=== PATIENT | male | born 1935 | race Caucasian/White ===

== ENCOUNTER 2016-09-24 23:37 | Emergency (ER) | payer BC, OTHER ==
[~2016-09-24] VITALS: Ht 177.8 cm; Wt 100.0 kg
[~2016-09-24 23:37] MED LIST: ALBU0.08 INH; ALBU1AER9 INH; ATV/1 PO; DIGO0.2518 PO; FURO-85 PO; INSDGI SC; NVLGI/PEN SC; SIMV20TA2 PO; WARF5TAB7 PO
[2016-09-24 23:41] VITALS: TEMP 36.5; Ht 177.8 cm; Wt 100.0 kg
--- NOTE | 2016-09-25 00:07 | EMERGENCY ROOM VISIT NOTE ---
History Report prepared by Tracy: Cony Stewart Under the Supervision of: Dr. Ligia Rivers D.O. First contact with patient: 23:47 Chief Complaint: FALL Stated Complaint: FELL AND HAS NECK PAIN History of Present Illness The patient is a 81 year old male who presents to the Emergency Room with complaints of severe and worsening neck and bilateral shoulder pain starting about 17 hours ago. The patient fell off of the edge of the bed as he was getting up this morning. He fell face-forward on the carpeted floor. He hit his head on the floor. The patient notes an abrasion on his forehead and a mild headache. He also complains of neck and bilateral shoulder pain. He reports worsening pain with movement and palpation. He denies abdominal pain, back pain , urinary symptoms, diarrhea, constipation, weakness, or any other complaints. The patient is on Jantoven. Source of History: patient Onset: about 17 hours ago Position: neck, shoulder (bilateral) Symptom Intensity: severe Timing: worsening Modifying Factors (Worsening): movement, other (palpation) Associated Symptoms: + headache, No abdominal pain, No back pain, No diarrhea, No urinary symptoms, No weakness Review of Systems See HPI for pertinent positives & negatives. A total of 10 systems reviewed and were otherwise negative. Past Medical & Surgical Medical Problems: (1) Anticoagulant long-term use (2) Atrial fibrillation (3) Cellulitis (4) COPD (chronic obstructive pulmonary disease) (5) Diabetes (6) Dyslipidemia (7) Hypertension Surgical Problems: (1) History of total right hip arthroplasty (2) Status post right knee replacement Social History Problems: (1) Dislocated hip (2) Hip dislocation, right Family History Diabetes mellitus Heart disease Hypertension Social History Smoking Status: Former Smoker Alcohol Use: none Drug Use: none Marital Status: Housing Status: lives alone Occupation Status: retired Current/Historical Medications Scheduled Digoxin (Lanoxin), 0.25 MG PO HS Furosemide (Lasix), 40 MG PO QAM Insulin Aspart (Novolog Flexpen), 10 UNITS SC TIDM Insulin Glargine (Lantus), 46 UNITS SC QPM Lorazepam (Ativan), 1 MG PO HS Simvastatin (Zocor), 20 MG PO HS Warfarin Sod (Jantoven), 5 MG PO 6XWK Warfarin Sod (Jantoven), 7.5 MG PO WK Scheduled PRN Albuterol (Proair Hfa), 2 PUFFS INH QID PRN for Shortness of Breath Albuterol Soln (Proventil 0.083% 2.5MG/3ML), 2.5 MG INH QID PRN for Cough/ Shortness Of Breath Allergies Coded Allergies: No Known Allergies (Unverified , 09/25/16) Physical Exam Vital Signs Date Time Temp Pulse Resp B/P Pulse Ox O2 Delivery O2 Flow Rate FiO2 09/25/16 02:01 162/91 09/25/16 01:45 79 18 193/74 96 Nasal Cannula 5.0 09/25/16 00:56 83 18 183/90 97 Nasal Cannula 5.0 09/25/16 00:36 71 09/24/16 23:41 36.5 66 22 170/75 94 Room Air Physical Exam HEENT: Head - normocephalic. Abrasion and contusion to the right forehead. Pupils are equal, round, and reactive to light. Extraocular eye muscles are intact and sclera are anicteric. Nose - moist nasal mucosa without evidence of trauma or discharge. Mouth - moist buccal mucosa with no trauma to the teeth or signs of malocclusion. Neck: The neck is supple. Reproducible discomfort with palpation over the mid to upper cervical spine. There is no JVD or tracheal deviation. Chest: There are no signs of deformities, contusions or abrasions to the chest wall. There is no obvious crepitus or paradoxical chest rise. Heart: Regular, rate, and rhythm. There is a normal S1 and S2 with no murmurs, clicks, or gallops appreciated. Lungs: Clear to auscultation bilaterally with no wheezes, rales, or rhonchi. Abdomen: Soft, completely nontender, nondistended, with good bowel sounds. There is no sign of trauma such as contusions, abrasions or penetrations. There are no palpable pulsatile masses or hepatosplenomegaly. There is no guarding, rigidity, or rebound noted. Pelvis: Stable to rock and compression. Extremities: No obvious trauma, deformities, contusions, or edema. There are easily palpable peripheral pulses. Neuro: The patient is awake and alert and easily able to follow commands. Muscle strength is 5 out of 5 in all 4 extremities. Otherwise, neuro exam is unremarkable. Back: The entire thoracic, lumbar, and sacral spine were palpated. There are no obvious step-offs or deformities noted. There are no obvious signs of trauma such as contusions abrasions penetrations noted to the back. Medical Decision & Procedures ER Provider Diagnostic Interpretation: CT results as stated below per my review and radiologist interpretation: CT HEAD No calvarial or brain injury. Involutional and chronic microvascular ischemic changes. CT C SPINE Type II odontoid fracture. Adjacent calcification could reflect early healing of subacute injury. Acute fracture with unrelated chronically calcified pannus is also possible. Regardless, this is unstable and neurosurgical consultation should be considered. Radiologist: All Waters MD Laboratory Results 09/25/16 00:06 09/25/16 00:06 Test 09/25/16 00:06 Red Blood Count 5.39 M/uL (4.7-6.1) Mean Corpuscular Volume 83.3 fL (80-100) Mean Corpuscular Hemoglobin 28.4 pg (25-34) Mean Corpuscular Hemoglobin Concent 34.1 g/dl (32-36) RDW Standard Deviation 43.8 fL (36.4-46.3) RDW Coefficient of Variation 14.4 % (11.5-14.5) Mean Platelet Volume 10.6 fL (7.4-10.4) Anion Gap 9.0 mmol/L (3-11) Est Creatinine Clear Calc Drug Dose 47.4 ml/min Estimated GFR () 53.5 Estimated GFR (Non- 46.1 BUN/Creatinine Ratio 21.4 (10-20) Calcium Level 9.5 mg/dl (8.5-10.1) Laboratory results per my review. Medications Administered Medications (Trade) Dose Ordered Sig/Claribel Route Start Time Stop Time Status Last Admin Dose Admin Hydromorphone HCl 2 mg 2 mg NOW STAT IV 09/25/16 00:09 09/25/16 00:10 DC 09/25/16 00:13 2 MG Sodium Chloride (Nss 1000ml) 1,000 ml @ 200 mls/hr Q5H STAT IV 09/25/16 01:22 09/25/16 02:40 DC 09/25/16 01:22 200 MLS/HR Procedure Dilaudid Inj 2 mg IV ED Course 2347: Past medical records reviewed. The patient was evaluated in room A10. A complete history and physical exam was performed. An IV lock was initiated and labs are drones above. 0009: Dilaudid Inj 2 mg IV. The patient went for CT scan of the brain and cervical spine as described above. 0121: Upon reevaluation, I discussed findings and results with the patient and his family. They verbalized agreement of the treatment plan. The patient is more comfortable at this time. I discussed the patient's case with Dr. Akhtar, emergency department physician with [facility]. The patient will be transferred to [facility] via [facility] for further management and care. I kept the patient's family abreast of situation during the transfer. Medical Decision This is a 81 year old male who presents with neck and bilateral shoulder pain. Differential diagnosis includes but is not limited to forehead contusion, skull fracture, intracranial hemorrhage, C-spine fracture, cervical strain. His labs showed normal white count, stable H&H, BUN 30, creatinine 124, glucose 148. This is an 81-year-old male patient who slipped off of his bed striking his forehead on the floor and suffering a hyperextension injury. On CT scan, the patient has evidence of an odontoid fracture with some surrounding calcifications. In light of this acute injury with a hyperextension mechanism, I am concerned about an acute fracture. The patient is neurologically intact. Consults Time Called: 114 Consulting Physician: Dr. Akhtar, emergency department physician with [facility] Returned Call: 0121 I discussed the patient's case with Dr. Akhtar, emergency department physician with [facility]. Impression Primary Impression: Odontoid fracture Additional Impression: Fall Scribe Attestation The scribe's documentation has been prepared under my direction and personally reviewed by me in its entirety. I confirm that the note above accurately reflects all work, treatment, procedures, and medical decision making performed by me. Departure Information Dispostion Transfer Acute Care Facility Referrals Nolan Jesus D.O. (PCP) Patient Instructions A Signature Page, My [facility]
[2016-09-25] MEDS ORDERED: HYDROmorphone INJ 2 MG/ML SYR/VIAL IV STA (00:09)
[2016-09-25 00:17] LABS: HEMATOCRIT 44.9 % (42-52); MEAN CELL VOLUME 83.3 fL (80-100); MEAN CORPUSCULAR HEMOGLOBIN 28.4 pg (25-34); MEAN CORPUSCULAR HGB CONC 34.1 g/dl (32-36); MEAN PLATELET VOLUME 10.6 fL (7.4-10.4); PLATELET COUNT 166 K/uL (130-400); RED BLOOD COUNT 5.39 M/uL (4.7-6.1); WHITE BLOOD COUNT 9.38 K/uL (4.8-10.8)
[2016-09-25] MEDS ORDERED: FRS/40 PO (00:34)
[2016-09-25] MEDS ORDERED: INSDGI SC (00:36)
[2016-09-25 00:39] LABS: BUN/CREATININE RATIO 21.4 (10-20); CALCIUM 9.5 mg/dl (8.5-10.1); CREATININE 1.4 mg/dl (0.60-1.40); POTASSIUM 3.8 mmol/L (3.5-5.1)
[2016-09-25] MEDS ORDERED: SODIUM CHLORIDE 0.9% 1000ML 1,000 ML IV STA (01:22)
[2016-09-25 01:45] VITALS: PULSE 79; O2SAT 96
[2016-09-25 02:01] VITALS: BP 162/91
--- NOTE | 2016-09-25 07:10 | DIAGNOSTIC IMAGING REPORT ---
HEAD CT NONCONTRAST CT DOSE: 1071.63 mGy.cm HISTORY: Head injury. eval for trauma TECHNIQUE: Multiaxial CT images of the head were performed without the use of intravenous contrast. Automated exposure control was utilized for this study. Comparison: None. Findings: The paranasal sinuses and mastoid air cells are clear. The calvarium and skull base are intact. There is no mass, hematoma, midline shift, acute infarct. White matter hypodensity is nonspecific but suggestive of microvascular ischemic change. The ventricles and sulci demonstrate mild age-related involutional changes. Impression: No acute intracranial abnormality. Atrophy and microvascular ischemic changes. Electronically signed by: Cam Sánchez M.D. 09/25/2016 7:08 AM Dictated Date/Time: 09/25/2016 7:06 AM
--- NOTE | 2016-09-25 07:31 | DIAGNOSTIC IMAGING REPORT ---
CT SCAN OF THE CERVICAL SPINE CLINICAL HISTORY: Fall. COMPARISON STUDY: No priors. TECHNIQUE: CT scan of the cervical spine is performed from the skull base to the upper thoracic spine. Images are reviewed in the axial, sagittal, and coronal planes. IV contrast was not administered for this examination. FINDINGS: Skeletal structures: The skeletal structures are osteopenic. There is an age indeterminant type II odontoid fracture. Periosteal reaction suggested to subacute/healing. Vertebral body height and alignment are maintained. The odontoid process and lateral masses are intact. The atlantoaxial articulation is preserved noting advanced productive degenerative change with bony overgrowth and narrowing of the interval. The spinous processes appear intact. There is advanced multilevel cervical spondylosis. Uncovertebral and facet arthropathy contributing to neural foraminal stenosis at most levels. Anterior osteophytes are seen from C3 through C7. Intervertebral discs: There is moderate to advanced degenerative disc space narrowing seen from C4 to C5 through C6-C7. Moderate narrowing is seen at C3-C4. Central canal: Posterior disc osteophyte complexes at C4-C5, C5-C6, and C6-C7 likely contribute to acquired compromise of the central canal. Soft tissues: The prevertebral and paraspinous soft tissues are within normal limits. There is atherosclerotic calcification of the carotid bulbs. Calvarium: The visualized calvarium at the skull base appears intact. Brain parenchyma: Partially visualized brain parenchyma the skull base is within normal limits noting age-related involutional change. Sinuses and mastoids: The visualized paranasal sinuses are clear. The mastoid air cells are well pneumatized. Lung apices: Emphysematous changes noted. There is biapical scarring. IMPRESSION: 1. There is age indeterminant but suspected acute to subacute type II fracture through the base of the odontoid process. This fracture may be unstable and neurosurgical assessment is recommended. 2. No additional fracture is identified involving the cervical spine. No subluxation is seen. 3. Osteopenia and multilevel cervical spondylosis as above. Electronically signed by: Sterling Balderas M.D. 09/25/2016 7:29 AM Dictated Date/Time: 09/25/2016 7:23 AM
[2016-12-23] MEDS ORDERED: LCTX PO (15:02)
[2016-12-23] MEDS ORDERED: CLIN300C2 PO (15:02)
[2016-12-23] MEDS ORDERED: PRD20 PO (15:02)
[2017-01-12] MEDS ORDERED: DMD20 PO (14:22)
[2017-01-12] MEDS ORDERED: PRED10TA PO (14:22)
[2017-01-12] MEDS ORDERED: GUAI1TAB68 PO (14:35)
[2017-02-19] MEDS ORDERED: SODI1ENE PR (13:39)
[2017-02-19] MEDS ORDERED: FINA5TAB PO (13:39)
[2017-02-19] MEDS ORDERED: ADVIN50/60 INH (13:39)
[2017-02-19] MEDS ORDERED: NVLG SC ×2 (13:39)
[2017-02-19] MEDS ORDERED: LORA-741 PO (13:39)
[2017-02-19] MEDS ORDERED: AMOX500T PO (13:39)
[2017-02-19] MEDS ORDERED: TORS10TA14 PO ×2 (13:39)
[2017-02-19] MEDS ORDERED: IPRASOL4 INH (13:39)
== END 2016-09-25 02:14 | disposition short-term general hospital (02) ==
LOC: C.EDB 23:38 → C.EDA 09-25 02:14
DX: S12.112A Nondisplaced Type II dens fracture, initial encounter for closed fracture (principal); M54.2 Cervicalgia; M25.511 Pain in right shoulder; M25.512 Pain in left shoulder; R51 Headache; S00.83XA Contusion of other part of head, initial encounter; S00.81XA Abrasion of other part of head, initial encounter; I48.91 Unspecified atrial fibrillation; E11.9 Type 2 diabetes mellitus without complications; E78.5 Hyperlipidemia, unspecified; I10 Essential (primary) hypertension; J44.9 Chronic obstructive pulmonary disease, unspecified; Z79.01 Long term (current) use of anticoagulants; Z79.4 Long term (current) use of insulin; Z79.899 Other long term (current) drug therapy; Z87.891 Personal history of nicotine dependence; W06.XXXA Fall from bed, initial encounter

== ENCOUNTER 2016-12-18 17:33 | Inpatient (IN) | payer BC, OTHER ==
[~2016-12-18] VITALS: Ht 177.8 cm; Wt 104.6 kg
[~2016-12-18 17:33] MED LIST changes: +FRS/40 PO; -FURO-85 PO
[2016-12-18] MEDS ORDERED: SODIUM CHLORIDE 0.9% 500ML 500 ML IV STA (17:49)
--- NOTE | 2016-12-18 17:54 | EMERGENCY ROOM VISIT NOTE ---
History Report prepared by Tracy: Joelle Malcolm Under the Supervision of: Dr. Allan Ryan M.D. First contact with patient: 17:42 Chief Complaint: SHORTNESS OF BREATH Stated Complaint: SOB Nursing Triage Summary: [facility]. pt has bilat lower ext edema x1 month has been on lasix not helping. pt was given 1 duoneb prehospital pt arrived with o2 sat at 82% ra using o2 at nursing facility at [facility] . daughter reports pt has periods of demnetia/confusion at nursing facility. pt is alert and oriented now. History of Present Illness The patient is a 81 year old male who presents to the Emergency Room with complaints of constant shortness of breath beginning this afternoon. Per the nursing staff the patient has been in a nursing facility for the past 2 weeks after breaking his neck and having surgery. The patient complains of bilateral leg swelling beginning 1 month ago with no relief after starting Lasix, non- productive cough, and left shoulder pain. Per nursing staff the patient wears 2L of oxygen at the facility he is at. Source of History: patient, nursing staff Onset: this afternoon Position: other (global) Quality: other (SOB) Timing: constant Associated Symptoms: + cough Note: Pt has leg swelling and shoulder pain. Review of Systems See HPI for pertinent positives & negatives. A total of 10 systems reviewed and were otherwise negative. Past Medical & Surgical Medical Problems: (1) Anticoagulant long-term use (2) Atrial fibrillation (3) Cellulitis (4) COPD (chronic obstructive pulmonary disease) (5) Diabetes (6) Dyslipidemia (7) Hypertension (8) Respiratory failure, acute Surgical Problems: (1) History of total right hip arthroplasty (2) Status post right knee replacement Social History Problems: (1) Dislocated hip (2) Hip dislocation, right Family History Diabetes mellitus Heart disease Hypertension Social History Smoking Status: Former Smoker Alcohol Use: none Drug Use: none Marital Status: Housing Status: lives alone Occupation Status: retired Current/Historical Medications Scheduled Aspirin (Aspir-81), 1 TAB PO DAILY Furosemide (Lasix), 1 TAB PO DAILY Insulin Aspart (Novolog Flexpen), 10 UNITS SC TIDM Insulin Glargine (Lantus), 46 UNITS SC QPM Lorazepam (Ativan), 1 MG PO HS Melatonin (Kp Melatonin), 1 TAB PO HS Oseltamivir (Tamiflu), 75 MG PO BID Oxygen (Oxygen), 1 LITER NA PRN Polyethylene Glycol 3350 (Bulk (Polyethylene Glycol 3350), 17 GM PO DAILY Ranitidine (Zantac), 1 TAB PO BID Simvastatin (Zocor), 20 MG PO HS Warfarin Sod (Jantoven), 5 MG PO 6XWK Warfarin Sod (Jantoven), 7.5 MG PO WK Scheduled PRN Ondansetron Hcl (Zofran), 4 MG PO for Nausea Miscellaneous Medications Albuterol Sulfate (Proventil Hfa) Docusate Sodium (Dok) Ipratropium Britt (Nasal) (Ipratropium Britt) Magnesium Hydroxide (Milk Of Magnesia), 30 ML PO Trazodone Hcl (Trazodone), 50 MG PO Allergies Coded Allergies: No Known Allergies (Unverified , 09/25/16) Physical Exam Vital Signs Date Time Temp Pulse Resp B/P Pulse Ox O2 Delivery O2 Flow Rate FiO2 12/18/16 19:50 36.3 108 16 94/59 93 Nasal Cannula 4.0 12/18/16 19:41 107 20 101/54 97 Nasal Cannula 4.0 12/18/16 19:05 102 20 106/66 100 Nebulizer 12/18/16 18:10 91 22 98 Nasal Cannula 5.0 12/18/16 17:48 95 Nasal Cannula 5.0 12/18/16 17:47 95 Nasal Cannula 5.0 12/18/16 17:42 93 12/18/16 17:38 36.6 96 28 103/60 80 Room Air Physical Exam GENERAL: Patient is a healthy-appearing well-nourished HEAD: Normocephalic atraumatic EYES: Ocular movements intact pupils equal and react to light OROPHARYNX mucous membranes are moist no exudates present no erythema or edema present NECK: Supple no nuchal rigidity CHEST: Good equal expansion LUNGS: Clear and equal to auscultation CARDIAC: Normal S1 and S2 ABDOMEN: Soft nontender no guarding BACK: No CVA tenderness EXTREMITIES: No pain upon palpation normal muscle strength in all groups no clubbing cyanosis or edema NEURO: Patient is following commands is answering questions appropriately. Alert and oriented x3 Cranial Nerves 2-12 grossly intact Medical Decision & Procedures Laboratory Results 12/18/16 17:45 Red Blood Count 3.89, Mean Corpuscular Volume 82.3, Mean Corpuscular Hemoglobin 27.0, Mean Corpuscular Hemoglobin Concent 32.8, Mean Platelet Volume 9.4, Neutrophils (%) (Auto) 70.0, Lymphocytes (%) (Auto) 13.3, Monocytes (%) (Auto) 12.6, Eosinophils (%) (Auto) 3.0, Basophils (%) (Auto) 0.9, Neutrophils # (Auto ) 3.72, Lymphocytes # (Auto) 0.71, Monocytes # (Auto) 0.67, Eosinophils # (Auto ) 0.16, Basophils # (Auto) 0.05 12/18/16 17:45 Test 12/18/16 17:45 12/18/16 17:50 12/18/16 17:52 12/18/16 17:55 White Blood Count 5.32 K/uL (4.8-10.8) Red Blood Count 3.89 M/uL (4.7-6.1) Hemoglobin 10.5 g/dL (14.0-18.0) Hematocrit 32.0 % (42-52) Mean Corpuscular Volume 82.3 fL (80-100) Mean Corpuscular Hemoglobin 27.0 pg (25-34) Mean Corpuscular Hemoglobin Concent 32.8 g/dl (32-36) Platelet Count 199 K/uL (130-400) Mean Platelet Volume 9.4 fL (7.4-10.4) Neutrophils (%) (Auto) 70.0 % Lymphocytes (%) (Auto) 13.3 % Monocytes (%) (Auto) 12.6 % Eosinophils (%) (Auto) 3.0 % Basophils (%) (Auto) 0.9 % Neutrophils # (Auto) 3.72 K/uL (1.4-6.5) Lymphocytes # (Auto) 0.71 K/uL (1.2-3.4) Monocytes # (Auto) 0.67 K/uL (0.11-0.59) Eosinophils # (Auto) 0.16 K/uL (0-0.5) Basophils # (Auto) 0.05 K/uL (0-0.2) RDW Standard Deviation 51.0 fL (36.4-46.3) RDW Coefficient of Variation 16.7 % (11.5-14.5) Immature Granulocyte % (Auto) 0.2 % Immature Granulocyte # (Auto) 0.01 K/uL (0.00-0.02) Prothrombin Time 12.8 SECONDS (9.0-12.0) Prothromb Time International Ratio 1.2 (0.9-1.1) Activated Partial Thromboplast Time 35.7 SECONDS (21.0-31.0) Partial Thromboplastin Ratio 1.4 Est Creatinine Clear Calc Drug Dose 30.4 ml/min Estimated GFR () 29.3 Estimated GFR (Non- 25.3 BUN/Creatinine Ratio 18.1 (10-20) Calcium Level 9.2 mg/dl (8.5-10.1) Magnesium Level 2.2 mg/dl (1.8-2.4) Total Bilirubin 0.7 mg/dl (0.2-1) Aspartate Amino Transf (AST/SGOT) 21 U/L (15-37) Alanine Aminotransferase (ALT/SGPT) 11 U/L (12-78) Alkaline Phosphatase 268 U/L (45-117) Total Creatine Kinase 76 U/L (39-308) Creatine Kinase MB 1.5 ng/ml (0.5-3.6) Creatine Kinase MB Ratio 2.0 (0-3.0) Troponin I 0.017 ng/ml (0-0.045) Pro-B-Type Natriuretic Peptide 5308 pg/ml (0-1800) Total Protein 8.4 gm/dl (6.4-8.2) Albumin 2.6 gm/dl (3.4-5.0) Globulin 5.8 gm/dl (2.5-4.0) Albumin/Globulin Ratio 0.4 (0.9-2) Thyroid Stimulating Hormone (TSH) 2.860 uIu/ml (0.300-4.500) Influenza Type A (RT-PCR) Neg for Influ A (NEG) Influenza Type A Antigen Neg for Influ A (NEG) Influenza Type B Antigen Neg for Influ B (NEG) Influenza Type B (RT-PCR) Neg for Influ B (NEG) Bedside Lactic Acid Venous 1.46 mmol/L (0.90-1.70) Bedside Hemoglobin 11.6 g/dl (14.0-18.0) Bedside Hematocrit 34 % (42-52) Bedside Sodium 138 mEq/L (135-144) Bedside Potassium 4.3 mEq/L (3.3-5.0) Bedside Chloride 94 mEq/L (101-112) Bedside Total CO2 31 mEq/l (24-31) Anion Gap 19.0 mmol/L (16-25) Bedside Blood Urea Nitrogen 37 mg/dl (7-18) Bedside Creatinine 2.0 mg/dl (0.6-1.3) Bedside Glucose (other) 144 mg/dl (70-99) Bedside Ionized Calcium (Alex) 1.12 mmol/l (1.12-1.32) Labs reviewed by ED physician. Medications Administered Medications (Trade) Dose Ordered Sig/Claribel Route Start Time Stop Time Status Last Admin Dose Admin Sodium Chloride (Nss 500ml) 500 ml @ 999 mls/hr Q31M STAT IV 12/18/16 17:49 12/18/16 18:19 DC 12/18/16 19:04 999 MLS/HR Albuterol/ Ipratropium (Duoneb) 12 ml ONE ONCE INH 12/18/16 18:00 12/18/16 18:01 DC 12/18/16 18:10 12 ML Piperacillin Sod/ Tazobactam Sod (Zosyn Iv) 4.5 gm NOW STAT IV 12/18/16 18:33 12/18/16 18:35 DC 12/18/16 19:41 4.5 GM Levofloxacin 500 mg 500 mg NOW STAT IV 12/18/16 18:33 12/18/16 18:35 DC 12/18/16 19:05 500 MG Vancomycin HCl 1000 mg/Sodium Chloride 270 ml @ 125 mls/hr NOW STAT IV 12/18/16 18:33 12/18/16 20:42 DC 12/18/16 19:03 125 MLS/HR Methylprednisolone Sodium Succinate/ Syringe (Solu-Medrol IV/ Syringe) 0.32 ml @ 1.5 mls/min 1945 IV 12/18/16 19:45 12/18/16 20:00 DC 12/18/16 20:15 1.5 MLS/MIN ECG Indication: SOB/dyspnea Rate (beats per minute): 96 Rhythm: atrial fibrillation Findings: PVC, RBBB (incomplete), no acute ischemic change, other (old inferior infarct) ED Course 174: Past medical records reviewed. The patient was evaluated in room A3. A complete history and physical examination was performed. 1749: Sodium Chloride 500 ml @ 999 mls/hr IV. 1800: Duoneb 12ml INH. 1833: Vancomycin HCl 1000mg/Sodium Chloride 270ml @ 125mls/hr IV, Levofloxacin 500mg IV, Zosyn IV 4.5gm IV. 1906: I discussed the patient's case with Dr. Hickey, he has agreed to evaluate the patient for further management and care. 1917: Upon reexamination the patient is hemodynamically stable. I discussed results and treatment plan with the patient. He verbalizes agreement and understanding. I spoke with Dr. Hickey from the [facility] Hospitalist Service. The patient will be evaluated for further management. Medical Decision Differential diagnosis: Etiologies such as infections, reactive airway disease, pneumonia, pneumothorax , COPD, CHF, cardiac ischemia, pulmonary embolism, musculoskeletal, gastrointestinal, as well as others were entertained. This is an 81-year-old male who presents emergency department complaining of shortness of breath. The patient has normal chest x-ray therefore he was started on IV antibiotics and pancultured up. He was given an hour-long breathing treatment. I did discuss the case with the hospitalist service who agreed to admit the patient. Patient family were in agreement with the treatment plan. Consults Time Called: 1849 Consulting Physician: Dr. Hickey - [facility] Returned Call: 1906 I discussed the patient's case with Dr. Hickey, he has agreed to evaluate the patient for further management and care. Impression Primary Impression: Pneumonia Scribe Attestation The scribe's documentation has been prepared under my direction and personally reviewed by me in its entirety. I confirm that the note above accurately reflects all work, treatment, procedures, and medical decision making performed by me. Departure Information Dispostion Being Evaluated By Hospitalist Referrals Nolan Jesus D.O. (PCP) Patient Instructions My [facility] Problem Qualifiers Primary Impression: Pneumonia Pneumonia type: due to unspecified organism Laterality: unspecified laterality Lung location: unspecified part of lung Qualified Codes: J18.9 - Pneumonia, unspecified organism
[2016-12-18 18:00] LABS: BASO % 0.9 %; BASO ABS # 0.05 K/uL (0-0.2); COMPLETE YES; IG% 0.2 %; LYMPH % 13.3 %; LYMPH ABS # 0.71 K/uL (1.2-3.4); MEAN CELL VOLUME 82.3 fL (80-100); MEAN CORPUSCULAR HGB CONC 32.8 g/dl (32-36); MEAN PLATELET VOLUME 9.4 fL (7.4-10.4); MONO % 12.6 %; PLATELET COUNT 199 K/uL (130-400); RED BLOOD COUNT 3.89 M/uL (4.7-6.1); WHITE BLOOD COUNT 5.32 K/uL (4.8-10.8)
[2016-12-18] MEDS ORDERED: ALBUT/IPRATROP 3MG/0.5MG NEB 3 ML VIAL INH ONE (18:00)
[2016-12-18 18:08] LABS: ISTAT HEMOGLOBIN 11.6 g/dl (14.0-18.0); ISTAT IONIZED CALCIUM 1.12 mmol/l (1.12-1.32)
--- NOTE | 2016-12-18 18:08 | DIAGNOSTIC IMAGING REPORT ---
CHEST ONE VIEW PORTABLE CLINICAL HISTORY: Cough, hypoxia. COMPARISON STUDY: 12/04/2015 FINDINGS: The heart is enlarged. There is radiographic evidence of congestive failure. Underlying interstitial lung disease cannot be excluded. There are more focal airspace opacities within the base the right upper lobe, and left lung base. A coexistent pneumonia cannot be excluded. Clinical and radiographic follow-up is recommended.[ IMPRESSION: 1. Cardiomegaly and radiographic evidence of congestive failure 2. Focal airspace opacities within the lung bases and base the right upper lobe. These could represent either pneumonia or focal edema. Clinical and radiographic follow-up is recommended Electronically signed by: Kevin Dean M.D. 12/18/2016 6:06 PM Dictated Date/Time: 12/18/2016 6:05 PM
[2016-12-18 18:10] VITALS: PULSE 91; O2SAT 98
[2016-12-18] MEDS ORDERED: IPRA0.03 INH (18:14)
[2016-12-18] MEDS ORDERED: ASPI-232 PO (18:14)
[2016-12-18] MEDS ORDERED: FURO-85 PO (18:14)
[2016-12-18] MEDS ORDERED: DOCU100T PO (18:14)
[2016-12-18] MEDS ORDERED: ALBUAER INH (18:14)
[2016-12-18] MEDS ORDERED: TRAZ50TA35 PO (18:14)
[2016-12-18] MEDS ORDERED: ZNTT/150 PO (18:14)
[2016-12-18] MEDS ORDERED: OXGN (18:14)
[2016-12-18] MEDS ORDERED: MELA1TAB5 PO (18:14)
[2016-12-18] MEDS ORDERED: POLY1POW2 PO (18:14)
[2016-12-18] MEDS ORDERED: MOML PO (18:14)
[2016-12-18] MEDS ORDERED: OSEL75CA12 PO (18:14)
[2016-12-18] MEDS ORDERED: ONDA4TAB46 PO (18:14)
[2016-12-18 18:23] LABS: BUN/CREATININE RATIO 18.1 (10-20); CALCIUM 9.2 mg/dl (8.5-10.1); CREATININE 2.3 mg/dl (0.60-1.40); POTASSIUM 4.2 mmol/L (3.5-5.1)
[2016-12-18 18:28] LABS: ALB/GLOB RATIO 0.4 (0.9-2)
[2016-12-18] MEDS ORDERED: VANCOMYCIN INJ 1,000 MG in SODIUM CHLORIDE 0.9% 250ML 250 ML IV STA (18:33)
[2016-12-18] MEDS ORDERED: LEVAQUIN 500MG / 100ML D5W IV STA (18:33)
[2016-12-18] MEDS ORDERED: PIPERACILLIN/TAZOBACTAM 4.5 GM/100ML D5W IV STA (18:33)
[2016-12-18] MEDS ORDERED: METHYLPREDNISOLONE IV 20 MG in SYRINGE 0 ML IV SCH (19:45)
[2016-12-18 19:50] VITALS: BP 94/59; PULSE 108; TEMP 36.3; O2SAT 93; Ht 177.8 cm; Wt 104.6 kg
[2016-12-18 19:52] LABS: INR 1.2 (0.9-1.1); PARTIAL THROMBOPLASTIN RATIO 1.4; PROTHROMBIN TIME (PATIENT) 12.8 SECONDS (9.0-12.0)
[2016-12-18 19:56] LABS: INFLUENZA A PCR Neg for Influ A (NEG); INFLUENZA B PCR Neg for Influ B (NEG)
[2016-12-18 20:01] LABS: MAGNESIUM 2.2 mg/dl (1.8-2.4); THYROID STIMULATING HORMONE 2.86 uIu/ml (0.300-4.500)
[2016-12-18 20:12] LABS: ALLEN TEST POS (POS); ARTERIAL BLD GAS O2 SATURATION 93.3 % (90-95); ARTERIAL BLOOD GAS BASE EXCESS 7.5 mEq/L (-9-1.8); ARTERIAL BLOOD GAS HCO3 33 mmol/L (19-24); ARTERIAL BLOOD GAS PO2 76 mm/Hg (80-95); ARTERIAL BLOOD GAS pH 7.44 (7.35-7.45); O2 ADMINISTRATION 4 LITERS O2
[2016-12-18] MEDS ORDERED: GUAIFENESIN 600 MG TABCR PO ONE (21:13)
[2016-12-18] MEDS ORDERED: DEXTROSE 50% 50 ML SYR IV PRN (21:15)
[2016-12-18] MEDS ORDERED: TRAMADOL HCL 50 MG TAB PO PRN (21:15)
[2016-12-18] MEDS ORDERED: NITROGLYCERIN 0.4 MG SL PER TAB CHARGE SL PRN (21:15)
[2016-12-18] MEDS ORDERED: INSULIN GLARGINE SOLOSTAR 100 UNITS/ML 3 ML PEN SC ONE (21:15)
[2016-12-18] MEDS ORDERED: GLUCAGON FOR INJ 1 MG VIAL SQ PRN (21:15)
[2016-12-18] MEDS ORDERED: HYDROmorphone INJ 0.5 MG/0.5 ML SYR IV PRN (21:15)
[2016-12-18] MEDS ORDERED: LEVALBUTEROL/IPRATROPIUM NEB INH PRN (21:15)
[2016-12-18] MEDS ORDERED: ACETAMINOPHEN 325 MG TAB PO PRN (21:15)
[2016-12-18] MEDS ORDERED: ONDANSETRON INJ 2 MG/ML 2 ML VIAL IV PRN (21:15)
[2016-12-18] MEDS ORDERED: GLUCOSE 10 TABS/TUBE PO PRN (21:15)
[2016-12-18] MEDS ORDERED: GLUCOSE 40% GEL 15 GM TUBE PO PRN (21:15)
[2016-12-18] MEDS ORDERED: IPRATROPIUM BROMIDE NEB SOLN 0.02% 2.5 ML VIAL INH PRN (21:45)
[2016-12-18] MEDS ORDERED: LEVALBUTEROL 1.25MG/0.5ML NEB INH PRN (21:45)
--- NOTE | 2016-12-18 22:31 | DIAGNOSTIC IMAGING REPORT ---
CT SCAN OF THE ABDOMEN AND PELVIS WITHOUT CONTRAST CLINICAL HISTORY: Generalized abdominal pain COMPARISON STUDY: No previous studies for comparison. TECHNIQUE: CT scan of the abdomen and pelvis was performed from the lung bases to the proximal femurs. Images are reviewed in the axial, sagittal, and coronal planes. IV contrast was not administered for this examination. CT DOSE: 1174.90 mGycm FINDINGS: Lower chest: The heart is enlarged. There are bilateral pleural effusions. There is bibasal atelectasis. There is bilateral subpleural interstitial thickening/edema. The findings are suggestive of congestive failure with interstitial edema. Liver: The unenhanced liver is normal in size, contour, and attenuation. There is no intrahepatic biliary ductal dilatation. Gallbladder: Unremarkable. Spleen: Normal in size and attenuation. Pancreas: Unremarkable. Adrenal glands: Unremarkable. Kidneys: There are bilateral hypodense renal lesions most consistent with cysts. The lesion on the right measures 39 mm. The lesion on the left measures 26 mm. Bowel: There are no transition zones indicate bowel obstruction. Evaluation is limited due to respiratory motion artifact, and the lack of intravenous and oral contrast. Peritoneum: There is no intraperitoneal free air or abdominal ascites. There is a small left inguinal hernia containing fat and fluid Vasculature: There are atheromatous changes present within the aorta. There is no aneurysmal dilatation. Adenopathy: None. Pelvic viscera: There is mild bladder distention. Skeletal structures: There are postsurgical changes of a total right hip arthroplasty IMPRESSION: 1. Evidence of congestive failure with cardiomegaly, bilateral pleural effusions, and bilateral subpleural interstitial thickening/edema 2. No evidence of bowel obstruction. No evidence of free air 3. Bilateral renal cysts. No renal, ureteral, or bladder calculi identified 4. Mildly distended bladder 5. Small left inguinal hernia Electronically signed by: Kevin Dean M.D. 12/18/2016 10:30 PM Dictated Date/Time: 12/18/2016 10:25 PM
[2016-12-18] MEDS: DOXYCYCLINE HYCLATE 100 MG in DEXTROSE 5% 100ML IV SCH (22:33)
[2016-12-18 23:41] VITALS: BP 103/68; PULSE 92; TEMP 36.3; O2SAT 92
[2016-12-19] VITALS (10 sets, daily range): BP systolic 109–124; BP diastolic 71–87; PULSE 84–95; TEMP 36.2–36.7; O2SAT 91–96
[2016-12-19 00:35] LABS: URINE APPEARANCE CLEAR (CLEAR); URINE BILIRUBIN NEG (NEG); URINE COLOR DK YELLOW; URINE NITRITE NEG (NEG); URINE SPECIFIC GRAVITY 1.015 (1.000-1.030); UROBILINOGEN NEG (NEG)
[2016-12-19 00:37] LABS: MANUAL MICROSCOPIC REQUIRED? NO; REVIEW REQ? NO
[2016-12-19] MEDS: PIPERACILL/TAZOBAC IV 3.375 GM in DEXTROSE 5% 100ML IV SCH ×4 (01:06→23:58)
[2016-12-19] MEDS: IPRATROPIUM BROMIDE NEB SOLN 0.02% 2.5 ML VIAL INH SCH ×4 (02:12→19:25)
[2016-12-19] MEDS: LEVALBUTEROL 1.25MG/0.5ML NEB INH SCH ×4 (02:12→19:25)
[2016-12-19] MEDS ORDERED: LEVALBUTEROL/IPRATROPIUM NEB INH SCH (03:00)
[2016-12-19] MEDS: INSULIN ASPART 100 UNITS/ML 3 ML PEN SC SCH ×5 (06:33→21:38)
[2016-12-19 06:49] LABS: HEMATOCRIT 30.5 % (42-52); MEAN CORPUSCULAR HEMOGLOBIN 26.6 pg (25-34); MEAN CORPUSCULAR HGB CONC 32.5 g/dl (32-36); MEAN PLATELET VOLUME 9.5 fL (7.4-10.4); PLATELET COUNT 162 K/uL (130-400); RED BLOOD COUNT 3.72 M/uL (4.7-6.1); WHITE BLOOD COUNT 3.99 K/uL (4.8-10.8)
[2016-12-19 07:16] LABS: COMPLETE YES; IG% 0.3 %; LARGE PLATELETS 1+; LYMPH ABS # 0.16 K/uL (1.2-3.4); MONO % 3.8 %; NEUT % 91.9 %
[2016-12-19 07:41] LABS: BLOOD UREA NITROGEN 42 mg/dl (7-18); BUN/CREATININE RATIO 16.8 (10-20); CALCIUM 8.6 mg/dl (8.5-10.1); CARBON DIOXIDE 29 mmol/L (21-32); CHLORIDE 97 mmol/L (98-107); FERRITIN 103.8 ng/ml (8.0-388.0); GLUCOSE 164 mg/dl (70-99); POTASSIUM 4.9 mmol/L (3.5-5.1); SODIUM 136 mmol/L (136-145); TOTAL IRON BINDING CAPACITY 220 mcg/dl (250-450)
--- NOTE | 2016-12-19 08:05 | DIAGNOSTIC IMAGING REPORT ---
ABDOMINAL ULTRASOUND, RIGHT UPPER QUADRANT HISTORY: Abdominal discomfort. COMPARISON: CT of the abdomen and pelvis December 18, 2016. FINDINGS: Incidental note is made of a small right pleural effusion. This exam is mildly compromised by suboptimal penetration. No hepatic lesions are identified. No gallstones are identified. There is a small amount of sludge within the gallbladder. Gallbladder wall thickness is at the upper limits of normal. The pancreas is unremarkable by sonography. There is no right hydronephrosis. There is a 3.2 cm cyst within the upper pole of the right kidney. There is no biliary ductal dilatation. IMPRESSION: 1. No gallstones or biliary ductal dilatation. 2. Small amount of sludge within the gallbladder. 3. Small right pleural effusion. Electronically signed by: Cuco Simmons M.D. 12/19/2016 8:04 AM Dictated Date/Time: 12/19/2016 8:02 AM
[2016-12-19] MEDS: GUAIFENESIN 600 MG TABCR PO SCH ×2 (08:32→21:33)
[2016-12-19] MEDS: RANITIDINE HCL 150 MG TAB PO SCH ×2 (08:33→21:33)
[2016-12-19] MEDS: INSULIN GLARGINE SOLOSTAR 100 UNITS/ML 3 ML PEN SC SCH ×2 (08:44→21:39)
[2016-12-19] MEDS ORDERED: INSULIN GLARGINE SOLOSTAR 100 UNITS/ML 3 ML PEN SC SCH (09:00)
[2016-12-19] MEDS ORDERED: INSULIN GLARGINE PER UNIT 5 UNITS in SYRINGE 0 ML SC SCH (09:00)
[2016-12-19] MEDS ORDERED: PIPERACILL/TAZOBAC CONSULT ACTIVE PRN (09:00)
--- NOTE | 2016-12-19 10:16 | HISTORY & PHYSICAL EXAMINATION ---
DATE OF ADMISSION: 12/18/2016 History obtained from patient records, patient's daughter, and family. The patient is a [facility] resident. CHIEF COMPLAINT: Shortness of breath. HISTORY OF PRESENT ILLNESS: Medical history significant for chronic respiratory failure secondary to COPD on home O2, JOHN as per records, chronic diastolic heart failure (EF of 54% from October 2016), moderate aortic stenosis as per records, hypertension per records, Afib on anticoagulation, past tobacco abuse, chronic anemia (baseline hemoglobin 11-12), history of colonic polyposis, diverticulosis as per records, dementia as per records, DM2 insulin requiring, chronic renal insufficiency ( baseline creatinine 2), odontoid fracture status post surgery (10/2016). Patient admitted at [facility] 11/06/2016 for neck surgery for odontoid fracture secondary to fall, occasional wound drainage. As per records, the last 2 week patient noted to have gary leg swelling. Patient being given diuretics at [place]. Outpatient [facility] Cardiology consultation contemplated. Px noted have sticky dry cough sx, unable to expectorate in the last week. No witnessed aspiration. Worsening bilateral lower extremity edema noted. Px noted to have dyspnea, wheezing and fatigue as per records. At the Emergency Room, the patient given vancomycin, Levaquin, Zosyn and albuterol for pneumonia. MEDICAL HISTORY: As above. Px has seen Dr. Brannon in the past for heart issues as per daughter. As per daughter, nonspecific epigastric discomfort, nausea, emesis symptoms. Outpatient CT abdomen and pelvis contemplated. Decreasing hemoglobin noted the last few months as per daughter from baseline of 12s. August 2009 colonoscopy showed polyps and diverticulosis. SURGERIES: He has had neck surgery, knee surgery, hip replacement, neck surgery. HOME MEDICATIONS: Include aspirin, Proventil, Lasix, ipratropium, Lantus, Ativan, milk of mag, Zofran, oxygen, Tamiflu, Zantac, Zocor, trazadone, Coumadin. ALLERGIES: No known drug allergies. FAMILY HISTORY: Family history of dementia. PERSONAL AND SOCIAL HISTORY: Past tobacco abuse. No chronic intake of alcoholic beverages. 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 REVIEW OF SYSTEMS: As per HPI, all other ROS negative. PHYSICAL EXAMINATION: VITAL SIGNS: Blood pressure 103/60, pulse rate 105, RR 28, temperature 36.6, sats 80s on room air, later 95 on 5 liters. GENERAL: Noted to be obese, minimal respiratory distress, somewhat laconic, oriented though and coherent. SKIN: Pallor. HEAD, EYES, EARS, NOSE, AND THROAT: Pale palpebral conjunctivae. Dry mucosa. nasal cannula in place NECK: Short neck. LUNGS: Decreased breath sounds. HEART: Irregular. ABDOMEN: some distension, no exquisite tenderness EXT : min LE edema, no tenderness NE : no gross focality LABORATORY DATA: Hemoglobin was noted to be 10.5, white cell count 10, platelets 199. INR was 1.2. Sodium 140, potassium 3.5, BUN 40, creatinine 2.3, glucose 140. alkaline phosphatase 268, lipase was 60. troponin normal. ABG pH 7.44, pCO2 49, pO2 76, 92 on 4 liters. Hemoglobin A1c was 7.7 from November 2016 Chest x-ray showed CHF, focal opacities right upper lobe. EKG Afib. Gallbladder ultrasound showed sludge. CT abdomen and pelvis showed distended bladder. Hemoccult positive yellow stool noted at the ER ASSESSMENT: 1. Acute on chronic hypoxemic respiratory failure multifactorial : decompensated heart failure/ history mod as per records COPD exacerbation 2 to HCAP rule out aspiration. no sepsis, past tobacco abuse. 2. Hypertension, blood pressure on the lower side. 3. Chronic renal insufficiency. Creatinine at baseline. 4. AF, rate controlled INR subtx 5. DM2, insulin requiring suboptimal control as of recent HgA1c. 6. Biliary colic symptoms. 7. Occult GI bleed. Hemoglobin drop over the last few months Hx diverticulosis, colonic polyps as per records. 8. dementia as per records PLAN: PCU supplemental O2 Cultures. Doxycycline and Zosyn for now. nebs RTC, p.r.n. Prednisone course for poss COPD exacerbation. swallow eval Pulmonary consult RE COPD exacerbation. Cardio consult, decompensated heart failure. Hold off on diuretics for now given borderline blood pressure and kidney function. strict IOs, daily weights, CHF education ff HH, transfuse prbc if Hg less than 7 and/or symptomatic anemia anemia yeh hold ASA, coumadin for now given anemia progression and occult GI bleed GI consult RE occult GI bleed, progression of anemia Daughter agreeable to endoscopy for father if warranted to ascertain source of occult GI bleed. Basal insulin adjusted for clear liquid diet, ISS BG goal 140-180. DVT prophylaxis. SCDs while Coumadin on hold. FULL CODE PER DAUGHTER, Ms. Savanah Quiroz. MTDD
[2016-12-19] MEDS: DOXYCYCLINE HYCLATE 100 MG in DEXTROSE 5% 100ML IV SCH (10:47)
--- NOTE | 2016-12-19 12:41 | PULMONARY CONSULTATION ---
DATE OF CONSULTATION: 12/19/2016 DATE OF CONSULTATION: 12/19/2016. TIME: 8:10 a.m. REPORT OF CONSULTATION: The patient was seen in room 233. He is a pleasant 81-year-old male who has a chief complaint of shortness of breath. He was brought to the Emergency Room yesterday from [facility]. He has had increasing shortness of breath he says for about a month but obviously more severe in the last couple of days. He was found to have an oxygen saturation of 80% on room air. He has noticed increased swelling. Recently Unna boot type devices were applied to his legs because of the swelling. He has been given Lasix without a lot of benefit apparently. He has a dry cough. He states the cough has not changed and has been there for 18 years. He has noticed definitely more shortness of breath however. He feels the shortness of breath was increased when he was lying back as compared with sitting up. He denies having any chest pains, chills, fevers or sweats. He has never coughed up blood. The patient is not the best historian. He has had at least 1 other hospitalization for shortness of breath and perhaps 2. He describes 1 episode about 10 years ago when he was unclear [facility] and he mentioned that a year ago he was in [facility] and was hospitalized. I could not verify with certainty that that was all accurate. The patient fairly recently had a fall resulting in a neck fracture. He apparently was at [facility] and underwent surgery. Following surgery, he has been at [facility]. The patient could not tell me any definite dates of these episodes. In addition to the breathing problems, he states he has had some abdominal pain yesterday which has now resolved. He states 2 days ago he had 2 episodes of vomiting. The abdominal pain was in the middle of the abdomen. He has some degree of chronic constipation. He states he typically only has a bowel movement about every 2 days. He did undergo a CT of the abdomen since admission. Other complaints include his left shoulder pain, which he states occurred at the time of his fall a few months ago when he fractured his neck. Apparently at that time he had fallen or slid off of his bed. The patient previously had been living alone apparently. PAST PULMONARY HISTORY: The patient is reported to have COPD. He states that he gets nebulizer treatments at [facility], although I only saw a metered dose inhaler on his list of medicines. He is an ex-smoker but he quit about 40 years ago. He estimates that he smoked approximately 1 pack per day for up to 25 years. The patient relates that he stopped drinking about 30 years ago. PAST SURGICAL HISTORY: 1. Right total hip replacement. 2. Right total knee replacement. 3. Recent neck surgery. PAST MEDICAL HISTORY: 1. Atrial fibrillation. 2. Cellulitis. 3. Hypertension. 4. Hyperlipidemia. 5. Diabetes type 2. 6. Questionable history of reflux based upon his medications. 7. Questionable recent flu as the patient is noted to be on Tamiflu. ALLERGIES: No known allergies. FAMILY HISTORY: Reportedly positive for diabetes, heart disease, and hypertension. 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 REVIEW OF SYSTEMS: This is somewhat limited as the patient is not the best historian. He denies having any loss of consciousness or headaches. He denies visual complaints. He has had cataract surgeries in the past. He has nasal congestion when he wears his oxygen, but he states when he does not wear oxygen his nasal passages are pretty clear. He denies difficulty swallowing. He denies any palpitations. He has been short of breath even at rest in the last day or two. Usually it is only with exertion. The remainder of the review of systems is negative except as noted above. Ten systems were reviewed. PHYSICAL EXAMINATION: GENERAL: Mr. Jeronimo is a pleasant 81-year-old male who was cooperative, alert and oriented. He appeared in no distress. His BMI is elevated modestly to 32.3. VITAL SIGNS: Temperature is 36.7. I did not find any documented fever since admission. HEAD, EYES, EARS, NOSE, AND THROAT: Eye examination showed pupils were reactive. Implants were noted bilaterally. Nasal cannula was in place. Nasal passages were congested mildly. Mouth exam showed teeth to be in suboptimal repair. There was no erythema or exudate. NECK: Palpation of the neck reveals no lymph nodes. SKIN EXAMINATION: Shows areas of decreased skin color consistent with areas of vitiligo. CHEST: Showed mild dorsal kyphosis. He does have in the posterior neck area recent scar. CARDIAC: Cardiac rate is currently 89 per minute. The rhythm is irregularly irregular and compatible with atrial fibrillation. His blood pressure this morning is 109/71. Respiratory rate is 20 breaths per minute. He does cough when I asked him to take deep breaths. He is congested bilaterally with predominantly rhonchi heard both anteriorly and posteriorly. The oxygen saturation is 92% on 5 liters. ABDOMEN: Soft. Bowel sounds were normal. There was no focal tenderness to palpation. No definite mass was palpable. EXTREMITIES: Revealed that he has a boot type of wrappings on both lower extremities. Thus, it was difficult to evaluate the lower extremity edema. He did not appear to have any cyanosis or clubbing. A chest x-ray showed cardiomegaly with a suggestion of vascular prominence which would be compatible with congestive heart failure. There was an area of increased peripheral opacity somewhat vaguely in the right upper lung field. Review of prior x-ray done 12/04/2015 suggests lung markings in that area may have been slightly more prominent than normal but not as pronounced as the current. One could not well define the left lower lobe. He did undergo abdomen and pelvis CAT scan last evening. Bilateral pleural effusions were seen, slightly greater on the left than on the right. There again was a suggestion of vascular prominence which would be compatible with CHF with an inability to exclude underlying interstitial lung disease. Ultrasound of the abdomen showed no gallstones or biliary duct dilation. There was a small amount of sludge within the gallbladder. Small right effusion was noted. LABORATORY DATA: CBC this morning shows a white count of 3.99. Hemoglobin is 9.9. Platelets are 162,000. Yesterday afternoon the white count was 5.32 and hemoglobin was 10.5 and thus these have declined slightly. It is notable that yesterday the neutrophil percent was 70 and today it is 91.9, thus he is extensively developing a left shift. The INR is 1.2 and a PTT was 35.7. Urinalysis was not significantly abnormal. Arterial blood gas last evening done on 4 liter nasal cannula shows a pH of 7.44 with a pCO2 of 49 and a pO2 of 76. Electrolytes show sodium of 136, potassium 4.9, chloride 97, bicarbonate 29. The BUN is 42 with a creatinine of 2.5. Yesterday's creatinine was 2.3. Blood sugar this morning was 164. The serum iron was low at 34 and the iron binding capacity was low at 220. Ferritin level was acceptable at 103.8. Troponin was negative. The BNP was severely elevated at 5,308. AST was 21 and ALT was 11 and total bilirubin was 0.7. Total protein was slightly elevated at 8.4 with albumin of 2.6 and globulin of 5.8. TSH level was 2.86. The patient's EKG showed atrial fibrillation with a incomplete right bundle branch block and possible right ventricular hypertrophy. IMPRESSIONS: 1. Acute congestive heart failure. 2. Chronic obstructive pulmonary disease with exacerbation. 3. Rule out developing pneumonia. 4. Bilateral pleural effusions. 5. Atrial fibrillation. 6. Renal insufficiency. 7. Anemia. COMMENTS AND RECOMMENDATIONS: The patient has a very high BNP. His chest x-ray is suggestive for CHF. On examination, his lungs sound more like COPD than CHF, but I suspect there is a combination of both problems. He has not had a dramatic diuresis, although he does state that he feels better. The renal insufficiency may make it difficult to diurese him. The pleural effusions would be compatible with CHF. I cannot exclude a developing pneumonia based upon the x-ray findings but thus far he has not had any fevers and white counts were normal. He is, however, developing a left shift based upon today's CBC. From a pulmonary perspective the patient is on guaifenesin 600 mg q. 12 hours. He is on prednisone 40 mg daily. I suspect there is a tendency towards conservativism because of his diabetes. He is on levalbuterol and ipratropium every 6 hours. He is on Zosyn and doxycycline. I agree with all of the above. One might wonder if the patient could have underlying sleep apnea. This might be suggested with his history of atrial fibrillation. I did not discuss his sleep situation in depth with him at this time. Thank you very much for asking me to assist in his care.
--- NOTE | 2016-12-19 13:35 | CARDIOLOGY CONSULTATION ---
DATE OF CONSULTATION: 12/19/2016 DATE OF CONSULTATION: 12/19/2016. REFERRING PHYSICIAN: Dr. Gonzalez Bains. REASON FOR CONSULTATION: Congestive heart failure, valvular heart disease. CHIEF COMPLAINT ON ADMISSION: Shortness of breath. HISTORY OF PRESENT ILLNESS: Mr. Jeronimo is a complex 81-year-old resident of [facility] who presents with progressive shortness of breath and edema. The patient is a poor historian. Most history is gleaned from the medical record. The patient carries a history of oxygen dependent COPD, chronic diastolic heart failure with preserved LV systolic function, moderate aortic stenosis, hypertension, chronic atrial fibrillation with former tobacco abuse. Per review of records, it appears his Coumadin was placed on hold due to occult GI blood loss. The patient denies any shortness of breath currently. States he is feeling better since admission. He has been treated with antibiotics and intravenous steroids. Diuretics were not given due to borderline low blood pressure and renal dysfunction. He denies chest pain or palpitations. Notes a dry cough and intermittent wheezing. No witnessed aspiration. Offers no other complaints at this time. REVIEW OF SYSTEMS: The pertinent positive noted above, a comprehensive 10-system review is otherwise unremarkable, however, the patient is a poor historian. PAST MEDICAL HISTORY: 1. Chronic atrial fibrillation. 2. Oxygen dependent COPD. 3. Moderate aortic stenosis. 4. Diastolic heart failure. 5. Tobacco abuse. 6. Anemia. 7. Occult GI blood loss. 8. Colonic polyposis. 9. Diverticulosis. 10. TIA. 11. Dementia. 12. Diabetes type 2. 13. CKD with a baseline creatinine of 2.2. 14. Recent odontoid fracture. PAST SURGICAL HISTORY: 1. Recent neck surgery [facility]. 2. Hip replacement. 3. Knee surgery. OUTPATIENT MEDICATIONS: 1. Aspirin 81 mg daily. 2. Lasix 40 mg daily. 3. Insulin 10 units subQ 3 times daily. 4. Lantus 46 units at bedtime. 5. Ativan 1 mg at bedtime. 6. Melatonin 1 tablet at bedtime. 7. Tamiflu twice daily. 8. Oxygen 1 liter as needed. 9. Zantac 1 tab twice daily. 10. Simvastatin 20 mg daily. 11. Warfarin 5 mg 6 times per week, 7.5 mg once weekly. 12. Albuterol. 13. Colace. 14. Milk of Magnesia as needed. 15. Trazodone as needed. ALLERGIES: No known drug allergies. FAMILY HISTORY: Negative for premature CAD or sudden cardiac , however noncontributory given patient's advanced age. SOCIAL HISTORY: Former heavy tobacco use. He is , lives at [facility] post-orthopedic neck surgery. ECG ON ADMISSION: Atrial fibrillation, right bundle branch block, age indeterminate inferior infarct. Telemetry demonstrates rate controlled atrial fibrillation. LABORATORY DATA: Troponins are negative x2 sets. Sodium is 136, potassium is 4.9, chloride is 97, CO2 is 29, BUN is 42, creatinine is 2.50. Iron is low at 34. Ferritin is 103.8. White blood cell count 3.99, hemoglobin is 9.9, platelet count is 162. INR is 1.2. Influenza screen is negative. PHYSICAL EXAMINATION: VITAL SIGNS: Temperature is 36.5 degrees centigrade, pulse 91 beats per minute and irregular, respiratory rate is 20 breaths per minute, blood pressure 110/72, SAO2 is 95% on 5 liters nasal cannula. GENERAL: NAD, poor historian, awake, alert and oriented to person and place. HEAD, EYES, EARS, NOSE, AND THROAT: His mucous membranes are dry. No scleral icterus. NECK: Supple without JVD or HJR. No carotid bruit. HEART: Heart sounds are distant, with a normal S1 and S2. There is a 2/6 systolic ejection murmur heard best at the cardiac base. LUNGS: Demonstrate scattered rhonchi with expiratory wheezing. ABDOMEN: Soft, nontender. There is no rebound or guarding, normal bowel sounds. EXTREMITIES: Warm and dry. There is +1 to 2 bilateral pedal and pretibial edema. NEUROLOGIC EXAMINATION: Demonstrates no focal motor deficit. FINAL IMPRESSION: 1. Complex 81-year-old male admitted with multifactorial respiratory insufficiency with severe underlying COPD and oxygen dependence, suspect primarily COPD exacerbation. The patient examines to be intravascularly dry with borderline low systolic blood pressure, elevated creatinine, dry mucous membranes. 2. Chronic rate control atrial fibrillation -- anticoagulation currently on hold due to anemia and presumed GI blood loss as per review of records. 3. Chronic kidney disease stage III with elevated creatinine today. Likely related to diuretic therapy as an outpatient. 4. Peripheral edema related to hypoalbuminemia, chronic right sided heart failure, and venous insufficiency. 5. Moderate aortic stenosis. PLAN AND RECOMMENDATIONS: Repeat resting 2D transthoracic echo will be performed to assess severity of aortic stenosis, pulmonary arterial pressures, and LV systolic function. Agree with withholding diuretic therapy today with repeat basic metabolic panel in the a.m. He will continue current antibiotics, steroids, nebulizer treatments as per internal medicine. Anticoagulation is currently on hold due to iron deficiency anemia and presumed occult GI blood loss. Heart rate controlled on telemetry without need for addition of beta-janel therapy at this time. Further recommendations pending review of resting 2D transthoracic echo. MTDD
--- NOTE | 2016-12-19 13:39 | GASTROINTESTINAL CONSULTATION ---
DATE OF CONSULTATION: 12/19/2016 REQUESTING PHYSICIAN: Dr. Bains. CHIEF COMPLAINT: Shortness of breath. HISTORY OF PRESENT ILLNESS: The patient is an 81-year-old male with a past medical history significant for COPD on home O2 who presented to the Emergency Room with worsening shortness of breath. Gastroenterology is consulted for evaluation of a mild stable anemia. The patient is a very poor historian as a result of underlying dementia. Most of the history is obtained from the patient's medical record. He has a history of aortic stenosis, hypertension, atrial fibrillation with anticoagulation, colonic polyps and a prior TIAs. There has been no mention with regard to melena, hematochezia or cold positive stools. PAST MEDICAL HISTORY: 1. COPD on home O2. 2. Congestive heart failure. 3. Moderate aortic stenosis. 4. Hypertension. 5. Atrial fibrillation. 6. Chronic anemia. 7. History of colonic polyps. 8. TIA. 9. Dementia. 10. Diabetes mellitus 2. 11. Chronic renal insufficiency. 12. Odontoid fracture status post surgical revision. PAST SURGICAL HISTORY: 1. Neck surgery as noted by internal medicine. 2. Knee surgery and hip replacement. OUTPATIENT MEDICATIONS: 1. Aspirin. 1. Proventil. 2. Lasix. 3. Ipratropium. 4. Lantus insulin. 5. Ativan. 6. Milk of magnesia. 7. Zofran. 8. Oxygen. 9. Zantac. 10. Zocor. 11. Trazodone. 12. Coumadin. ALLERGIES: No drug allergies. FAMILY HISTORY: No history of colon cancer or stomach cancer. SOCIAL HISTORY: The patient is a prior tobacco user but is not smoking presently. No alcohol intake as he resides in a [facility]. REVIEW OF SYSTEMS: CARDIAC: The patient denies chest pain. PULMONARY: The patient with shortness of breath and cough. ENT: No difficulty swallowing. PSYCHIATRIC: History of dementia. DERMATOLOGY: No rashes. No itching. GASTROINTESTINAL: No difficulty swallowing. No pain with swallowing. MUSCULOSKELETAL: No joint pains or muscle pains. NEUROLOGIC: No headache today. ENDOCRINE: No polyuria. The patient does have a history of diabetes. PHYSICAL EXAMINATION: VITAL SIGNS: Temperature 36.5, respiratory rate is 20, pulse 91, blood pressure is 110/72, oxygen saturation is 95%. HEENT: No scleral icterus noted. NECK: JVD not noted. EXTREMITIES: No edema noted. CARDIAC: Irregular rate and rhythm with a systolic murmur. LUNGS: Diffuse crackles throughout all lung giron. ABDOMEN: Soft, nontender. No hepatosplenomegaly appreciated. LABORATORY DATA: White blood cell count 3.99, hemoglobin is 9.9, hematocrit is 30.5, platelet count is 162. PT is 12.8, INR 1.2. Chemistry - sodium 136, potassium is 4.9, BUN 42, creatinine 2.5. Calcium 8.6, iron saturation 14%, ferritin 103. IMPRESSION: An 81-year-old male with numerous medical problems, referred to GI for evaluation of mild anemia. Given his dementia, I would recommend that the patient, family and internal medicine provider discussed desire to undergo endoscopic evaluation. Given the patient's findings, I wonder if he more likely has anemia of chronic disease as opposed to gastrointestinal blood losses. I would suggest that the internal medicine obtain a stool Hemoccult to see if they are positive. This would most likely be related to his use of aspirin in addition to Coumadin. RECOMMENDATIONS: 1. No plan for endoscopy at this time given the patient's pulmonary issues. 2. Internal medicine should discuss with the family about the desire for them to undergo more aggressive interventions. 3. Consider stool Hemoccults. Please call with any questions or concerns, please call with any questions during the patient's hospital admission as we will not follow this patient day to day.
[2016-12-19] MEDS ORDERED: NURSING VERBAL MED ORDER ONE (16:00)
--- NOTE | 2016-12-19 17:51 | ECHOCARDIOGRAM REPORT ---
*NOTICE TO RECEIVING REPUBLICAN AGENCY This information is strictly Confidential and protected under [place] law. [place] law prohibits you from making any further disclosure of this information unless further disclosure is expressly permitted by the written consent of the person to whom it pertains or is authorized by law. A general authorization for the release of medical or other information is not sufficient for this purpose. Hospital accepts no responsibility if the information is made available to any other person, INCLUDING THE PATIENT. Interpretation Summary * Name: CRISTINA QUIROZ Study Date: 12/19/2016 03:57 PM BP: 114/73 mmHg * Patient Location: C.2T\S\S233\S\1 HR: 90 * : 1935 (M/d/yyyy) Gender: Male Height: 70 in * Age: 81 yrs Ethnicity: [place] Weight: 225 lb * Ordering Physician: Josiah Fuentes * Referring Physician: Mimi Juarez * Performed By: Nimco Biggs RDCS * * Reason For Study: Atrial fibrillation * BSA: 2.2 m2 * The study was technically limited. * There is no comparison study available. * -- Conclusions -- * Left ventricular systolic function is mildly reduced. * Ejection Fraction = 40-45%. * The right ventricle is moderately dilated. * The right ventricular systolic function is moderately reduced. * Flattened septum is consistent with RV pressure/volume overload. * Dilated inferior vena cava with reduced collapsability with sniff indicates an elevated right atrial pressure of 15 mmHg * 2D echo imaging and doppler interrogation of the aortic valve are discordant. Moderate aortic valve stenosis is suspected. * There is mild to moderate mitral regurgitation. * There is mild tricuspid regurgitation. Procedure Details * A complete two-dimensional transthoracic echocardiogram was performed (2D, M-mode, Doppler and color flow Doppler). Left Ventricle * The left ventricle is not well visualized. * The left ventricular apex is not well visualized. * There is normal left ventricular wall thickness. * Left ventricular systolic function is mildly reduced. * Ejection Fraction = 40-45%. * Flattened septum is consistent with RV pressure/volume overload. Right Ventricle * The right ventricle is moderately dilated. * The right ventricular systolic function is moderately reduced. Atria * The left atrium is moderately dilated. * The right atrium is moderately dilated. Mitral Valve * The mitral valve leaflets appear thickened, but open well. * There is no mitral valve stenosis. * There is mild to moderate mitral regurgitation. Tricuspid Valve * The tricuspid valve is not well visualized. * There is no tricuspid stenosis. * There is mild tricuspid regurgitation. Aortic Valve * The aortic valve is moderately calcified. * 2D echo imaging and doppler interrogation of the aortic valve are discordant. Moderate aortic valve stenosis is suspected. * There is no significant aortic regurgitation. Pulmonic Valve * The pulmonary valve is not well seen, but the Doppler examination is normal without significant regurgitation or stenosis. Great Vessels * The aortic root is normal size. Pericardium/Pleural * There is no pericardial effusion. Great Vessels * Dilated inferior vena cava with reduced collapsability with sniff indicates an elevated right atrial pressure of 15 mmHg MMode 2D Measurements and Calculations IVSd 1.1 cm LVIDd 4.8 cm LVIDs 3.8 cm LVPWd 1.1 cm IVS/LVPW 1.0 FS 21.4 % EDV(Teich) 108.3 ml ESV(Teich) 61.3 ml EF(Teich) 43.4 % EDV(cubed) 111.6 ml ESV(cubed) 54.1 ml EF(cubed) 51.5 % LV mass(C)d 197.1 grams LV mass(C)dI 89.8 grams/m\S\2 SV(Teich) 47.0 ml SI(Teich) 21.4 ml/m\S\2 SV(cubed) 57.5 ml SI(cubed) 26.2 ml/m\S\2 Ao root diam 4.0 cm Ao root area 12.9 cm\S\2 ACS 0.69 cm LA dimension 4.8 cm asc Aorta Diam 3.7 cm LA/Ao 1.2 LVAd ap4 21.4 cm\S\2 LVLd ap4 6.4 cm EDV(MOD-sp4) 60.7 ml EDV(sp4-el) 60.4 ml LVAs ap4 15.7 cm\S\2 LVLs ap4 5.9 cm ESV(MOD-sp4) 36.2 ml ESV(sp4-el) 35.6 ml EF(MOD-sp4) 40.3 % EF(sp4-el) 41.1 % LVAd ap2 23.2 cm\S\2 LVLd ap2 7.5 cm EDV(MOD-sp2) 60.6 ml EDV(sp2-el) 61.1 ml LVAs ap2 16.3 cm\S\2 LVLs ap2 6.6 cm ESV(MOD-sp2) 33.1 ml ESV(sp2-el) 34.2 ml EF(MOD-sp2) 45.5 % EF(sp2-el) 44.0 % LVLd %diff 14.1 % EDV(MOD-bp) 64.9 ml LVLs %diff 10.6 % ESV(MOD-bp) 36.5 ml EF(MOD-bp) 43.8 % SV(MOD-sp4) 24.5 ml SI(MOD-sp4) 11.1 ml/m\S\2 SV(MOD-sp2) 27.6 ml SI(MOD-sp2) 12.6 ml/m\S\2 SV(MOD-bp) 28.4 ml SI(MOD-bp) 13.0 ml/m\S\2 SV(sp4-el) 24.8 ml SI(sp4-el) 11.3 ml/m\S\2 SV(sp2-el) 26.9 ml SI(sp2-el) 12.3 ml/m\S\2 Doppler Measurements and Calculations MV E max richard 104.3 cm/sec MV dec time 0.15 sec Ao V2 max 195.5 cm/sec Ao max PG 15.3 mmHg Ao max PG (full) 13.6 mmHg LV V1 max PG 1.6 mmHg LV V1 max 64.0 cm/sec MR max richard 377.6 cm/sec MR max PG 57.0 mmHg MR mean richard 304.9 cm/sec MR mean PG 41.1 mmHg MR VTI 111.7 cm PA V2 max 60.1 cm/sec PA max PG 1.4 mmHg PA acc slope 872.5 cm/sec\S\2 PA acc time 0.05 sec TR max richard 241.3 cm/sec PA pr(Accel) 55.2 mmHg
--- NOTE | 2016-12-19 18:27 | Progress Note ---
Internal Med Progress Note Date of Service: Dec 19, 2016. Provider Documentation: SUBJECTIVE: says feeling better family in room and thinks patient is doing better denies sob has some cough afebrile denies any chest pain OBJECTIVE: Vital Signs-as noted below Exam: General-alert and awake. Not in distress ENT-normal hearing Neck-no neck masses Lungs-cta b/l b/l rhonchi Heart-s1 and s2 heard regular rate and rhythm no murmurs' Abdomen-soft bowel sounds present non tender no distension Extremities-no edema no erythema Neuro-alert and awake moves extremities Lab data as noted below. ASSESSMENT & PLAN: 1. Acute on chronic hypoxemic respiratory failure multifactorial : mostly from Healthcare pneumonia and copd exacerbation sputum growing stap mrsa swan positive iv abx Zosyn, vanco and po azithromycin f/u x on po steroids and nebs appreciate pulmonary inputs close monitor Chronic diastolic chf moderate holding diuretics secondary to above and ARF will monitor for volume overload. ARF from above not getting fluids secondary to question of chf close monitor of labs AF, rate controlled not on anticoagulation secondary to question of occult GI bleed and anemia workup. 5. DM2, insulin requiring on Lantus and iss will monitor whole on steroids. 6. Biliary colic symptoms asymptomatic now. . 7. Occult GI bleed. Hemoglobin drop over the last few months Hx diverticulosis, colonic polyps as per records. GI plans to workup if family willing once respiratory issues resolves. 8. dementia as per records DISPOSITION monitor in tele pt/ot when stable social service for d/c planning Vital Signs: Date Time Temp Pulse Resp B/P Pulse Ox O2 Delivery O2 Flow Rate FiO2 12/19/16 17:24 36.5 91 20 124/87 94 Nasal Cannula 4.0 12/19/16 16:00 Room Air 4.0 12/19/16 14:04 90 18 91 Nasal Cannula 4.0 12/19/16 12:55 36.3 87 20 114/73 95 Nasal Cannula 4.0 12/19/16 12:00 Room Air 4.0 12/19/16 08:44 36.5 91 20 110/72 95 Room Air 12/19/16 07:30 Nasal Cannula 4.0 12/19/16 07:21 87 18 92 Nasal Cannula 5.0 12/19/16 04:00 Nasal Cannula 4.0 12/19/16 03:07 36.7 84 20 109/71 96 Nasal Cannula 4.0 12/19/16 02:12 95 18 95 Nasal Cannula 5.0 12/19/16 00:00 Nasal Cannula 4.0 12/18/16 23:41 36.3 92 18 103/68 92 Nasal Cannula 5.0 12/18/16 20:30 36.6 105 20 112/63 96 12/18/16 20:15 105 20 112/63 96 Nasal Cannula 4.0 12/18/16 19:50 36.3 108 16 94/59 93 Nasal Cannula 4.0 12/18/16 19:41 107 20 101/54 97 Nasal Cannula 4.0 12/18/16 19:05 102 20 106/66 100 Nebulizer Lab Results: Results Past 24 Hours Test 12/18/16 20:04 12/19/16 00:00 12/19/16 00:01 12/19/16 06:32 Range/Units Arterial Blood pH 7.44 7.35-7.45 Arterial Blood Partial Pressure CO2 49 35-46 mmHg Arterial Blood Partial Pressure O2 76 80-95 mm/Hg Arterial Blood HCO3 33 19-24 mmol/L Arterial Blood Oxygen Saturation 93.3 90-95 % Arterial Blood Base Excess 7.5 -9-1.8 mEq/L Arterial Blood Gas Delivery 4 LITERS O2 Slava Test POS POS Urine Color DK YELLOW Urine Appearance CLEAR CLEAR Urine pH 6.0 4.5-7.5 Urine Specific [place] 1.015 1.000-1.030 Urine Protein TRACE NEG Urine Glucose (UA) NEG NEG Urine Ketones NEG NEG Urine Occult Blood NEG NEG Urine Nitrite NEG NEG Urine Bilirubin NEG NEG Urine Urobilinogen NEG NEG Urine Leukocyte Esterase NEG NEG Urine WBC (Auto) 1-5 0-5 /hpf Urine RBC (Auto) 0-4 0-4 /hpf Urine Hyaline Casts (Auto) 1-5 0-5 /lpf Urine Epithelial Cells (Auto) 10-20 0-5 /lpf Urine Bacteria (Auto) NEG NEG Bedside Glucose 162 170 70-99 mg/dl Test 12/19/16 06:33 12/19/16 11:53 12/19/16 16:49 Range/Units White Blood Count 3.99 4.8-10.8 K/uL Red Blood Count 3.72 4.7-6.1 M/uL Hemoglobin 9.9 14.0-18.0 g/dL Hematocrit 30.5 42-52 % Mean Corpuscular Volume 82.0 80-100 fL Mean Corpuscular Hemoglobin 26.6 25-34 pg Mean Corpuscular Hemoglobin Concent 32.5 32-36 g/dl Platelet Count 162 130-400 K/uL Mean Platelet Volume 9.5 7.4-10.4 fL Neutrophils (%) (Auto) 91.9 % Lymphocytes (%) (Auto) 4.0 % Monocytes (%) (Auto) 3.8 % Eosinophils (%) (Auto) 0.0 % Basophils (%) (Auto) 0.0 % Neutrophils # (Auto) 3.67 1.4-6.5 K/uL Lymphocytes # (Auto) 0.16 1.2-3.4 K/uL Monocytes # (Auto) 0.15 0.11-0.59 K/uL Eosinophils # (Auto) 0.00 0-0.5 K/uL Basophils # (Auto) 0.00 0-0.2 K/uL RDW Standard Deviation 50.9 36.4-46.3 fL RDW Coefficient of Variation 16.8 11.5-14.5 % Immature Granulocyte % (Auto) 0.3 % Immature Granulocyte # (Auto) 0.01 0.00-0.02 K/uL Large Platelets 1+ Absolute Reticulocyte Count 0.04 0.02-0.10 10^6/uL Percent Reticulocyte Count 1.0 0.5-2.0 % Sodium Level 136 136-145 mmol/L Potassium Level 4.9 3.5-5.1 mmol/L Chloride Level 97 98-107 mmol/L Carbon Dioxide Level 29 21-32 mmol/L Anion Gap 10.0 3-11 mmol/L Blood Urea Nitrogen 42 7-18 mg/dl Creatinine 2.50 0.60-1.40 mg/dl Est Creatinine Clear Calc Drug Dose 26.8 ml/min Estimated GFR () 26.5 Estimated GFR (Non- 22.9 BUN/Creatinine Ratio 16.8 10-20 Random Glucose 164 70-99 mg/dl Calcium Level 8.6 8.5-10.1 mg/dl Iron Level 34 35-175 mcg/dl Total Iron Binding Capacity 220 250-450 mcg/dl Transferrin 174 200-360 mg/dl Transferrin % Saturation 14 20-50 % Ferritin 103.8 8.0-388.0 ng/ml Troponin I < 0.015 0-0.045 ng/ml Vitamin B12 Level 1048 211-911 pg/mL Folate 7.23 >5.38 ng/mL Bedside Glucose 198 212 70-99 mg/dl Microbiology Results 12/18/16 Blood Culture, Received Pending 12/18/16 Blood Culture, Received Pending 12/19/16 MRSA DNA Surveillance Screen - Final, Complete Specimen Positive for MRSA by DNA Probe 12/18/16 MRSA DNA Surveillance Screen - Final, Complete Specimen Positive for MRSA by DNA Probe 12/18/16 Gram Stain - Final, Resulted 12/18/16 Wound Culture - Preliminary, Resulted Staphylococcus Aureus
[2016-12-19] MEDS ORDERED: VANCOMYCIN INJ 2,000 MG in SODIUM CHLORIDE 0.9% 500ML 500 ML IV ONE ×2 (19:30→21:00)
[2016-12-19] MEDS: AZITHROMYCIN 250 MG TAB PO SCH (19:33)
[2016-12-19] MEDS ORDERED: VANCOMYCIN CONSULT ACTIVE PRN (20:15)
[2016-12-19] MEDS ORDERED: [UNRECOGNIZED DRUG - REMARK] ONE (20:45)
[2016-12-19] MEDS: TRAZODONE HCL 50 MG TAB PO SCH (21:34)
[2016-12-19] MEDS: SIMVASTATIN 20 MG TAB PO SCH (21:34)
[2016-12-19] MEDS: DOCUSATE SODIUM/SENNA 50/8.6MG TAB PO SCH (21:34)
--- NOTE | 2016-12-19 21:51 | Pharmacy Progress Note ---
Pharmacy Antibiotic Consult Date of Service: Dec 19, 2016. Pharmacy Dosing Scope Pharmacy is consulted to initiate Vancomycin IV dosing therapy, order appropriate labs and adjust drug dose/frequency. Subjective The patient is a 81 year old male admitted on Dec 18, 2016 at 20:02 now with positive cultures for Staph aureus. Objective Height (Feet): 5 Height (Inches): 10.00 Weight (Kilograms): 102.200 Lab Results (24hrs): Laboratory Tests Test 12/19/16 06:33 BUN/Creatinine Ratio 16.8 Blood Urea Nitrogen 42 mg/dl Creatinine 2.50 mg/dl White Blood Count 3.99 K/uL Red Blood Count 3.72 M/uL Hemoglobin 9.9 g/dL Hematocrit 30.5 % Mean Corpuscular Volume 82.0 fL Mean Corpuscular Hemoglobin 26.6 pg Mean Corpuscular Hemoglobin Concent 32.5 g/dl Platelet Count 162 K/uL Mean Platelet Volume 9.5 fL Neutrophils (%) (Auto) 91.9 % Lymphocytes (%) (Auto) 4.0 % Monocytes (%) (Auto) 3.8 % Eosinophils (%) (Auto) 0.0 % Basophils (%) (Auto) 0.0 % Neutrophils # (Auto) 3.67 K/uL Lymphocytes # (Auto) 0.16 K/uL Monocytes # (Auto) 0.15 K/uL Eosinophils # (Auto) 0.00 K/uL Basophils # (Auto) 0.00 K/uL Micro Results: Item Value Date Time Gram Stain - Final Resulted 12/18/16 2100 Drainage - Surface Neck MRSA DNA Surveillance Screen - Final Complete 12/19/16 1428 Nasal Specimen Positive for MRSA by DNA Probe MRSA DNA Surveillance Screen - Final Complete 12/18/16 2100 Nasal Specimen Positive for MRSA by DNA Probe Blood Culture Received 12/18/16 1842 Blood Pending Blood Culture Received 12/18/16 1837 Blood Pending RUN DATE: 12/19/16 [facility] LAB PAGE 1 RUN TIME: 1504 Specimen Inquiry PATIENT: CRISTINA QUIROZ LOC: Ingrid U # : [id number] AGE/SX: 81/M ROOM: [facility] REG : 12/18/[address]: Julian Peralta MD : 1935 BED: 1 DIS : STATUS: ADM IN TLOC: SPEC #: [id number] DRE: 12/18/16 STATUS: RES REQ #: [id number] RECD: 12/18/[address]: Gonzalez Bains M.D. SOURCE: DRAIN-SURF ENTR: 12/18/16 [facility] DR: Elmer Wei, DO [facility] NECK Julian Peralta MD Panlilio, Robin A. , Mimi Dupree,P.AHebert ORDERED: WING WND CU/MONISHA COMMENTS: Has Specimen Been Obtained/Collected? Y Procedure Result Verified Site GRAM STAIN Final 12/19/16-0804 RESULT FEW EPITHELIAL CELLS FEW WBCs SEEN MANY GRAM POSITIVE COCCI SURFACE WOUND CULTURE Preliminary 12/19/16-1504 Organism 1 STAPHYLOCOCCUS AUREUS QUANITY MODERATE SENS SENSITIVITY TO FOLLOW Recent Pertinent Medications Item Value Date Time Vancomycin HCl 1 ea 12/19/162014 (Consult) UD PRN/N/A Azithromycin 500 mg 12/19/161999 (Zithromax Tab) HS/PO 12/19/16 1933 Piperacillin Sod/ 1 ea 12/19/16 0900 Tazobactam Sod UD PRN/N/A (Consult) Piperacillin Sod/ 115 ml @ 28.75 mls/hr 12/19/16 0000 Tazobactam Sod Q8H/IV 12/19/16 1536 3.375 gm/Dextrose Doxycycline 110 ml @ 55 mls/hr 12/18/16 2200 Hyclate 100 mg/ Q12H/IV 12/19/16 1047 Dextrose Assessment & Plan [age] yo male now with positive MRSA nasal swab and positive culture for Staph aureus from neck drainage. Patient diminshed renal function thus will dose cautiously. Loading dose: Vancomycin 2000 mg (~20 mg/kg) IV X 1 dose then: Vancomycin 1400 mg IV every 30 hours. Goal peak level estimate: between 30 - 40 mcg/mL. Goal trough level estimate: between 15 - 20 mcg/mL. Vancomycin trough level has been ordered for: December 21 prior to the 2200 hours dose to verify renal clearance ([id number]) Pharmacy will continue to follow and will adjust dose/frequency as necessary. Thank you
[2016-12-20] VITALS (9 sets, daily range): BP systolic 110–119; BP diastolic 65–79; PULSE 77–91; TEMP 36.3–36.6; O2SAT 90–98
[2016-12-20] MEDS: LEVALBUTEROL 1.25MG/0.5ML NEB INH SCH ×4 (02:42→19:36)
[2016-12-20] MEDS: IPRATROPIUM BROMIDE NEB SOLN 0.02% 2.5 ML VIAL INH SCH ×4 (02:42→19:36)
[2016-12-20 06:20] LABS: BASO % 0.1 %; BASO ABS # 0.01 K/uL (0-0.2); COMPLETE YES; HEMATOCRIT 32.5 % (42-52); IG% 0.3 %; LYMPH % 3.9 %; LYMPH ABS # 0.29 K/uL (1.2-3.4); MEAN CELL VOLUME 83.1 fL (80-100); MEAN CORPUSCULAR HEMOGLOBIN 27.6 pg (25-34); MEAN CORPUSCULAR HGB CONC 33.2 g/dl (32-36); MONO % 10.6 %; NEUT % 85.1 %; PLATELET COUNT 175 K/uL (130-400); RED BLOOD COUNT 3.91 M/uL (4.7-6.1); WHITE BLOOD COUNT 7.53 K/uL (4.8-10.8)
[2016-12-20 06:51] LABS: BUN/CREATININE RATIO 18.7 (10-20); CALCIUM 8.7 mg/dl (8.5-10.1); CREATININE 2.6 mg/dl (0.60-1.40); POTASSIUM 4.3 mmol/L (3.5-5.1)
[2016-12-20] MEDS ORDERED: SODIUM CHLORIDE 0.9% 1000ML 1,000 ML IV SCH (07:30)
[2016-12-20] MEDS: PIPERACILL/TAZOBAC IV 3.375 GM in DEXTROSE 5% 100ML IV SCH ×2 (08:41→15:49)
[2016-12-20] MEDS: RANITIDINE HCL 150 MG TAB PO SCH ×2 (08:43→20:11)
[2016-12-20] MEDS: GUAIFENESIN 600 MG TABCR PO SCH ×2 (08:43→20:10)
[2016-12-20] MEDS: INSULIN ASPART 100 UNITS/ML 3 ML PEN SC SCH ×4 (08:52→21:00)
[2016-12-20] MEDS: INSULIN GLARGINE SOLOSTAR 100 UNITS/ML 3 ML PEN SC SCH ×2 (08:53→20:15)
--- NOTE | 2016-12-20 08:59 | PULMONARY PROGRESS NOTE ---
DATE: 12/20/2016 TIME: 8:12 a.m. SUBJECTIVE: The patient is a poor historian. He said he is still somewhat short of breath. He states he still has a dry cough which he has had for a long time. He is not complaining of any chest pains. He has had difficulty urinating. Apparently, he has had to be straight catheterized several times. OBJECTIVE: The patient did not appear in any distress. He was cooperative and oriented. According to the nursing staff, he has had periods of confusion. Temperature is 36.3. He has not had any significant fevers. The heart rate is 81 per minute. The rhythm is atrial fibrillation. Blood pressure is 119/79. Respiratory rate is 20 breaths per minute. Diffuse wheeze and rhonchi are heard bilaterally posteriorly. The patient sat up for me to auscultate his lungs and his posterior neck appears to be somewhat erythematous and has some partially open areas from his surgery. Oxygen saturation today is 97% on 2 liters. The abdomen is soft. Bowel sounds are active. There was no tenderness to palpation. Extremities are difficult to evaluate because the patient has the Unna boots on each leg. White count is 7.53. Hemoglobin is 10.8. Platelets are 175,000. Electrolytes show sodium 134, potassium 4.3, chloride 95, bicarbonate 28. The BUN is 49 with a creatinine of 2.6. Previously, the BUN was 42 with a creatinine of 2.5. IMPRESSION: 1. Chronic obstructive pulmonary disease with exacerbation -- rule out pneumonia. 2. Questionable congestive heart failure. 3. Bilateral pleural effusions. 4. Atrial fibrillation. 5. Renal insufficiency. 6. Anemia. COMMENTS: The patient seems about the same as yesterday. He still has wheezes heard on exam. The x-ray findings would make one suspect CHF including the pleural effusions; however, cardiology department does not think he has significant CHF at present. Perhaps his valvular heart disease and renal insufficiency also contributing to his respiratory issues. The patient is now on vancomycin. He does have a culture of his neck wound showing MRSA. We will repeat a chest x-ray tomorrow to further evaluate for possible pneumonic infiltrate.
--- NOTE | 2016-12-20 10:48 | Cardiology Follow-Up ---
Subjective General Date of Service: Dec 20, 2016. Pt evaluation today including: conversation w/ patient, conversation w/ family , physical exam, chart review, lab review, review of studies, review of inpatient medication list History of Present Illness The patient is a 81 year old male seen in follow up. Edema improved. Urinary retention noted and mackenzie placed. Rate controlled atrial fibrillation on monitor. Denies CP or SOB at rest. +MRSA from healing cervical spine surgical site. Patient is poor historian. Allergies Coded Allergies: No Known Allergies (Unverified , 09/25/16) Social History Smoking Status: Former Smoker Hx Tobacco Use In Past Year?: No Hx Alcohol Use - Type And Amou: No Hx Substance Use - Type And Am: No Problem List Medical Problems: (1) Cellulitis of right leg Status: Acute (2) Fall Status: Acute (3) Odontoid fracture Status: Acute (4) Pneumonia Status: Acute Review of Systems Respiratory: No cough, No dyspnea at rest, No dyspnea on exertion, No hemoptysis, No shortness of breath, No sputum, No wheezing Cardiac: + edema, No PND, No chest pain, No claudication, No orthopnea, No palpitations Physical Exam Vital Signs Last Vital Signs Documentation Date Time Temp Pulse Resp B/P Pulse Ox O2 Delivery O2 Flow Rate FiO2 12/20/16 07:30 Nasal Cannula 2.0 12/20/16 07:15 81 18 97 12/20/16 02:56 36.3 119/79 Physical Exam Constitutional: Level of Distress: chronically ill ENMT: pertinent finding (posterior cervical erythema) Lungs: Auscultation: expiratory wheezing, rhonchi Cardiovascular: Heart Auscultation: I/ KELSEY, irregular rate rhythm Abdomen: Inspection & Palpation: soft, non-distended, no tenderness, guarding & rebound Extremities: no cyanosis, no ulcers, edema (1+ B/L pedal edema) Neurologic: Gait & Station: pertinent finding Cranial Nerves: grossly intact Assessment and Plan Assessment and Plan FINAL IMPRESSION: 1. Complex 81-year-old male admitted with multifactorial respiratory insufficiency with severe underlying COPD, oxygen dependence, acute COPD exacerbation, and possible HCAP. 2D echocardiogram demonstrate RV dysfunction and evidence of pulmonary HTN. LE edema improving with bedrest and placement of mackenzie catheter. The patient examines to be intravascularly dry with borderline low systolic blood pressure, elevated creatinine, dry mucous membranes. 2. Chronic rate control atrial fibrillation - anticoagulation currently on hold due to anemia and presumed GI blood loss as per review of records. 3. Acute renal insufficiency on chronic kidney disease stage III. - creatinine trending upward - appreciate nephrology input 4. Peripheral edema related to hypoalbuminemia, chronic right sided heart failure in setting of acute renal insufficiency and urinary retention. 5. Moderate aortic stenosis. 6. +MRSA from posterior cervical surgical incision. PLAN AND RECOMMENDATIONS: Recommend maintain relatively even I/o's at this time. Follow urine output, renal function, and respiratory status. Consider orthopedic opinion regarding c-spine surgical site. Add aspirin 81mg daily. Heme test stool as recommended by gastroenterology. Laboratory Results Last 24 Hours Test 12/19/16 11:53 12/19/16 16:49 12/19/16 21:26 12/20/16 06:10 Bedside Glucose 198 mg/dl 212 mg/dl 200 mg/dl White Blood Count 7.53 K/uL Red Blood Count 3.91 M/uL Hemoglobin 10.8 g/dL Hematocrit 32.5 % Mean Corpuscular Volume 83.1 fL Mean Corpuscular Hemoglobin 27.6 pg Mean Corpuscular Hemoglobin Concent 33.2 g/dl Platelet Count 175 K/uL Mean Platelet Volume 10.0 fL Neutrophils (%) (Auto) 85.1 % Lymphocytes (%) (Auto) 3.9 % Monocytes (%) (Auto) 10.6 % Eosinophils (%) (Auto) 0.0 % Basophils (%) (Auto) 0.1 % Neutrophils # (Auto) 6.41 K/uL Lymphocytes # (Auto) 0.29 K/uL Monocytes # (Auto) 0.80 K/uL Eosinophils # (Auto) 0.00 K/uL Basophils # (Auto) 0.01 K/uL RDW Standard Deviation 50.5 fL RDW Coefficient of Variation 16.6 % Immature Granulocyte % (Auto) 0.3 % Immature Granulocyte # (Auto) 0.02 K/uL Sodium Level 134 mmol/L Potassium Level 4.3 mmol/L Chloride Level 95 mmol/L Carbon Dioxide Level 28 mmol/L Anion Gap 11.0 mmol/L Blood Urea Nitrogen 49 mg/dl Creatinine 2.60 mg/dl Est Creatinine Clear Calc Drug Dose 25.8 ml/min Estimated GFR () 25.3 Estimated GFR (Non- 21.8 BUN/Creatinine Ratio 18.7 Random Glucose 132 mg/dl Calcium Level 8.7 mg/dl Test 12/20/16 06:39 Bedside Glucose 130 mg/dl
[2016-12-20] MEDS ORDERED: ASPIRIN 81 MG CHEW PO ONE (11:00)
[2016-12-20] MEDS: ALBUMIN HUMAN 25% 12.5 GM/50 ML VIAL IV SCH ×2 (11:50→20:29)
[2016-12-20] MEDS ORDERED: VANCOMYCIN INJ 1,400 MG in SODIUM CHLORIDE 0.9% 500ML 500 ML IV SCH (16:00)
--- NOTE | 2016-12-20 17:02 | NEPHROLOGY CONSULTATION ---
DATE OF CONSULTATION: 12/20/2016 ATTENDING OF RECORD: Dr. Peralta. REASON FOR CONSULTATION: Elevated creatinine. HISTORY OF PRESENT ILLNESS: This is an 81-year-old male who lives at [facility], who has underlying dementia and presents with worsening shortness of breath and lower extremity swelling. The patient does have underlying COPD requiring chronic oxygen, chronic diastolic heart failure with moderate aortic stenosis, chronic AFib as well as hypertension who had a significant odontoid fracture and currently is scratching the back of his neck where the previous surgery was and has some drainage coming from the back of his neck with some redness. No documented fevers while in house. Creatinine was 2.3, next morning 2.5 and today up to 2.6. The patient was not given any diuretics while here in the hospital, currently on vancomycin as well as normal saline at 50 mL an hour. The patient's albumin levels are low at 2.6. The patient though appears comfortable without any significant complaints. Did have urinary retention and a Broussard catheter has been placed, urinating well about close to 3 liters out yesterday. Echocardiogram was done which showed right-sided heart failure with a right ventricle moderately dilated, RV systolic function moderately reduced, flattened septum consistent with RV pressure volume overload with an EF of 40%-45%, and moderate aortic stenosis. Blood cultures are negative to date. Wound culture from the next growing Staph aureus. Abdominal pelvis CT was done without contrast, and kidneys showed bilateral hypodense renal lesions most consistent with evidence of congestive heart failure with cardiomegaly, bilateral pleural effusions as well as bilateral subpleural interstitial thickening and edema. REVIEW OF SYSTEMS: The patient is a poor historian with underlying dementia, but is without any significant complaints. Denies any fevers or chills. States he is not hungry. Denies any nausea or vomiting. No chest pain and states that he is not short of breath, although this is unreliable at this time. all other review of systems otherwise negative. PAST MEDICAL HISTORY: Chronic AFib, COPD requiring oxygen, moderate aortic stenosis, underlying dementia, type 2 diabetes, CKD stage IV with baseline creatinine in the low 2's, history of odontoid fracture. PAST SURGICAL HISTORY: Odontoid fracture repair in [place], hip replacement. FAMILY HISTORY: Negative for renal disease. SOCIAL HISTORY: Former heavy tobacco use. No alcohol, no drugs, resident of [facility]. CURRENT MEDICATIONS: Sliding-scale insulin, Xopenex inhalers, Zosyn 3.375 IV q. 8, prednisone 40 mg a day, Zocor 20 mg at night, normal saline at 50 mL an hour, vancomycin 1400 mg every 30 hours. PHYSICAL EXAMINATION: VITAL SIGNS: Temperature 36.6, pulse 81, respiratory rate 18, blood pressure 119/79, satting 97% on 2 liters. GENERAL: Awake, alert, oriented x2 with underlying dementia. HEENT: Mucous membranes are dry. NECK: With open wound from previous surgery with drainage. LUNGS: Positive wheezing. CARDIAC: Mild systolic murmur, irregular. ABDOMEN: Bowel sounds positive, soft, nontender. EXTREMITIES: Mild edema appears to be improved compared to admission. NEUROLOGIC: Has underlying dementia. DERMATOLOGIC: Open wound on the back of his neck appears to be chronically scratching at it. LABORATORIES: White count 7, H\T\H 10 and 32, platelet count is 175. Blood gas from the showed pH 7.44, pCO2 of 49, pO2 of 76, and bicarbonate 33. INR is 1.2. ua negative. UA is bland with specific gravity 1.015, pH of 6, negative blood, trace protein. Sodium was 134, potassium 4.3, chloride is 95, bicarbonate is 28, BUN is 49, creatinine is 2.6, glucose 132, calcium 8.7, albumin is 2.6 from the . Wound culture positive for Staph aureus. Blood cultures are negative. Chest x-ray on admission showed cardiomegaly with radiographic evidence of congestive heart failure, focal airspace opacities within the lungs, right upper lobe represent either pneumonia or focal edema. ASSESSMENT AND PLAN: 1. Chronic kidney disease with creatinine trending up from 2.3 up to 2.6, nonoliguric and appears to have acute tubular necrosis on chronic kidney disease stage 4 with stable electrolytes. Volume status difficult to assess. Does have underlying chronic obstructive pulmonary disease requiring oxygen at baseline as well as signs of right-sided heart failure and moderate aortic stenosis with edema in the lower extremities, which appears to be improving through leg elevation alone. Would stop the normal saline at this time given the significant wheezing on the lungs, although, patient appears comfortable and in no apparent distress, oxygenating well on current nasal cannula. Would rather treat with albumin infusions 12.5 grams IV b.i.d. and hold the normal saline. Okay with the creatinine trending up to optimize lungs and edema. Patient does have urinary retention and agree with the Broussard catheter, may benefit from a routine urological consultation. 2. ID-wound culture positive, Currently undergoing treatment with vancomycin and Zosyn and has significant drainage coming from his neck and the patient continues to scratch at it. No fevers, and no elevated white count which is good and current blood cultures are negative, but concerned with positive wound cultures that this may worsen with the patient continuing to irritate the wound, difficult since patient has underlying dementia. I agree with the Broussard, current antibiotics, treating the underlying wound; however, concerned of fluid overload given the significant wheezing, would stop the IV fluids and continue albumin infusion alone. Greatly appreciate Dr. Fuentes as well as Dr. Daily of both cardiology and pulmonary in their help of this complicated unfortunate patient with multiple comorbidities and underlying dementia. Appreciate consultation. RAYMOND
--- NOTE | 2016-12-20 17:09 | Progress Note ---
Internal Med Progress Note Date of Service: Dec 20, 2016. Provider Documentation: SUBJECTIVE: says he is doing fine knows he is in [facility], knows this is December denies sob no chest pain no complaints OBJECTIVE: Vital Signs-as noted below Exam: General-alert and awake. Not in distress ENT-normal hearing Neck-no neck masses Lungs-cta b/l mild b/l rhonchi Heart-s1 and s2 heard regular rate and rhythm no murmurs' Abdomen-soft bowel sounds present non tender no distension Extremities-pedal edema present no erythema Neuro-alert and awake moves extremities Lab data as noted below. ASSESSMENT & PLAN: 1. Acute on chronic hypoxemic respiratory failure multifactorial : mostly from [facility] pneumonia and copd exacerbation sputum growing stap mrsa swabpositive iv abx Zosyn, vanco and po azithromycin f/u final cx on po steroids and nebs appreciate pulmonary inputs improving close monitor Chronic diastolic chf moderate holding diuretics secondary to above and ARF will monitor for volume overload. ARF from above not getting fluids secondary to question of chf cr 2.6 today nephrology started on albumin close monitor of labs AF, rate controlled not on anticoagulation secondary to question of occult GI bleed and anemia workup. DM2, insulin requiring on Lantus and iss will monitor whole on steroids. Neck cellulitis? recent cervical surgery on iv abx will monitor Biliary colic symptoms asymptomatic now. . Occult GI bleed. Hemoglobin drop over the last few months Hx diverticulosis, colonic polyps as per records. GI plans to workup if family willing once respiratory issues resolves. hb ~10 dementia as per records DISPOSITION monitor in tele pt/ot when stable social service for d/c planning Vital Signs: Date Time Temp Pulse Resp B/P Pulse Ox O2 Delivery O2 Flow Rate FiO2 12/20/16 15:48 36.5 89 18 114/65 90 Nasal Cannula 12/20/16 15:30 Nasal Cannula 2.0 12/20/16 14:23 81 18 98 Nasal Cannula 2.0 12/20/16 12:36 36.4 81 18 117/73 96 Nasal Cannula 2.0 12/20/16 11:30 Nasal Cannula 2.0 12/20/16 07:30 Nasal Cannula 2.0 12/20/16 07:15 81 18 97 Nasal Cannula 2.0 12/20/16 04:00 Nasal Cannula 4.0 12/20/16 02:56 36.3 91 22 119/79 91 Nasal Cannula 3.0 12/20/16 02:42 83 18 98 Nasal Cannula 4.0 12/20/16 00:00 Nasal Cannula 4.0 12/19/16 23:32 36.6 92 22 120/82 91 Nasal Cannula 4.0 12/19/16 20:23 36.2 95 20 119/73 94 Nasal Cannula 4.0 12/19/16 20:00 Nasal Cannula 4.0 12/19/16 19:25 90 18 96 Nasal Cannula 4.0 12/19/16 17:24 36.5 91 20 124/87 94 Nasal Cannula 4.0 Lab Results: Results Past 24 Hours Test 12/19/16 21:26 12/20/16 06:10 12/20/16 06:39 12/20/16 11:13 Range/Units Bedside Glucose 200 130 139 70-99 mg/dl White Blood Count 7.53 4.8-10.8 K/uL Red Blood Count 3.91 4.7-6.1 M/uL Hemoglobin 10.8 14.0-18.0 g/dL Hematocrit 32.5 42-52 % Mean Corpuscular Volume 83.1 80-100 fL Mean Corpuscular Hemoglobin 27.6 25-34 pg Mean Corpuscular Hemoglobin Concent 33.2 32-36 g/dl Platelet Count 175 130-400 K/uL Mean Platelet Volume 10.0 7.4-10.4 fL Neutrophils (%) (Auto) 85.1 % Lymphocytes (%) (Auto) 3.9 % Monocytes (%) (Auto) 10.6 % Eosinophils (%) (Auto) 0.0 % Basophils (%) (Auto) 0.1 % Neutrophils # (Auto) 6.41 1.4-6.5 K/uL Lymphocytes # (Auto) 0.29 1.2-3.4 K/uL Monocytes # (Auto) 0.80 0.11-0.59 K/uL Eosinophils # (Auto) 0.00 0-0.5 K/uL Basophils # (Auto) 0.01 0-0.2 K/uL RDW Standard Deviation 50.5 36.4-46.3 fL RDW Coefficient of Variation 16.6 11.5-14.5 % Immature Granulocyte % (Auto) 0.3 % Immature Granulocyte # (Auto) 0.02 0.00-0.02 K/uL Sodium Level 134 136-145 mmol/L Potassium Level 4.3 3.5-5.1 mmol/L Chloride Level 95 98-107 mmol/L Carbon Dioxide Level 28 21-32 mmol/L Anion Gap 11.0 3-11 mmol/L Blood Urea Nitrogen 49 7-18 mg/dl Creatinine 2.60 0.60-1.40 mg/dl Est Creatinine Clear Calc Drug Dose 25.8 ml/min Estimated GFR () 25.3 Estimated GFR (Non- 21.8 BUN/Creatinine Ratio 18.7 10-20 Random Glucose 132 70-99 mg/dl Calcium Level 8.7 8.5-10.1 mg/dl Test 12/20/16 13:40 12/20/16 16:23 Range/Units Random Vancomycin Level 16.4 mcg/ml Bedside Glucose 185 70-99 mg/dl
[2016-12-20] MEDS: TRAZODONE HCL 50 MG TAB PO SCH (20:10)
[2016-12-20] MEDS: DOCUSATE SODIUM/SENNA 50/8.6MG TAB PO SCH (20:11)
[2016-12-20] MEDS: AZITHROMYCIN 250 MG TAB PO SCH (20:12)
[2016-12-20] MEDS: SIMVASTATIN 20 MG TAB PO SCH (20:12)
[2016-12-21] VITALS (10 sets, daily range): BP systolic 105–108; BP diastolic 61–73; PULSE 78–89; TEMP 36.3–36.7; O2SAT 92–98
[2016-12-21] MEDS: PIPERACILL/TAZOBAC IV 3.375 GM in DEXTROSE 5% 100ML IV SCH ×4 (00:12→23:14)
[2016-12-21] MEDS: LEVALBUTEROL 1.25MG/0.5ML NEB INH SCH ×4 (02:00→18:56)
[2016-12-21] MEDS: IPRATROPIUM BROMIDE NEB SOLN 0.02% 2.5 ML VIAL INH SCH ×4 (02:00→18:56)
[2016-12-21 06:40] LABS: COMPLETE YES; HEMATOCRIT 32.3 % (42-52); IG% 0.3 %; LYMPH % 7.9 %; LYMPH ABS # 0.57 K/uL (1.2-3.4); MEAN CELL VOLUME 81.6 fL (80-100); MEAN CORPUSCULAR HEMOGLOBIN 26.5 pg (25-34); MEAN CORPUSCULAR HGB CONC 32.5 g/dl (32-36); MEAN PLATELET VOLUME 9.8 fL (7.4-10.4); MONO % 8.6 %; NEUT % 83.2 %; PLATELET COUNT 178 K/uL (130-400); RED BLOOD COUNT 3.96 M/uL (4.7-6.1); WHITE BLOOD COUNT 7.25 K/uL (4.8-10.8)
[2016-12-21 07:12] LABS: CALCIUM 8.7 mg/dl (8.5-10.1); CREATININE 2.5 mg/dl (0.60-1.40); POTASSIUM 4.3 mmol/L (3.5-5.1)
[2016-12-21] MEDS ORDERED: ASPIRIN 81 MG CHEW PO SCH (09:00)
[2016-12-21] MEDS: RANITIDINE HCL 150 MG TAB PO SCH ×2 (09:11→19:59)
[2016-12-21] MEDS: GUAIFENESIN 600 MG TABCR PO SCH ×2 (09:11→19:59)
[2016-12-21] MEDS: INSULIN ASPART 100 UNITS/ML 3 ML PEN SC SCH ×4 (09:15→20:42)
[2016-12-21] MEDS: INSULIN GLARGINE SOLOSTAR 100 UNITS/ML 3 ML PEN SC SCH ×2 (09:15→20:43)
--- NOTE | 2016-12-21 09:28 | Progress Note ---
Progress Note Date of Service Dec 21, 2016. (Kathleen Salguero ., TOÑA) Progress Note Pt seen and examined. Only concern today is shoulder discomfort. No GI concerns. H&H stable and trending up. GI to sign off. No GI contraindication to discharge. (Kathleen Salguero ., TOÑA) i would suggest a family discussion about a desire for endoscopic procedures ( will defer this to the hospitalist service). Please call with any questions (Kia Narvaez, DO)
--- NOTE | 2016-12-21 09:40 | Nephrology Progress Note ---
Nephrology Progress Note Date of Service: Dec 21, 2016. Subjective 81 yo male with right sided heart failure, anemia of chronic disease, wound infection on back of neck, end stage copd and johanne on ckd and urinary retention now with a mackenzie. pt with underlying dementia. pleasantly confused. Objective Date Time Temp Pulse Resp B/P Pulse Ox O2 Delivery O2 Flow Rate FiO2 12/21/16 08:02 36.6 89 20 107/72 92 Nasal Cannula 2.0 12/21/16 07:58 82 18 98 Nasal Cannula 2.0 12/21/16 04:25 Nasal Cannula 2.0 12/21/16 04:03 36.3 86 19 105/61 92 Nasal Cannula 3.0 12/21/16 02:00 87 18 98 Nasal Cannula 2.0 12/21/16 00:04 Nasal Cannula 2.0 12/20/16 23:39 36.3 82 20 111/70 92 Nasal Cannula 2.0 Humidified Oxygen 12/20/16 20:00 Nasal Cannula 2.0 12/20/16 19:37 88 12 98 Nasal Cannula 2.0 12/20/16 18:10 36.6 77 19 110/72 97 Nasal Cannula 2.0 12/20/16 15:48 36.5 89 18 114/65 90 Nasal Cannula 12/20/16 15:30 Nasal Cannula 2.0 12/20/16 14:23 81 18 98 Nasal Cannula 2.0 12/20/16 12:36 36.4 81 18 117/73 96 Nasal Cannula 2.0 12/20/16 11:30 Nasal Cannula 2.0 Physical Exam: General-aaox2, dementia Eyes-no scleral icterus ENT-mmm Neck-supple Lungs-+diffuse wheezing Heart-rrr Abdomen-bs+ s/nt/nd Extremities-mild edema Neuro-nonfocal Current Inpatient Medications Medications (Trade) Dose Ordered Sig/Claribel Route Start Time Stop Time Status Last Admin Dose Admin Acetaminophen (Tylenol Tab) 650 mg Q4H PRN PO 12/18/16 21:15 01/17/17 21:14 12/19/16 00:02 650 MG Nitroglycerin (Nitrostat Tab) 0.4 mg UD PRN SL 12/18/16 21:15 01/17/17 21:14 Glucose (Glucose 40% Gel) 15-30 GRAMS 15 GRAMS... UD PRN PO 12/18/16 21:15 01/17/17 21:14 Glucose (Glucose Chew Tab) 4-8 Tablets 4 Tabl... UD PRN PO 12/18/16 21:15 01/17/17 21:14 Dextrose (Dextrose 50% 50ML Syringe) 25-50ML OF 50% DW IV FOR... UD PRN IV 12/18/16 21:15 01/17/17 21:14 Glucagon (Glucagon Inj) 1 mg UD PRN SQ 12/18/16 21:15 01/17/17 21:14 Hydromorphone HCl (Dilaudid Inj) 0.5 mg Q3H PRN IV 12/18/16 21:15 01/01/17 21:14 Tramadol HCl (Ultram Tab) 25 mg Q6H PRN PO 12/18/16 21:15 01/17/17 21:14 12/19/16 15:41 25 MG Ondansetron HCl (Zofran Inj) 4 mg Q6H PRN IV 12/18/16 21:15 01/17/17 21:14 12/20/16 22:44 4 MG Guaifenesin (Mucinex Contr Rel Tab) 600 mg Q12H PO 12/19/16 09:00 01/18/17 08:59 12/21/16 09:11 600 MG Ranitidine HCl (zANTac TAB) 150 mg BID PO 12/19/16 09:00 01/18/17 08:59 12/21/16 09:11 150 MG Simvastatin (Zocor Tab) 20 mg HS PO 12/19/16 21:00 01/18/17 20:59 12/20/16 20:12 20 MG Trazodone HCl (Desyrel Tab) 50 mg HS PO 12/19/16 21:00 01/18/17 20:59 12/20/16 20:10 50 MG Piperacillin Sod/ Tazobactam Sod (Consult) 1 ea UD PRN N/A 12/19/16 09:00 01/18/17 08:59 Prednisone (PredniSONE TAB) 40 mg DAILY PO 12/19/16 09:00 12/24/16 08:59 12/21/16 09:11 40 MG Ipratropium [place] (Atrovent 0.02% 0.5MG/2.5ML Neb) 0.5 mg Q6R INH 12/19/16 03:00 01/18/17 02:59 12/21/16 07:58 0.5 MG Levalbuterol (Xopenex 1.25MG/ 0.5ML Neb) 1.25 mg Q6R INH 12/19/16 03:00 01/18/17 02:59 12/21/16 07:58 1.25 MG Ipratropium [place] (Atrovent 0.02% 0.5MG/2.5ML Neb) 0.5 mg Q4H PRN INH 12/18/16 21:45 01/17/17 21:44 Levalbuterol 1.25 mg 1.25 mg Q4H PRN INH 12/18/16 21:45 01/17/17 21:44 Piperacillin Sod/ Tazobactam Sod/ Dextrose (Zosyn Iv/D5 100ml) 115 ml @ 28.75 mls/ hr Q8H IV 12/19/16 00:00 12/26/16 00:00 12/21/16 09:18 28.75 MLS/HR Insulin Glargine (Lantus Solostar Pen) 10 unit BID SC 12/19/16 09:00 01/18/17 08:59 12/21/16 09:15 10 UNIT Insulin Aspart (novoLOG ASPART) SLIDING SCALE If C... ACHS SC 12/19/16 16:15 01/18/17 00:00 12/21/16 09:15 2 UNITS Azithromycin (Zithromax Tab) 500 mg HS PO 12/19/16 20:00 12/26/16 19:59 12/20/16 20:12 500 MG Senna/Docusate Sodium 2 tab 2 tab HS PO 12/19/16 21:00 01/18/17 20:59 12/20/16 20:11 2 TAB Vancomycin HCl/ Sodium Chloride (Vancomycin Inj/ Nss 500ml) 528 ml @ 200 mls/hr Q30H IV 12/20/16 16:00 12/26/16 19:29 Future Hold 12/20/16 15:47 200 MLS/HR Vancomycin HCl (Consult) 1 ea UD PRN N/A 12/19/16 20:15 12/29/16 20:14 Albumin Human (Albumin 25%) 12.5 gm BID IV 12/20/16 10:30 12/23/16 10:29 12/20/16 20:29 12.5 GM Aspirin (Aspirin Chew) 81 mg DAILY PO 12/21/16 09:00 01/20/17 08:59 12/21/16 09:11 81 MG Last 24 Hours Test 12/20/16 11:13 12/20/16 13:40 12/20/16 16:23 12/20/16 20:24 Bedside Glucose 139 mg/dl 185 mg/dl 183 mg/dl Random Vancomycin Level 16.4 mcg/ml Test 12/21/16 05:41 12/21/16 06:44 White Blood Count 7.25 K/uL Red Blood Count 3.96 M/uL Hemoglobin 10.5 g/dL Hematocrit 32.3 % Mean Corpuscular Volume 81.6 fL Mean Corpuscular Hemoglobin 26.5 pg Mean Corpuscular Hemoglobin Concent 32.5 g/dl Platelet Count 178 K/uL Mean Platelet Volume 9.8 fL Neutrophils (%) (Auto) 83.2 % Lymphocytes (%) (Auto) 7.9 % Monocytes (%) (Auto) 8.6 % Eosinophils (%) (Auto) 0.0 % Basophils (%) (Auto) 0.0 % Neutrophils # (Auto) 6.04 K/uL Lymphocytes # (Auto) 0.57 K/uL Monocytes # (Auto) 0.62 K/uL Eosinophils # (Auto) 0.00 K/uL Basophils # (Auto) 0.00 K/uL RDW Standard Deviation 49.7 fL RDW Coefficient of Variation 16.6 % Immature Granulocyte % (Auto) 0.3 % Immature Granulocyte # (Auto) 0.02 K/uL Sodium Level 136 mmol/L Potassium Level 4.3 mmol/L Chloride Level 97 mmol/L Carbon Dioxide Level 29 mmol/L Anion Gap 10.0 mmol/L Blood Urea Nitrogen 50 mg/dl Creatinine 2.50 mg/dl Est Creatinine Clear Calc Drug Dose 27.1 ml/min Estimated GFR () 26.5 Estimated GFR (Non- 22.9 BUN/Creatinine Ratio 20.0 Random Glucose 125 mg/dl Calcium Level 8.7 mg/dl Bedside Glucose 135 mg/dl Assessment & Plan johanne/xca-mkw-vjzvlwsq-creatinine worsened from 2.3 to 2.6 and now 2.5. no indication for dialysis at this time. edema is much improved through leg elevation. hesitant to give iv fluids with his underlying copd and diffuse wheezing. for now, continue albumin to maximize intravascular volume. would recommend follow up with nephrology as an outpt. ok with current creatinine with repeat labs as outpt once medically cleared. : pt with urinary retention and now requiring a mackenzie catheter. leave mackenzie in for now and would recommend urological evaluation.
[2016-12-21] MEDS: ALBUMIN HUMAN 25% 12.5 GM/50 ML VIAL IV SCH ×2 (10:12→22:30)
--- NOTE | 2016-12-21 10:32 | Pulmonology Progress Note ---
Pulmonary Progress Note Date of Service Dec 21, 2016. Attending Dr. Hooker Subjective Continue cough worse in supine position productive mucous - unknown color / consistency. Denies increased dyspnea or chest pain. Primary concern is lunch . Objective 81-yo male admitted through [facility] ER 12/18/16 with dyspnea, cough, hypoxia and peripheral edema. History notable for odontoid fracture - resident of [facility]. CXR: described cardiomegaly and focal airspace opacities in the lung bases and RUL. CT A/P: bilateral pleural effusion with bibasilar atelectasis. ABG 12/18: 7.44/49/76-4LPM/33. He reports h/o COPD stating he has seen pulmonary in the past but is unsure of the details. 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 This visit , he is treated with antibiotic (vanco, pip-tazo, azithro), steroid, and bronchodilators. Echocardiogram 12/19: EF 40-45%, moderate dilation and function reduction of the RV, dilated IVC, mild/moderate MR/TR, moderate . Neck wound culture: + MRSA. His course is complicated by ARLEEN on CKD IV for which nephrology was consulted. PMHx includes: COPD on chronic O2: 2LPM, h/o recent odontoid fracture 2/2 fall, diastolic dysfunction (eF 54%), moderate aortic stenosis, dementia, chronic anemia, h/o TIA, IDDM II, CKD, atrial fibrillation on AC, DLD, HTN. He is a former smoker - 25-pack year, quit 1970s. . Today: - 92-98%: 2LPM - Afebrile, HD stable - WBC: 7.25, Hgb/Hct/Plts: 10.5/32.3/178 - CO2: 29 Physical Exam: Constitutional: Frail elderly male sitting in chair at bedside - head and body covered with blanket. No acute distress. Head: + facial symmetry Eyes: EOMi, PERRLA, no conjunctival injection Mouth: Dry mucous membranes No erythema, exudate, or post nasal gtt Neck: Trachea midline. No adenopathy or masses Respiratory: Non-labored respirations. Diminished air movement throughout. Extended spiratory phase with scant wheeze. No rales or rhonchi Cardiovascular: Irregularly irregular. Soft systolic murmur I/ +2 radial pulses. <1s capillary refill. MSK/Extremities: Moving and developed symmetrically. No calf tenderness. Neurologic: Alert. Able to follow complex commands Assessment & Plan 81-yo male with multiple medical comorbidities admitted with COPD exacerbation, h/o odontoid fx with incision + MRSA and ARLEEN/CKD. Clinical h/o COPD with exacerbation: 1. Continue scheduled nebulized bronchodilators as prescribed 2. Continue 40mg prednisone and taper to 30mg 3/5 as able 3. CXR in the AM - order placed Patient reviewed and plan agreed upon. Data Medications: Current Inpatient Medications Medications (Trade) Dose Ordered Sig/Claribel Route Start Time Stop Time Status Last Admin Dose Admin Acetaminophen (Tylenol Tab) 650 mg Q4H PRN PO 12/18/16 21:15 01/17/17 21:14 12/19/16 00:02 650 MG Nitroglycerin (Nitrostat Tab) 0.4 mg UD PRN SL 12/18/16 21:15 01/17/17 21:14 Glucose (Glucose 40% Gel) 15-30 GRAMS 15 GRAMS... UD PRN PO 12/18/16 21:15 01/17/17 21:14 Glucose (Glucose Chew Tab) 4-8 Tablets 4 Tabl... UD PRN PO 12/18/16 21:15 01/17/17 21:14 Dextrose (Dextrose 50% 50ML Syringe) 25-50ML OF 50% DW IV FOR... UD PRN IV 12/18/16 21:15 01/17/17 21:14 Glucagon (Glucagon Inj) 1 mg UD PRN SQ 12/18/16 21:15 01/17/17 21:14 Hydromorphone HCl (Dilaudid Inj) 0.5 mg Q3H PRN IV 12/18/16 21:15 01/01/17 21:14 Tramadol HCl (Ultram Tab) 25 mg Q6H PRN PO 12/18/16 21:15 01/17/17 21:14 12/19/16 15:41 25 MG Ondansetron HCl (Zofran Inj) 4 mg Q6H PRN IV 12/18/16 21:15 01/17/17 21:14 12/20/16 22:44 4 MG Guaifenesin (Mucinex Contr Rel Tab) 600 mg Q12H PO 12/19/16 09:00 01/18/17 08:59 12/21/16 09:11 600 MG Ranitidine HCl (zANTac TAB) 150 mg BID PO 12/19/16 09:00 01/18/17 08:59 12/21/16 09:11 150 MG Simvastatin (Zocor Tab) 20 mg HS PO 12/19/16 21:00 01/18/17 20:59 12/20/16 20:12 20 MG Trazodone HCl (Desyrel Tab) 50 mg HS PO 12/19/16 21:00 01/18/17 20:59 12/20/16 20:10 50 MG Piperacillin Sod/ Tazobactam Sod (Consult) 1 ea UD PRN N/A 12/19/16 09:00 01/18/17 08:59 Prednisone (PredniSONE TAB) 40 mg DAILY PO 12/19/16 09:00 12/24/16 08:59 12/21/16 09:11 40 MG Ipratropium [place] (Atrovent 0.02% 0.5MG/2.5ML Neb) 0.5 mg Q6R INH 12/19/16 03:00 01/18/17 02:59 12/21/16 07:58 0.5 MG Levalbuterol (Xopenex 1.25MG/ 0.5ML Neb) 1.25 mg Q6R INH 12/19/16 03:00 01/18/17 02:59 12/21/16 07:58 1.25 MG Ipratropium [place] (Atrovent 0.02% 0.5MG/2.5ML Neb) 0.5 mg Q4H PRN INH 12/18/16 21:45 01/17/17 21:44 Levalbuterol 1.25 mg 1.25 mg Q4H PRN INH 12/18/16 21:45 01/17/17 21:44 Piperacillin Sod/ Tazobactam Sod/ Dextrose (Zosyn Iv/D5 100ml) 115 ml @ 28.75 mls/ hr Q8H IV 12/19/16 00:00 12/26/16 00:00 12/21/16 09:18 28.75 MLS/HR Insulin Glargine (Lantus Solostar Pen) 10 unit BID SC 12/19/16 09:00 01/18/17 08:59 12/21/16 09:15 10 UNIT Insulin Aspart (novoLOG ASPART) SLIDING SCALE If C... ACHS SC 12/19/16 16:15 01/18/17 00:00 12/21/16 09:15 2 UNITS Azithromycin (Zithromax Tab) 500 mg HS PO 12/19/16 20:00 12/26/16 19:59 12/20/16 20:12 500 MG Senna/Docusate Sodium 2 tab 2 tab HS PO 12/19/16 21:00 01/18/17 20:59 12/20/16 20:11 2 TAB Vancomycin HCl/ Sodium Chloride (Vancomycin Inj/ Nss 500ml) 528 ml @ 200 mls/hr Q30H IV 12/20/16 16:00 12/26/16 19:29 Future Hold 12/20/16 15:47 200 MLS/HR Vancomycin HCl (Consult) 1 ea UD PRN N/A 12/19/16 20:15 12/29/16 20:14 Albumin Human (Albumin 25%) 12.5 gm BID IV 12/20/16 10:30 12/23/16 10:29 12/21/16 10:12 12.5 GM Aspirin (Aspirin Chew) 81 mg DAILY PO 12/21/16 09:00 01/20/17 08:59 12/21/16 09:11 81 MG I & O: 24-Hour Column 12/21/16 07:59 Intake Total 1340 ml Output Total 1750 ml Balance -410 ml Vital Signs: Date Time Temp Pulse Resp B/P Pulse Ox O2 Delivery O2 Flow Rate FiO2 12/21/16 08:02 36.6 89 20 107/72 92 Nasal Cannula 2.0 12/21/16 07:58 82 18 98 Nasal Cannula 2.0 12/21/16 04:25 Nasal Cannula 2.0 12/21/16 04:03 36.3 86 19 105/61 92 Nasal Cannula 3.0 12/21/16 02:00 87 18 98 Nasal Cannula 2.0 12/21/16 00:04 Nasal Cannula 2.0 12/20/16 23:39 36.3 82 20 111/70 92 Nasal Cannula 2.0 Humidified Oxygen 12/20/16 20:00 Nasal Cannula 2.0 12/20/16 19:37 88 12 98 Nasal Cannula 2.0 12/20/16 18:10 36.6 77 19 110/72 97 Nasal Cannula 2.0 12/20/16 15:48 36.5 89 18 114/65 90 Nasal Cannula 12/20/16 15:30 Nasal Cannula 2.0 12/20/16 14:23 81 18 98 Nasal Cannula 2.0 12/20/16 12:36 36.4 81 18 117/73 96 Nasal Cannula 2.0 12/20/16 11:30 Nasal Cannula 2.0 Laboratory Results: Last 24 Hours Test 12/20/16 11:13 12/20/16 13:40 12/20/16 16:23 12/20/16 20:24 Bedside Glucose 139 mg/dl 185 mg/dl 183 mg/dl Random Vancomycin Level 16.4 mcg/ml Test 12/21/16 05:41 12/21/16 06:44 White Blood Count 7.25 K/uL Red Blood Count 3.96 M/uL Hemoglobin 10.5 g/dL Hematocrit 32.3 % Mean Corpuscular Volume 81.6 fL Mean Corpuscular Hemoglobin 26.5 pg Mean Corpuscular Hemoglobin Concent 32.5 g/dl Platelet Count 178 K/uL Mean Platelet Volume 9.8 fL Neutrophils (%) (Auto) 83.2 % Lymphocytes (%) (Auto) 7.9 % Monocytes (%) (Auto) 8.6 % Eosinophils (%) (Auto) 0.0 % Basophils (%) (Auto) 0.0 % Neutrophils # (Auto) 6.04 K/uL Lymphocytes # (Auto) 0.57 K/uL Monocytes # (Auto) 0.62 K/uL Eosinophils # (Auto) 0.00 K/uL Basophils # (Auto) 0.00 K/uL RDW Standard Deviation 49.7 fL RDW Coefficient of Variation 16.6 % Immature Granulocyte % (Auto) 0.3 % Immature Granulocyte # (Auto) 0.02 K/uL Sodium Level 136 mmol/L Potassium Level 4.3 mmol/L Chloride Level 97 mmol/L Carbon Dioxide Level 29 mmol/L Anion Gap 10.0 mmol/L Blood Urea Nitrogen 50 mg/dl Creatinine 2.50 mg/dl Est Creatinine Clear Calc Drug Dose 27.1 ml/min Estimated GFR () 26.5 Estimated GFR (Non- 22.9 BUN/Creatinine Ratio 20.0 Random Glucose 125 mg/dl Calcium Level 8.7 mg/dl Bedside Glucose 135 mg/dl
--- NOTE | 2016-12-21 10:43 | Cardiology Follow-Up ---
Subjective General Date of Service: Dec 21, 2016. Chief Complaint: Shortness of breath Pt evaluation today including: conversation w/ patient, physical exam, chart review, lab review, review of studies, review of inpatient medication list History of Present Illness Patient seen and examined. Laying almost flat. Feels cold. No documented fevers. Overall, feels better since admission, per patient report (not the best historian) Denies chest pain. Denies palpitations. Denies orthopnea or PND. Peripheral edema improved Broussard catheter in place. Telemetry: Rate controlled atrial fibrillation. Occasional PVC. Four beat run of VPC's at 16:39:31, versus atrial fibrillation with aberrant conduction Allergies Coded Allergies: No Known Allergies (Unverified , 09/25/16) Social History Smoking Status: Former Smoker Hx Tobacco Use In Past Year?: No Hx Alcohol Use - Type And Amou: No Hx Substance Use - Type And Am: No Problem List Medical Problems: (1) Cellulitis of right leg Status: Acute (2) Fall Status: Acute (3) Odontoid fracture Status: Acute (4) Pneumonia Status: Acute Review of Systems Respiratory: + cough, + shortness of breath, + wheezing, No dyspnea at rest Cardiac: + edema, No chest pain, No orthopnea, No palpitations Physical Exam Vital Signs Last Vital Signs Documentation Date Time Temp Pulse Resp B/P Pulse Ox O2 Delivery O2 Flow Rate FiO2 12/21/16 08:02 36.6 89 20 107/72 92 Nasal Cannula 2.0 Physical Exam Constitutional: Level of Distress: NAD, chronically ill Psychiatric: Memory: remote memory normal, recent memory abnormal Head: normocephalic ENMT: pertinent finding (Mucous membranes are dry) Neck: pertinent finding (Neck veins are flat) Lungs: Respiratory effort: dyspneic Auscultation: deminished air movement, decreased breath sounds, expiratory wheezing Cardiovascular: Heart Auscultation: no rubs, II/ KELSEY, irregular rate rhythm Abdomen: Inspection & Palpation: soft, non-distended, no tenderness, guarding & rebound Extremities: no cyanosis, no ulcers, pertinent finding (lymphedematous changes. No significant edema) Neurologic: Cranial Nerves: grossly intact Assessment and Plan Assessment and Plan Admission with multifactorial respiratory insufficiency Severe oxygen dependent chronic obstructive pulmonary disease. Probable HCAP. 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 Echo with RV dysfunction and evidence of pulmonary hypertension. No examination findings to suggest acute decompensated heart failure Moderate aortic stenosis. Peripheral edema on presentation likely secondary to hypoalbuminemia, lymphedematous changes Chronic atrial fibrillation. Heart rates are controlled without AV zenobia janel therapy CHADS2 Score of 6/6 Anticoagulation (and ASA) held on admission secondary to anemia. History of high grade AV block when hospitalized at [facility], resolving with discontinuation of digoxin Urinary retention +MRSA from posterior cervical surgical incision. RECOMMENDATIONS: Hold ASA Heparin trial, no bolus. Follow H&H Continue to hold furosemide. Avoid AV zenobia blockers. No overt indication for permanent pacemaker implantation at this point. Medical management of the aortic stenosis. Cardiology Attending Physician: Patient seen and examined at the bedside. Creatinine trending downward. Denies CP, orthopnea, palpitations. LE edema improved. PE: VSS, Gen: chronically ill. NAD, awake and alert. Heart: Irregular, normal S1 and S2. 1/6 KELSEY. Lungs: +exp wheeze. Ext: mild pedal edema. A/P: Agree with above PA-C history, physical exam, assessment and plan. Trial of IV heparin ordered. Will follow. Rasheed Fuentes DO, [facility] Laboratory Results Last 24 Hours Test 12/20/16 11:13 12/20/16 13:40 12/20/16 16:23 12/20/16 20:24 Bedside Glucose 139 mg/dl 185 mg/dl 183 mg/dl Random Vancomycin Level 16.4 mcg/ml Test 12/21/16 05:41 12/21/16 06:44 White Blood Count 7.25 K/uL Red Blood Count 3.96 M/uL Hemoglobin 10.5 g/dL Hematocrit 32.3 % Mean Corpuscular Volume 81.6 fL Mean Corpuscular Hemoglobin 26.5 pg Mean Corpuscular Hemoglobin Concent 32.5 g/dl Platelet Count 178 K/uL Mean Platelet Volume 9.8 fL Neutrophils (%) (Auto) 83.2 % Lymphocytes (%) (Auto) 7.9 % Monocytes (%) (Auto) 8.6 % Eosinophils (%) (Auto) 0.0 % Basophils (%) (Auto) 0.0 % Neutrophils # (Auto) 6.04 K/uL Lymphocytes # (Auto) 0.57 K/uL Monocytes # (Auto) 0.62 K/uL Eosinophils # (Auto) 0.00 K/uL Basophils # (Auto) 0.00 K/uL RDW Standard Deviation 49.7 fL RDW Coefficient of Variation 16.6 % Immature Granulocyte % (Auto) 0.3 % Immature Granulocyte # (Auto) 0.02 K/uL Sodium Level 136 mmol/L Potassium Level 4.3 mmol/L Chloride Level 97 mmol/L Carbon Dioxide Level 29 mmol/L Anion Gap 10.0 mmol/L Blood Urea Nitrogen 50 mg/dl Creatinine 2.50 mg/dl Est Creatinine Clear Calc Drug Dose 27.1 ml/min Estimated GFR () 26.5 Estimated GFR (Non- 22.9 BUN/Creatinine Ratio 20.0 Random Glucose 125 mg/dl Calcium Level 8.7 mg/dl Bedside Glucose 135 mg/dl
[2016-12-21] MEDS ORDERED: HEPARIN IV LOW DOSE NO BOLUS SCH (10:50)
--- NOTE | 2016-12-21 11:41 | DIAGNOSTIC IMAGING REPORT ---
CHEST 2 VIEWS ROUTINE CLINICAL HISTORY: f/u lung infiltrates pneumonia COMPARISON STUDY: 12/18/2016 FINDINGS: Moderate stable cardiomegaly. Pulmonary vascular prominence slightly improved. Slight improvement peripheral right midlung infiltrate. Unchanging parenchymal infiltrate left base. IMPRESSION: 1. Mildly improved exam. 2. Improved components of congestive failure. 3. Improved right midlung infiltrate. 4. Persistent infiltrate left base Electronically signed by: Hermilo Sam M.D. 12/21/2016 11:40 AM Dictated Date/Time: 12/21/2016 11:39 AM
[2016-12-21 12:01] LABS: INR 1.3 (0.9-1.1); PARTIAL THROMBOPLASTIN RATIO 1.3; PROTHROMBIN TIME (PATIENT) 14.2 SECONDS (9.0-12.0)
[2016-12-21] MEDS: HEPARIN 25,000 UNIT/500ML D5W 500 ML IV PRN ×2 (12:05→18:41)
--- NOTE | 2016-12-21 13:06 | DIAGNOSTIC IMAGING REPORT ---
VIDEO SWALLOW HISTORY: Respiratory failure. assess pharyngeal swallow and r/o aspiration TECHNIQUE: Video fluoroscopic evaluation of swallowing was performed in the AP and lateral projections by the speech pathology staff. The patient is fed nectar-thick and thin liquid barium, a barium coated wafer, and barium pudding. FLUOROSCOPY TIME: 2 minutes. A cine loop was some of. COMPARISON STUDY: None. FINDINGS: There is normal hyoid excursion and epiglottic deflection. Multiple episodes of penetration with the thin liquid barium without aspiration. There is posterior fusion at C1-C2. Moderate esophageal dysmotility. IMPRESSION: 1. No aspiration identified. Moderate esophageal dysmotility. 2. Please see the speech pathologist report for detailed findings and recommendations. Electronically signed by: Cam Sánchez M.D. 12/21/2016 1:05 PM Dictated Date/Time: 12/21/2016 1:03 PM
--- NOTE | 2016-12-21 13:11 | ORTHOPEDIC CONSULTATION ---
DATE OF CONSULTATION: 12/21/2016 CHIEF COMPLAINT: I have been asked to see the patient regarding his posterior cervical incision. HISTORY OF PRESENT ILLNESS: The patient is an 81-year-old admitted for multiple medical issues but also under status post posterior cervical fusion for odontoid fracture. This was done at [facility]. The patient does not recall when the procedure was performed, but based on imaging studies appears to be approximately 6-8 weeks ago. He denies any arm weakness, numbness or tingling. Denies any significant cervicalgia. PHYSICAL EXAMINATION: He does have a posterior midline incision. It is not erythematous. There is some evidence of modest dehiscence with granular healing. No gross drainage. Palpation does not reproduce pain or drainage. ASSESSMENT: Status post posterior cervical fusion with evidence of wound dehiscence and delayed healing. PLAN: At this time, I would like to obtain a CAT scan of the cervical spine to rule out any subcutaneous fluid collections assess the fusion. It is my understanding that wound care nurse will be seeing the patient. This makes this is completely reasonable.
--- NOTE | 2016-12-21 14:53 | DIAGNOSTIC IMAGING REPORT ---
CERVICAL SPINE CT CT DOSE: 320.52 mGy.cm HISTORY: Postop cervical surgery. Neck pain. TECHNIQUE: Multiaxial CT images of the cervical spine were performed and reformatted in the sagittal and coronal plane without the use of contrast. COMPARISON: Cervical spine CT 09/25/2016. FINDINGS: There is again noted a fracture through the base of the odontoid consistent with a type II odontoid fracture. No significant healing at this time. Slight posterior angulation of the odontoid without significant displacement compared to the prior study. This results in up to 3 mm of posterior displacement of the C1 lateral masses in relation to C2. However, this is similar to the prior study. There is associated mild central canal narrowing at the C1 level due to the mild posterior angulation. There is been interval posterior fusion at C1-C2 with pedicle screws and rods. The hardware appears intact. There is bone graft material at the pedicle heads. No additional fractures identified within the cervical spine. There is moderate to space narrowing at C3-C4 and C6-C7. There is severe disc space narrowing at C4-C5 and C5-C6. Mild to moderate central canal narrowing at C4-C5 remains unchanged. Prevertebral soft tissues are intact. Interstitial thickening at the lung apices which may be chronic. Prominent right peritracheal lymph nodes remain unchanged. Midline incision within the upper posterior cervical region with trace fluid. IMPRESSION: 1. Interval posterior fusion at C1-C2 for the odontoid fracture. The hardware appears intact. 2. No significant healing within the type II odontoid fracture. This demonstrates mild posterior angulation which is new from the prior study. However, there is no significant displacement. The posterior angulation at the C1 level results in mild central canal narrowing. 3. No additional fractures identified. 4. Degenerative changes within the cervical spine as described above. Electronically signed by: Cam Sánchez M.D. 12/21/2016 2:52 PM Dictated Date/Time: 12/21/2016 2:38 PM
--- NOTE | 2016-12-21 17:09 | Progress Note ---
Internal Med Progress Note Date of Service: Dec 21, 2016. Provider Documentation: SUBJECTIVE: Says he is fine denies sob has cough afebrile want to eat no complaints OBJECTIVE: Vital Signs-as noted below Exam: General-alert and awake. Not in distress ENT-normal hearing Neck-no neck masses Lungs-cta b/l b/l wheezing heard Heart-s1 and s2 heard regular rate and rhythm no murmurs' Abdomen-soft bowel sounds present non tender no distension Extremities-pedal edema present no erythema Neuro-alert and awake moves extremities Lab data as noted below. ASSESSMENT & PLAN: 1. Acute on chronic hypoxemic respiratory failure multifactorial : mostly from [facility] pneumonia and copd exacerbation sputum growing mrsa mrsa swab positive iv abx Zosyn, vanco and po azithromycin on po steroids and nebs appreciate pulmonary inputs slow improvement continue same close monitor Chronic diastolic chf moderate holding diuretics secondary to above and ARF will monitor for volume overload. ARF from above not getting fluids secondary to question of chf cr 2.5 today nephrology started on albumin close monitor of labs AF, rate controlled had high grade AV bolck at [facility] and reverted after stopping digoxin not on anticoagulation secondary to question of occult GI bleed and anemia workup. Cardiology starting on iv heparin- close monitor for any bleeding. DM2, insulin requiring on Lantus and iss will monitor whole on steroids. Neck cellulitis? recent cervical surgery ans site grew MRSA on iv abx Ortho consulted and appreciate inputs will monitor Biliary colic symptoms asymptomatic now. . Occult GI bleed. Hemoglobin drop over the last few months Hx diverticulosis, colonic polyps as per records. GI plans to workup if family willing once respiratory issues resolves. hb ~10 dementia as per records DISPOSITION monitor in tele pt/ot when stable social service for d/c planning Vital Signs: Date Time Temp Pulse Resp B/P Pulse Ox O2 Delivery O2 Flow Rate FiO2 12/21/16 15:57 36.4 85 20 108/69 94 Nasal Cannula 2.0 12/21/16 14:28 78 16 96 Nasal Cannula 2.0 12/21/16 12:00 Nasal Cannula 2.0 12/21/16 11:44 36.7 88 20 107/73 93 Nasal Cannula 2.0 12/21/16 08:02 36.6 89 20 107/72 92 Nasal Cannula 2.0 12/21/16 08:00 Nasal Cannula 2.0 12/21/16 07:58 82 18 98 Nasal Cannula 2.0 12/21/16 04:25 Nasal Cannula 2.0 12/21/16 04:03 36.3 86 19 105/61 92 Nasal Cannula 3.0 12/21/16 02:00 87 18 98 Nasal Cannula 2.0 12/21/16 00:04 Nasal Cannula 2.0 12/20/16 23:39 36.3 82 20 111/70 92 Nasal Cannula 2.0 Humidified Oxygen 12/20/16 20:00 Nasal Cannula 2.0 12/20/16 19:37 88 12 98 Nasal Cannula 2.0 12/20/16 18:10 36.6 77 19 110/72 97 Nasal Cannula 2.0 Lab Results: Results Past 24 Hours Test 12/20/16 20:24 12/21/16 05:41 12/21/16 06:44 12/21/16 11:34 Range/Units Bedside Glucose 183 135 144 70-99 mg/dl White Blood Count 7.25 4.8-10.8 K/uL Red Blood Count 3.96 4.7-6.1 M/uL Hemoglobin 10.5 14.0-18.0 g/dL Hematocrit 32.3 42-52 % Mean Corpuscular Volume 81.6 80-100 fL Mean Corpuscular Hemoglobin 26.5 25-34 pg Mean Corpuscular Hemoglobin Concent 32.5 32-36 g/dl Platelet Count 178 130-400 K/uL Mean Platelet Volume 9.8 7.4-10.4 fL Neutrophils (%) (Auto) 83.2 % Lymphocytes (%) (Auto) 7.9 % Monocytes (%) (Auto) 8.6 % Eosinophils (%) (Auto) 0.0 % Basophils (%) (Auto) 0.0 % Neutrophils # (Auto) 6.04 1.4-6.5 K/uL Lymphocytes # (Auto) 0.57 1.2-3.4 K/uL Monocytes # (Auto) 0.62 0.11-0.59 K/uL Eosinophils # (Auto) 0.00 0-0.5 K/uL Basophils # (Auto) 0.00 0-0.2 K/uL RDW Standard Deviation 49.7 36.4-46.3 fL RDW Coefficient of Variation 16.6 11.5-14.5 % Immature Granulocyte % (Auto) 0.3 % Immature Granulocyte # (Auto) 0.02 0.00-0.02 K/uL Sodium Level 136 136-145 mmol/L Potassium Level 4.3 3.5-5.1 mmol/L Chloride Level 97 98-107 mmol/L Carbon Dioxide Level 29 21-32 mmol/L Anion Gap 10.0 3-11 mmol/L Blood Urea Nitrogen 50 7-18 mg/dl Creatinine 2.50 0.60-1.40 mg/dl Est Creatinine Clear Calc Drug Dose 27.1 ml/min Estimated GFR () 26.5 Estimated GFR (Non- 22.9 BUN/Creatinine Ratio 20.0 10-20 Random Glucose 125 70-99 mg/dl Calcium Level 8.7 8.5-10.1 mg/dl Test 12/21/16 11:35 Range/Units Prothrombin Time 14.2 9.0-12.0 SECONDS Prothromb Time International Ratio 1.3 0.9-1.1 Activated Partial Thromboplast Time 33.0 21.0-31.0 SECONDS Partial Thromboplastin Ratio 1.3
[2016-12-21 18:29] LABS: PARTIAL THROMBOPLASTIN RATIO 1.7
[2016-12-21] MEDS ORDERED: HEPARIN IV BOLUS 3,000 UNIT in SYRINGE 0 ML IV ONE (19:00)
[2016-12-21] MEDS: SIMVASTATIN 20 MG TAB PO SCH (19:58)
[2016-12-21] MEDS: DOCUSATE SODIUM/SENNA 50/8.6MG TAB PO SCH (19:58)
[2016-12-21] MEDS: AZITHROMYCIN 250 MG TAB PO SCH (19:59)
[2016-12-21] MEDS ORDERED: VANCOMYCIN TROUGH SCH (21:30)
[2016-12-21] MEDS: TRAZODONE HCL 50 MG TAB PO SCH (22:18)
--- NOTE | 2016-12-21 23:22 | DIAGNOSTIC IMAGING REPORT ---
CHEST 2 VIEWS ROUTINE CLINICAL HISTORY: Cough. COMPARISON STUDY: Chest radiograph December 21, 2016 at 10:50 AM. FINDINGS: There is no pneumothorax. There are small bilateral pleural effusions, left larger than right. These are similar to prior exam. Bilateral airspace opacities and interstitial thickening is similar to exam of this morning. There is no lobar consolidation. Cardiomegaly is unchanged. IMPRESSION: 1. No significant change in interstitial thickening and bilateral opacities which could reflect pneumonia or pulmonary edema. 2. Small bilateral pleural effusions. Electronically signed by: Cuco Simmons M.D. 12/21/2016 11:20 PM Dictated Date/Time: 12/21/2016 11:19 PM
[2016-12-22] VITALS (13 sets, daily range): BP systolic 104–130; BP diastolic 70–75; PULSE 77–93; TEMP 36.2–36.9; O2SAT 92–100
[2016-12-22] MEDS: IPRATROPIUM BROMIDE NEB SOLN 0.02% 2.5 ML VIAL INH SCH ×4 (01:45→19:52)
[2016-12-22] MEDS: LEVALBUTEROL 1.25MG/0.5ML NEB INH SCH ×4 (01:45→19:52)
[2016-12-22 02:15] LABS: PARTIAL THROMBOPLASTIN RATIO 2.4
[2016-12-22 04:48] LABS: COMPLETE YES; HEMATOCRIT 33.1 % (42-52); IG% 0.4 %; LYMPH % 7.7 %; LYMPH ABS # 0.62 K/uL (1.2-3.4); MEAN CELL VOLUME 83.4 fL (80-100); MEAN CORPUSCULAR HEMOGLOBIN 27.2 pg (25-34); MEAN CORPUSCULAR HGB CONC 32.6 g/dl (32-36); MEAN PLATELET VOLUME 10.2 fL (7.4-10.4); MONO % 6.5 %; NEUT % 85.4 %; PLATELET COUNT 187 K/uL (130-400); RED BLOOD COUNT 3.97 M/uL (4.7-6.1); WHITE BLOOD COUNT 8.03 K/uL (4.8-10.8)
[2016-12-22 05:07] LABS: BUN/CREATININE RATIO 22.5 (10-20); CALCIUM 8.7 mg/dl (8.5-10.1); CREATININE 2.6 mg/dl (0.60-1.40); PARTIAL THROMBOPLASTIN RATIO 2.3; POTASSIUM 4.2 mmol/L (3.5-5.1)
[2016-12-22] MEDS: INSULIN ASPART 100 UNITS/ML 3 ML PEN SC SCH ×4 (07:00→22:35)
--- NOTE | 2016-12-22 08:46 | PROGRESS NOTE ---
DATE: 12/22/2016 I did obtain a CAT scan yesterday on the cervical spine. It demonstrated instrumentation in place. I do not appreciate any soft tissue swelling or fluid collections. I strongly suspect his skin will heal nicely with appropriate wound care. No other further issues at this time.
[2016-12-22] MEDS: INSULIN GLARGINE SOLOSTAR 100 UNITS/ML 3 ML PEN SC SCH (09:00)
--- NOTE | 2016-12-22 10:30 | Clinical Documentation Query ---
CLINICAL DOCUMENTATION QUERY 81 year old male who presents with HCAP and MRSA wound infection. Most recent progress note state HCAP, sputum growing MRSA, MRSA swab +. 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 In your clinical opinion is this patient being managed for: ( + ) Suspected MRSA pneumonia treated with IV Zosyn, IV Vanco, and PO Azithromycin. ( ) Other explanation of clinical findings (Please Explain) ( ) Unable to determine (Please Define) ( ) Need to Discuss ( ) Not Agree The medical record reflects the following clinical findings, treatment, and risk factors. Clinical Indicators: As above. Treatment: IV Zosyn, IV Vanco, and PO Azithromycin. Risk Factors: Age, snf residence, recent hospital stay, and MRSA wound infection. Please clarify and document your clinical opinion in the progress notes and discharge summary. Terms such as "probable", "suspected", "likely", "questionable", "possible", or "still to be ruled out" are acceptable. IF IN AGREEMENT, YOU MUST DOCUMENT ABOVE DIAGNOSTIC STATEMENT IN DAILY PROGRESS NOTES AND DISCHARGE SUMMARY. This document is not part of the patient's record. Thank You, Prasanth Donohue, RN [phone]
[2016-12-22] MEDS: GUAIFENESIN 600 MG TABCR PO SCH ×2 (10:41→21:00)
[2016-12-22] MEDS: RANITIDINE HCL 150 MG TAB PO SCH (10:41)
[2016-12-22] MEDS: ALBUMIN HUMAN 25% 12.5 GM/50 ML VIAL IV SCH (10:44)
[2016-12-22] MEDS: PIPERACILL/TAZOBAC IV 3.375 GM in DEXTROSE 5% 100ML IV SCH ×2 (10:45→16:27)
--- NOTE | 2016-12-22 10:46 | Cardiology Follow-Up ---
Subjective General Date of Service: Dec 22, 2016. Chief Complaint: Shortness of breath Pt evaluation today including: conversation w/ patient, physical exam, chart review, lab review, review of studies, review of inpatient medication list History of Present Illness Patient seen and examined. No complaints. Denies chest pain. Stable dyspnea. Denies palpitations. No orthopnea or PND. Peripheral edema improved Broussard catheter in place. Telemetry: Rate controlled atrial fibrillation. Occasional PVC in singles and couplets. No significant bradycardia or pauses. H&H stable. Platelet Count 187K. Allergies Coded Allergies: No Known Allergies (Unverified , 09/25/16) Social History Smoking Status: Former Smoker Hx Tobacco Use In Past Year?: No Hx Alcohol Use - Type And Amou: No Hx Substance Use - Type And Am: No Problem List Medical Problems: (1) Cellulitis of right leg Status: Acute (2) Fall Status: Acute (3) Odontoid fracture Status: Acute (4) Pneumonia Status: Acute Review of Systems Respiratory: + dyspnea on exertion, + shortness of breath, + wheezing, No cough , No dyspnea at rest, No hemoptysis Cardiac: + edema, No PND, No chest pain, No claudication, No orthopnea, No palpitations Physical Exam Vital Signs Last Vital Signs Documentation Date Time Temp Pulse Resp B/P Pulse Ox O2 Delivery O2 Flow Rate FiO2 12/22/16 08:12 36.4 83 16 126/74 93 12/22/16 07:03 Nasal Cannula 2.0 Physical Exam Constitutional: Level of Distress: NAD, chronically ill Psychiatric: Memory: remote memory normal, recent memory abnormal Head: normocephalic ENMT: pertinent finding (Mucous membranes are dry) Neck: pertinent finding (Neck veins are flat) Lungs: Respiratory effort: dyspneic Auscultation: deminished air movement, decreased breath sounds, expiratory wheezing Cardiovascular: Heart Auscultation: no rubs, II/ KELSEY, irregular rate rhythm Abdomen: Inspection & Palpation: soft, non-distended, no tenderness, guarding & rebound Extremities: no cyanosis, no ulcers, pertinent finding (lymphedematous changes. No significant edema) Neurologic: Cranial Nerves: grossly intact Assessment and Plan Assessment and Plan Admission with multifactorial respiratory insufficiency Severe oxygen dependent chronic obstructive pulmonary disease. Probable HCAP. 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 Echo with RV dysfunction and evidence of pulmonary hypertension. No examination findings to suggest acute decompensated heart failure Moderate aortic stenosis. Peripheral edema on presentation likely secondary to hypoalbuminemia, lymphedema Chronic atrial fibrillation. Heart rates are controlled without AV zenobia janel therapy CHADS2 Score of 6/6 History of high grade AV block [place] [facility] [place] with discontinuation of digoxin Urinary retention +MRSA from posterior cervical surgical incision. RECOMMENDATIONS: Outpatient chart available for review since evaluation yesterday. Patient with multiple documented falls including falls from bed and a chair. Risks of anticoagulation felt to be greater than the benefit despite the high CHADS2 Score Will not transition Heparin to Coumadin. Utilize ASA. Continue to hold furosemide. Avoid AV zenobia blockers. No overt indication for permanent pacemaker implantation at this point. Medical management of the aortic stenosis. Cardiology Attending Physician: Patient seen and examined at the bedside. Creatinine not significantly changed. Denies CP, orthopnea, palpitations. LE edema unchanged. PE: VSS, Gen: chronically ill. NAD, awake and alert. Heart: Irregular, normal S1 and S2. 1/6 KELSEY. Lungs: +exp wheeze. Ext: mild pedal edema. A/P: Agree with above PA-C history, physical exam, assessment and plan. Patient may be transferred to [facility]. Will follow. Rasheed Fuentes DO, [facility] Laboratory Results Last 24 Hours Test 12/21/16 11:34 12/21/16 11:35 12/21/16 16:21 12/21/16 18:00 Bedside Glucose 144 mg/dl 221 mg/dl Prothrombin Time 14.2 SECONDS Prothromb Time International Ratio 1.3 Activated Partial Thromboplast Time 33.0 SECONDS 45.0 SECONDS Partial Thromboplastin Ratio 1.3 1.7 Test 12/21/16 19:54 12/21/16 21:30 12/22/16 01:30 12/22/16 04:35 Bedside Glucose 318 mg/dl Vancomycin Level Trough 21.2 mcg/ml Activated Partial Thromboplast Time 62.5 SECONDS 58.8 SECONDS Partial Thromboplastin Ratio 2.4 2.3 White Blood Count 8.03 K/uL Red Blood Count 3.97 M/uL Hemoglobin 10.8 g/dL Hematocrit 33.1 % Mean Corpuscular Volume 83.4 fL Mean Corpuscular Hemoglobin 27.2 pg Mean Corpuscular Hemoglobin Concent 32.6 g/dl Platelet Count 187 K/uL Mean Platelet Volume 10.2 fL Neutrophils (%) (Auto) 85.4 % Lymphocytes (%) (Auto) 7.7 % Monocytes (%) (Auto) 6.5 % Eosinophils (%) (Auto) 0.0 % Basophils (%) (Auto) 0.0 % Neutrophils # (Auto) 6.86 K/uL Lymphocytes # (Auto) 0.62 K/uL Monocytes # (Auto) 0.52 K/uL Eosinophils # (Auto) 0.00 K/uL Basophils # (Auto) 0.00 K/uL RDW Standard Deviation 51.0 fL RDW Coefficient of Variation 16.6 % Immature Granulocyte % (Auto) 0.4 % Immature Granulocyte # (Auto) 0.03 K/uL Sodium Level 135 mmol/L Potassium Level 4.2 mmol/L Chloride Level 97 mmol/L Carbon Dioxide Level 31 mmol/L Anion Gap 7.0 mmol/L Blood Urea Nitrogen 58 mg/dl Creatinine 2.60 mg/dl Est Creatinine Clear Calc Drug Dose 26.0 ml/min Estimated GFR () 25.3 Estimated GFR (Non- 21.8 BUN/Creatinine Ratio 22.5 Random Glucose 170 mg/dl Calcium Level 8.7 mg/dl Random Vancomycin Level 19.5 mcg/ml Test 12/22/16 06:57 Bedside Glucose 150 mg/dl
[2016-12-22] MEDS: HEPARIN SOD 5000 UNIT/0.5 ML CARP SQ SCH ×2 (14:00→22:00)
--- NOTE | 2016-12-22 15:38 | Progress Note ---
Internal Med Progress Note Date of Service: Dec 22, 2016. Provider Documentation: SUBJECTIVE: The patient was seen and examined OOB in a chair Feels much better today Denies any symptoms OBJECTIVE: Vital Signs-as noted below Exam: General-no distress at rest Eyes-Normal ENT-normal Neck-Supple Lungs-Clear to ausucltate bilaterally Heart-Regular, 2/6 ESM AA Abdomen-Benign,no masses,bowel sound present Extremities-Trace edema bilaterally Neuro-AA generally weak and Lethargic Lab data as noted below. ASSESSMENT & PLAN: Suggested MRSA Pneumonia Acute on chronic hypoxemic respiratory failure COPD exacerbation Sputum growing MRSA,MRSA swab positive Treated with iv abx Zosyn, vanco and po azithromycin On po steroids and nebs Appreciate pulmonary inputs Clinically better Likel;y discharge in a day or two Chronic diastolic CHF With moderate Appreciate cardiology input ARF Multifactorial Sepsis and dehydration Appreciate Nephrology input Very slow improvement AF, rate controlled had high grade AV bolck [place] [facility] [place] and reverted after stopping digoxin not on anticoagulation secondary to question of occult GI bleed and anemia workup. No anticoagulations DM2, insulin requiring on Lantus and iss will monitor whole on steroids. Neck cellulitis recent cervical surgery ans site grew MRSA Ortho consulted and appreciate inputs No surgical intervention . Occult GI bleed. Hemoglobin drop over the last few months Hx diverticulosis, colonic polyps as per records. GI plans to workup if family willing once respiratory issues resolves. hb ~10 Dementia as per records Nop acute delirium DISPOSITION monitor in tele pt/ot when stable social service for d/c planning Discussed with the Daughter in detailed Vital Signs: Date Time Temp Pulse Resp B/P Pulse Ox O2 Delivery O2 Flow Rate FiO2 12/22/16 14:09 77 16 97 Nasal Cannula 2.0 12/22/16 12:00 Nasal Cannula 2.0 12/22/16 11:56 36.4 77 20 130/74 97 Nasal Cannula 2.0 12/22/16 08:12 36.4 83 16 126/74 93 12/22/16 08:00 Nasal Cannula 2.0 12/22/16 07:03 78 16 97 Nasal Cannula 2.0 12/22/16 04:15 Nasal Cannula 2.0 12/22/16 03:01 36.9 93 22 104/75 92 Nasal Cannula 2.0 12/22/16 01:45 86 16 95 Nasal Cannula 2.0 12/22/16 00:15 96 Nasal Cannula 2.0 12/22/16 00:00 36.2 84 20 115/74 96 Nasal Cannula 2.0 12/21/16 20:10 98 Nasal Cannula 2.0 12/21/16 19:49 36.3 84 22 108/71 98 Nasal Cannula 2.0 12/21/16 18:56 85 16 96 Nasal Cannula 2.0 12/21/16 16:00 Nasal Cannula 2.0 12/21/16 15:57 36.4 85 20 108/69 94 Nasal Cannula 2.0 Lab Results: Results Past 24 Hours Test 12/21/16 16:21 12/21/16 18:00 12/21/16 19:54 12/21/16 21:30 Range/Units Bedside Glucose 221 318 70-99 mg/dl Activated Partial Thromboplast Time 45.0 21.0-31.0 SECONDS Partial Thromboplastin Ratio 1.7 Vancomycin Level Trough 21.2 SEE COMMENT mcg/ml Test 12/22/16 01:30 12/22/16 04:35 12/22/16 06:57 12/22/16 11:33 Range/Units Activated Partial Thromboplast Time 62.5 58.8 21.0-31.0 SECONDS Partial Thromboplastin Ratio 2.4 2.3 White Blood Count 8.03 4.8-10.8 K/uL Red Blood Count 3.97 4.7-6.1 M/uL Hemoglobin 10.8 14.0-18.0 g/dL Hematocrit 33.1 42-52 % Mean Corpuscular Volume 83.4 80-100 fL Mean Corpuscular Hemoglobin 27.2 25-34 pg Mean Corpuscular Hemoglobin Concent 32.6 32-36 g/dl Platelet Count 187 130-400 K/uL Mean Platelet Volume 10.2 7.4-10.4 fL Neutrophils (%) (Auto) 85.4 % Lymphocytes (%) (Auto) 7.7 % Monocytes (%) (Auto) 6.5 % Eosinophils (%) (Auto) 0.0 % Basophils (%) (Auto) 0.0 % Neutrophils # (Auto) 6.86 1.4-6.5 K/uL Lymphocytes # (Auto) 0.62 1.2-3.4 K/uL Monocytes # (Auto) 0.52 0.11-0.59 K/uL Eosinophils # (Auto) 0.00 0-0.5 K/uL Basophils # (Auto) 0.00 0-0.2 K/uL RDW Standard Deviation 51.0 36.4-46.3 fL RDW Coefficient of Variation 16.6 11.5-14.5 % Immature Granulocyte % (Auto) 0.4 % Immature Granulocyte # (Auto) 0.03 0.00-0.02 K/uL Sodium Level 135 136-145 mmol/L Potassium Level 4.2 3.5-5.1 mmol/L Chloride Level 97 98-107 mmol/L Carbon Dioxide Level 31 21-32 mmol/L Anion Gap 7.0 3-11 mmol/L Blood Urea Nitrogen 58 7-18 mg/dl Creatinine 2.60 0.60-1.40 mg/dl Est Creatinine Clear Calc Drug Dose 26.0 ml/min Estimated GFR () 25.3 Estimated GFR (Non- 21.8 BUN/Creatinine Ratio 22.5 10-20 Random Glucose 170 70-99 mg/dl Calcium Level 8.7 8.5-10.1 mg/dl Random Vancomycin Level 19.5 mcg/ml Bedside Glucose 150 192 70-99 mg/dl
--- NOTE | 2016-12-22 15:39 | Pharmacy Progress Note ---
Pharmacy Antibiotic Prog Note Date of Service: Dec 22, 2016. Subjective: The patient is currently receiving Vancomycin 1400 mg (~13.7 mg/kg) IV every 30 hours. The patient is currently on day # 5 of Zosyn/Vancomycin IV therapy. Objective: Height (Feet): 5 Height (Inches): 10.00 Weight (Kilograms): 104.600 Levels: Item Value Date Time Vancomycin Level Trough 21.2 mcg/ml 12/21/16 2130 Random Vancomycin Level 19.5 mcg/ml 12/22/16 0435 Lab Results (24hrs): Laboratory Tests Test 12/22/16 04:35 BUN/Creatinine Ratio 22.5 Blood Urea Nitrogen 58 mg/dl Creatinine 2.60 mg/dl White Blood Count 8.03 K/uL Red Blood Count 3.97 M/uL Hemoglobin 10.8 g/dL Hematocrit 33.1 % Mean Corpuscular Volume 83.4 fL Mean Corpuscular Hemoglobin 27.2 pg Mean Corpuscular Hemoglobin Concent 32.6 g/dl Platelet Count 187 K/uL Mean Platelet Volume 10.2 fL Neutrophils (%) (Auto) 85.4 % Lymphocytes (%) (Auto) 7.7 % Monocytes (%) (Auto) 6.5 % Eosinophils (%) (Auto) 0.0 % Basophils (%) (Auto) 0.0 % Neutrophils # (Auto) 6.86 K/uL Lymphocytes # (Auto) 0.62 K/uL Monocytes # (Auto) 0.52 K/uL Eosinophils # (Auto) 0.00 K/uL Basophils # (Auto) 0.00 K/uL Micro Results: Item Value Date Time Gram Stain - Final Resulted 12/18/16 2100 Drainage - Surface Neck STAPHYLOCOCCUS AUREUS MRSA DNA Surveillance Screen - Final Complete 12/19/16 1428 Nasal Specimen Positive for MRSA by DNA Probe MRSA DNA Surveillance Screen - Final Complete 12/18/16 2100 Nasal Specimen Positive for MRSA by DNA Probe Blood Culture - Preliminary Resulted 12/18/16 1842 Blood NO GROWTH TO DATE. Blood Culture - Preliminary Resulted 12/18/16 1837 Blood NO GROWTH TO DATE. RUN DATE: 12/20/[address] [facility] LAB PAGE 1 RUN TIME: 1241 Specimen Inquiry PATIENT: CRISTINA QUIROZ LOC: Ingrid U # : [id number] AGE/SX: 81/M ROOM: S233 REG : 12/18/[address]: Julian Peralta MD : [id number] BED: 1 DIS : STATUS: ADM IN TLOC: SPEC #: [id number] DRE: 12/18/16 STATUS: RES REQ #: [id number] RECD: 12/18/[address]: Gonzalez Bains M.D. SOURCE: DRAIN-SURF ENTR: 12/18/16 [facility] DR: Elmer Wei, DO SPDESC: NECK Julian Peralta MD Panlilio, Robin A. , MD Juarez, Mimi,P.AHebert ORDERED: SURF WND CU/[facility] COMMENTS: Has Specimen Been Obtained/Collected? Y Procedure Result Verified Site GRAM STAIN Final 12/19/16-0804 RESULT FEW EPITHELIAL CELLS FEW WBCs SEEN MANY GRAM POSITIVE COCCI SURFACE WOUND CULTURE Preliminary 12/20/16-1241 Organism 1 STAPHYLOCOCCUS AUREUS QUANITY MODERATE SENS SENSITIVITY TO FOLLOW SENSITIVITY RESULT INDICATES A METHICILLIN RESISTANT STAPH. AUREUS. PHONED TO ELIZABETH SHARMA ON 12/20/16 AT 4051 BY Shantal Haque. Results were verbalized back to RESULTS WERE ALSO CALLED TO [facility] INFECTION CONTROL ANSWERING MACHINE ON 12/20/16 BY 1. STAPHYLOCOCCUS AUREUS Target Route Dose RX AB Cost M.I.C. IQ ------ ----- ------ -- ------ -------- - ------ TRIMET/SULFA S <=0.5/ 9.5 * OXACILLIN R * >2 VANCOMYCIN S 1 ERYTHROMYCIN S <=0.5 TETRACYCLINE R >8 CLINDAMYCIN S <=0.5 DAPTOMYCIN S <=0.5 RIFAMPIN S <=1 S = SENSITIVE I = INTERMEDIATE R = RESISTANT Recent Pertinent Medications: Item Value Date Time Vancomycin HCl 528 ml @ 200 mls/hr 12/20/16 1600 1400 mg/Sodium Q30H/IV 12/20/16 1547 Chloride Azithromycin 500 mg 12/19/16 2000 (Zithromax Tab) HS/PO 12/21/16 1959 Piperacillin Sod/ 115 ml @ 28.75 mls/hr 12/19/16 0000 Tazobactam Sod Q8H/IV 12/22/16 1045 3.375 gm/Dextrose Vancomycin HCl 540 ml @ 200 mls/hr 12/19/16 2100 1000 mg/Sodium TODAY@1930 ONCE/IV Chloride Vancomycin HCl 270 ml @ 125 mls/hr 12/18/16 1833 1000 mg/Sodium NOW STAT/IV 12/18/161902 Chloride Levofloxacin 500 mg 12/18/161832 (Levaquin / D5W) NOW STAT/IV 12/18/161904 Piperacillin Sod/ 4.5 gm 12/18/161832 Tazobactam Sod NOW STAT/IV 12/18/16 194 (Zosyn Iv) Assessment & Plan: 81-yo male [facility] resident with multiple medical comorbidities admitted with COPD exacerbation, h/o odontoid fx with incision, + MRSA cultures and ARLEEN/ CKD. Patient not clearing Vancomycin per model based on estimated creatinine clearance. IV Vancomycin was held last evening and serial levels suggest restarting dosing this evening with an additional Vancomycin 1 gram dose followed by dosing by serial levels when level in the range of 15 to 20 mcg per mL. Single Vancomycin 1000 mg (~ 9.5 mg/kg) dose at ~21 hours tonight. Goal peak level estimate: between 25 - 40 mcg/mL. Vancomycin random level has been ordered for: 12/24/16 with am labs. Re-dose IV Vancomycin once level in the 15-20 mcg/ml range Pharmacy will continue to follow and will adjust dose/frequency as necessary. Thank you
[2016-12-22] MEDS ORDERED: VANCOMYCIN INJ 1,000 MG in SODIUM CHLORIDE 0.9% 250ML 250 ML IV ONE (21:00)
[2016-12-22] MEDS: TRAZODONE HCL 50 MG TAB PO SCH (21:54)
[2016-12-22] MEDS: SIMVASTATIN 20 MG TAB PO SCH (21:55)
[2016-12-22] MEDS: DOCUSATE SODIUM/SENNA 50/8.6MG TAB PO SCH (21:55)
[2016-12-22] MEDS: AZITHROMYCIN 250 MG TAB PO SCH (22:36)
[2016-12-23] VITALS (10 sets, daily range): BP systolic 104–131; BP diastolic 71–89; PULSE 72–99; TEMP 36.3–36.4; O2SAT 95–97
[2016-12-23] MEDS: LEVALBUTEROL 1.25MG/0.5ML NEB INH SCH ×3 (01:23→15:00)
[2016-12-23] MEDS: IPRATROPIUM BROMIDE NEB SOLN 0.02% 2.5 ML VIAL INH SCH ×3 (01:23→15:00)
[2016-12-23] MEDS: HEPARIN SOD 5000 UNIT/0.5 ML CARP SQ SCH ×2 (06:19→14:45)
[2016-12-23 07:31] LABS: COMPLETE YES; HEMATOCRIT 31.8 % (42-52); IG% 0.3 %; LYMPH % 5.7 %; LYMPH ABS # 0.42 K/uL (1.2-3.4); MEAN CELL VOLUME 81.1 fL (80-100); MEAN CORPUSCULAR HGB CONC 33.3 g/dl (32-36); MEAN PLATELET VOLUME 9.9 fL (7.4-10.4); MONO % 12.4 %; NEUT % 81.6 %; PLATELET COUNT 186 K/uL (130-400); RED BLOOD COUNT 3.92 M/uL (4.7-6.1); WHITE BLOOD COUNT 7.32 K/uL (4.8-10.8)
[2016-12-23 07:47] LABS: BUN/CREATININE RATIO 24.1 (10-20); CALCIUM 8.7 mg/dl (8.5-10.1); CREATININE 2.6 mg/dl (0.60-1.40); POTASSIUM 4.4 mmol/L (3.5-5.1)
[2016-12-23] MEDS ORDERED: ASPIRIN 81 MG ECTAB PO SCH (08:00)
[2016-12-23] MEDS: RANITIDINE HCL 150 MG TAB PO SCH (09:16)
[2016-12-23] MEDS: INSULIN ASPART 100 UNITS/ML 3 ML PEN SC SCH ×3 (09:18→16:30)
[2016-12-23] MEDS: INSULIN GLARGINE SOLOSTAR 100 UNITS/ML 3 ML PEN SC SCH (09:18)
[2016-12-23] MEDS: PIPERACILL/TAZOBAC IV 3.375 GM in DEXTROSE 5% 100ML IV SCH ×4 (09:19→16:56)
--- NOTE | 2016-12-23 09:19 | Cardiology Follow-Up ---
Subjective General Date of Service: Dec 23, 2016. Chief Complaint: Follow-up Pt evaluation today including: conversation w/ patient, physical exam, chart review, lab review, review of studies, review of inpatient medication list History of Present Illness Patient seen and examined. No complaints. Denies chest pain. Stable dyspnea. Denies palpitations. No orthopnea or PND. Broussard catheter in place. Nonmonitored bed. Allergies Coded Allergies: No Known Allergies (Unverified , 09/25/16) Social History Smoking Status: Former Smoker Hx Tobacco Use In Past Year?: No Hx Alcohol Use - Type And Amou: No Hx Substance Use - Type And Am: No Problem List Medical Problems: (1) Cellulitis of right leg Status: Acute (2) Fall Status: Acute (3) Odontoid fracture Status: Acute (4) Pneumonia Status: Acute Review of Systems Respiratory: + dyspnea on exertion, No cough, No dyspnea at rest, No hemoptysis , No shortness of breath, No wheezing Cardiac: + edema, No PND, No chest pain, No claudication, No orthopnea Physical Exam Vital Signs Last Vital Signs Documentation Date Time Temp Pulse Resp B/P Pulse Ox O2 Delivery O2 Flow Rate FiO2 12/23/16 07:58 36.3 83 20 104/71 96 Nasal Cannula 2.0 Physical Exam Constitutional: Level of Distress: NAD Psychiatric: Memory: remote memory normal, recent memory abnormal Head: normocephalic ENMT: pertinent finding (Mucous membranes are dry) Lungs: Respiratory effort: dyspneic Auscultation: deminished air movement, decreased breath sounds, expiratory wheezing Cardiovascular: Heart Auscultation: no rubs, II/ KELSEY, irregular rate rhythm Abdomen: Inspection & Palpation: soft, non-distended, no tenderness, guarding & rebound Extremities: no cyanosis, no ulcers, pertinent finding (lymphedematous changes. No significant edema) Neurologic: Cranial Nerves: grossly intact Assessment and Plan Assessment and Plan Admission with multifactorial respiratory insufficiency Severe oxygen dependent chronic obstructive pulmonary disease, probable HCAP. 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 Echo with RV dysfunction and evidence of pulmonary hypertension. No examination findings to suggest acute decompensated heart failure Moderate aortic stenosis. Peripheral edema on presentation likely secondary to hypoalbuminemia, lymphedema Chronic atrial fibrillation. Heart rates are controlled without AV zenobia janel therapy CHADS2 Score of 6/6 with risks of anticoagulation felt to be greater than the benefit. History of high grade AV block when hospitalized at [facility] [place], resolving with discontinuation of digoxin Urinary retention +MRSA from posterior cervical surgical incision. RECOMMENDATIONS: Continue current medications as prescribed. Utilize ASA. Risks of anticoagulation are felt to be greater than the benefit despite the high CHADS2 Score Avoid AV zenobia blockers. No overt indication for permanent pacemaker implantation at this point. Medical management of the aortic stenosis. Recommend routine outpatient cardiology follow-up in [place] Will sign off. Please call with any questions or concerns. Cardiology Attending Physician: Patient seen and examined at the bedside. Creatinine stable. Denies CP, orthopnea, palpitations. LE edema unchanged. Patient offers no complaints. PE: VSS, Gen: chronically ill. NAD, awake and alert. Heart: Irregular, normal S1 and S2. 1/6 KELSEY. Lungs: +exp wheeze. Ext: mild pedal edema. A/P: Agree with above PA-C history, physical exam, assessment and plan. Will sign off. Please call with questions. Rasheed Fuentes DO, [facility] Laboratory Results Last 24 Hours Test 12/22/16 11:33 12/22/16 16:27 12/22/16 20:36 12/22/16 22:09 Bedside Glucose 192 mg/dl 141 mg/dl 220 mg/dl 216 mg/dl Test 12/23/16 06:42 12/23/16 07:46 White Blood Count 7.32 K/uL Red Blood Count 3.92 M/uL Hemoglobin 10.6 g/dL Hematocrit 31.8 % Mean Corpuscular Volume 81.1 fL Mean Corpuscular Hemoglobin 27.0 pg Mean Corpuscular Hemoglobin Concent 33.3 g/dl Platelet Count 186 K/uL Mean Platelet Volume 9.9 fL Neutrophils (%) (Auto) 81.6 % Lymphocytes (%) (Auto) 5.7 % Monocytes (%) (Auto) 12.4 % Eosinophils (%) (Auto) 0.0 % Basophils (%) (Auto) 0.0 % Neutrophils # (Auto) 5.97 K/uL Lymphocytes # (Auto) 0.42 K/uL Monocytes # (Auto) 0.91 K/uL Eosinophils # (Auto) 0.00 K/uL Basophils # (Auto) 0.00 K/uL RDW Standard Deviation 49.8 fL RDW Coefficient of Variation 16.8 % Immature Granulocyte % (Auto) 0.3 % Immature Granulocyte # (Auto) 0.02 K/uL Sodium Level 134 mmol/L Potassium Level 4.4 mmol/L Chloride Level 98 mmol/L Carbon Dioxide Level 26 mmol/L Anion Gap 10.0 mmol/L Blood Urea Nitrogen 63 mg/dl Creatinine 2.60 mg/dl Est Creatinine Clear Calc Drug Dose 26.1 ml/min Estimated GFR () 25.3 Estimated GFR (Non- 21.8 BUN/Creatinine Ratio 24.1 Random Glucose 196 mg/dl Calcium Level 8.7 mg/dl Chemistry Specimen Hemolysis Bedside Glucose 194 mg/dl
[2016-12-23] MEDS: GUAIFENESIN 600 MG TABCR PO SCH (09:20)
--- NOTE | 2016-12-23 10:56 | DIAGNOSTIC IMAGING REPORT ---
ULTRASOUND VENOUS DOPPLER LWR EXT BILA CLINICAL HISTORY: leg swelling COMPARISON STUDY: No previous studies for comparison. FINDINGS: Real-time and color flow Doppler imaging were performed. Flow was seen within the femoral, popliteal and calf veins with no intraluminal thrombus demonstrated. The saphenous vein is patent. Incidental note is made of a right popliteal artery aneurysm measuring 2.5 cm in diameter. The venous waveforms demonstrate increased pulsatility, a finding suggesting elevated right heart pressures. Clinical correlation regards to congestive failure is recommended IMPRESSION: 1. No evidence of lower extremity DVT 2. 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 Venous waveforms indicative of elevated right heart pressures Electronically signed by: Kevin Dean M.D. 12/23/2016 10:55 AM Dictated Date/Time: 12/23/2016 10:53 AM
[2016-12-23] MEDS: ALBUMIN HUMAN 25% 12.5 GM/50 ML VIAL IV SCH (11:05)
--- NOTE | 2016-12-23 11:16 | Progress Note ---
Internal Med Progress Note Date of Service: Dec 23, 2016. Provider Documentation: SUBJECTIVE: The patient was seen and examined OOB in a chair Feels much better today Denies any symptoms Will be transferred to [facility] today OBJECTIVE: Vital Signs-as noted below Exam: General-no distress at rest Eyes-Normal ENT-normal Neck-Supple Lungs-Clear to ausucltate bilaterally Heart-Regular, 2/6 ESM AA Abdomen-Benign,no masses,bowel sound present Extremities-Trace edema bilaterally Neuro-AA generally weak and Lethargic Lab data as noted below. ASSESSMENT & PLAN: Suggested MRSA Pneumonia Acute on chronic hypoxemic respiratory failure COPD exacerbation Sputum growing MRSA,MRSA swab positive Treated with iv abx Zosyn, vanco and po azithromycin On po steroids and nebs Appreciate pulmonary inputs Clinically much better Discussed with the Daughter Discharge today to [facility] Chronic diastolic CHF With moderate Appreciate cardiology input ARF Multifactorial Sepsis and dehydration Appreciate Nephrology input Very slow improvement OP appointment with Nephrology Creatinine is stable at 2.60 AF, rate controlled had high grade AV bolck at [facility] and reverted after stopping digoxin not on anticoagulation secondary to question of occult GI bleed and anemia workup. No anticoagulations DM2, insulin requiring on Lantus and iss will monitor whole on steroids. Neck cellulitis recent cervical surgery ans site grew MRSA Ortho consulted and appreciate inputs No surgical intervention Sensitive to clindamycin . Occult GI bleed. Hemoglobin drop over the last few months Hx diverticulosis, colonic polyps as per records. GI plans to workup if family willing once respiratory issues resolves. hb ~10 Dementia as per records No acute delirium DISPOSITION monitor in tele pt/ot when stable social service for d/c planning Discussed with the Daughter in detailed Vital Signs: Date Time Temp Pulse Resp B/P Pulse Ox O2 Delivery O2 Flow Rate FiO2 12/23/16 11:02 98 131/88 12/23/16 07:58 36.3 83 20 104/71 96 Nasal Cannula 2.0 12/23/16 07:00 92 16 96 Nasal Cannula 2.0 12/23/16 01:23 84 16 95 Nasal Cannula 2.0 12/23/16 00:00 96 Nasal Cannula 2.0 12/22/16 23:27 36.6 88 18 114/73 95 Nasal Cannula 2.0 Humidified Oxygen 12/22/16 20:22 36.4 80 16 108/70 95 Nasal Cannula 2.0 12/22/16 20:00 96 Nasal Cannula 2.0 12/22/16 19:34 36.3 84 18 113/74 96 Nasal Cannula 2.0 12/22/16 19:02 Nasal Cannula 2.0 12/22/16 17:03 36.7 87 18 111/73 100 Nasal Cannula 2.0 12/22/16 16:00 Nasal Cannula 2.0 12/22/16 14:09 77 16 97 Nasal Cannula 2.0 12/22/16 12:00 Nasal Cannula 2.0 12/22/16 11:56 36.4 77 20 130/74 97 Nasal Cannula 2.0 Lab Results: Results Past 24 Hours Test 12/22/16 11:33 12/22/16 16:27 12/22/16 20:36 12/22/16 22:09 Range/Units Bedside Glucose 192 141 220 216 70-99 mg/dl Test 12/23/16 06:42 12/23/16 07:46 Range/Units White Blood Count 7.32 4.8-10.8 K/uL Red Blood Count 3.92 4.7-6.1 M/uL Hemoglobin 10.6 14.0-18.0 g/dL Hematocrit 31.8 42-52 % Mean Corpuscular Volume 81.1 80-100 fL Mean Corpuscular Hemoglobin 27.0 25-34 pg Mean Corpuscular Hemoglobin Concent 33.3 32-36 g/dl Platelet Count 186 130-400 K/uL Mean Platelet Volume 9.9 7.4-10.4 fL Neutrophils (%) (Auto) 81.6 % Lymphocytes (%) (Auto) 5.7 % Monocytes (%) (Auto) 12.4 % Eosinophils (%) (Auto) 0.0 % Basophils (%) (Auto) 0.0 % Neutrophils # (Auto) 5.97 1.4-6.5 K/uL Lymphocytes # (Auto) 0.42 1.2-3.4 K/uL Monocytes # (Auto) 0.91 0.11-0.59 K/uL Eosinophils # (Auto) 0.00 0-0.5 K/uL Basophils # (Auto) 0.00 0-0.2 K/uL RDW Standard Deviation 49.8 36.4-46.3 fL RDW Coefficient of Variation 16.8 11.5-14.5 % Immature Granulocyte % (Auto) 0.3 % Immature Granulocyte # (Auto) 0.02 0.00-0.02 K/uL Sodium Level 134 136-145 mmol/L Potassium Level 4.4 3.5-5.1 mmol/L Chloride Level 98 98-107 mmol/L Carbon Dioxide Level 26 21-32 mmol/L Anion Gap 10.0 3-11 mmol/L Blood Urea Nitrogen 63 7-18 mg/dl Creatinine 2.60 0.60-1.40 mg/dl Est Creatinine Clear Calc Drug Dose 26.1 ml/min Estimated GFR () 25.3 Estimated GFR (Non- 21.8 BUN/Creatinine Ratio 24.1 10-20 Random Glucose 196 70-99 mg/dl Calcium Level 8.7 8.5-10.1 mg/dl Chemistry Specimen Hemolysis Bedside Glucose 194 70-99 mg/dl
[2016-12-23] MEDS ORDERED: PRD20 PO (15:02)
[2016-12-23] MEDS ORDERED: LCTX PO (15:02)
[2016-12-23] MEDS ORDERED: CLIN300C2 PO (15:02)
--- NOTE | 2016-12-23 15:08 | Discharge Instructions ---
Discharge Instructions Date of Service Dec 23, 2016. Admission Reason for Admission: Respiratory Failure, Acute Discharge Discharge Diagnosis / Problem: Acute Hypoxic Respiratory failure,Atrial Fibrillation Discharge Goals Goal(s): Prevent Disease Progression Activity Recommendations Activity Level: Assistance Required Therapies: Physical Therapy, Occupational Therapy . Additional Information Patient informed of condition: Yes Advance Directives: No DNR: No Level of Care: Skilled Communicable Disease: No Prognosis: Stable Oxygen at (LPM): 2 liters/min via NC as needed Broussard Catheter: Yes (Try to discontinue in a few days.May need Urology evaluation) Instructions / Follow-Up Instructions / Follow-Up Please make an appointment with PCP in 7 days,Cardiology appointment with [place] [facility] Current Hospital Diet Patient's current hospital diet: Diabetes Type 2 Diet Discharge Diet Recommended Diet: Diabetes Type 2 Diet Fluid Restriction: 1500 ml (6 cups) Pending Studies Studies pending at discharge: no Medical Emergencies . Who to Call and When: Medical Emergencies: If at any time you feel your situation is an emergency, please call 911 immediately. . Non-Emergent Contact Non-Emergency issues call your: Primary Care Provider . Past History Medical & Surgical History: (1) Cellulitis (2) Respiratory failure, acute (3) Diabetes (4) Atrial fibrillation (5) Hypertension (6) COPD (chronic obstructive pulmonary disease) (7) Dyslipidemia (8) Status post right knee replacement (9) History of total right hip arthroplasty . "Provider Documentation" section prepared by Yakov Liz. Core Measure Problem Core Measures: None
--- NOTE | 2016-12-23 17:47 | Discharge Summary ---
Discharge Summary Date of Service Dec 23, 2016. Discharge Summary Admission Date: Dec 18, 2016 at 20:02 Discharge Date: Dec 23, 2016 Discharge Disposition: long-term facility Principal Diagnosis: Acute Hypoxic Respiratory failure,Atrial Fibrillation Secondary Diagnoses/Problems: Please see H&P and Hospital Progress note Consultations: Pulmonary,Cardiology,GI,Nephrology Medication Reconciliation New Medications: Clindamycin Hcl (Cleocin) 300 Mg Cap 300 MG PO TID for 5 Days, #15 CAP Lactobacillus Acidophilus (Lactinex) Tab 2 TAB PO BID, #30 TAB Prednisone (Prednisone) 20 Mg Tab 20 MG PO UD for 10 Days, #15 TAB 2 po daily for 3 days,1 and a 1/2 po daily for 3 days,1 po daily for 3 dats ,1/2 po daily for 3 days Continued Medications: Albuterol Sulfate (Proventil Hfa) 108 Mcg/Act Aer Aspirin (Aspir-81) 81 Mg Tab 1 TAB PO DAILY for 30 Days, #30 TAB 5 Refills Docusate Sodium (Dok) 100 Mg Tab Furosemide (Lasix) 20 Mg Tab 1 TAB PO DAILY for 90 Days, #90 TAB 1 Refill Insulin Aspart (Novolog Flexpen) 100 Units/Ml Inj 10 UNITS SC TIDM for 30 Days, #1 EA Insulin Glargine (Lantus) 100 Unit/Ml Inj 20 UNITS SC QPM, VIAL Decreased to 20 units daily.May need to increase the dose Ipratropium [place] (Nasal) (Ipratropium [place]) 0.03 % Spr Lorazepam (Ativan) 1 Mg Tab 1 MG PO HS Magnesium Hydroxide (Milk Of Magnesia) 30 Ml Susp 30 ML PO, ML Melatonin ( Melatonin) 3 Mg Tab 1 TAB PO HS for 30 Days, #30 TAB 2 Refills Ondansetron Hcl (Zofran) 4 Mg Tab 4 MG PO PRN for Nausea, TAB Oxygen (Oxygen) Gas 1 LITER NA PRN Polyethylene Glycol 3350 (Bulk (Polyethylene Glycol 3350) 1 Pow Pow 17 GM PO DAILY for 30 Days, #527 GM 11 Refills Ranitidine (Zantac) 150 Mg Tab 1 TAB PO BID for 30 Days, #60 TAB 3 Refills Simvastatin (Zocor) 20 Mg Tab 20 MG PO HS, TAB Trazodone Hcl (Trazodone) 50 Mg Tab 50 MG PO, TAB Discontinued Medications: Oseltamivir (Tamiflu) 75 Mg Cap 75 MG PO BID, #10 CAP Warfarin Sod (Jantoven) 5 Mg Tab 5 MG PO 6XWK TAKE 5 MG DAILY ON MON,WED,WED,,SAT,SUN Warfarin Sod (Jantoven) 5 Mg Tab 7.5 MG PO WK TAKE DAILY ON FRIDAYS Admission Information HPI (per Admitting provider): DATE OF ADMISSION: 12/18/2016 History obtained from patient records, patient's daughter, and family. The patient is a [facility] resident. CHIEF COMPLAINT: Shortness of breath. HISTORY OF PRESENT ILLNESS: Medical history significant for chronic respiratory failure secondary to COPD on home O2, JOHN as per records, chronic diastolic heart failure (EF of 54% from October 2016), moderate aortic stenosis as per records, hypertension per records, Afib on anticoagulation, past tobacco abuse, chronic anemia (baseline hemoglobin 11-12), history of colonic polyposis, diverticulosis as per records, dementia as per records, DM2 insulin requiring, chronic renal insufficiency ( baseline creatinine 2), odontoid fracture status post surgery (10/2016). Patient admitted at [facility] 11/06/2016 for neck surgery for odontoid fracture secondary to fall, occasional wound drainage. As per records, the last 2 week patient noted to have gary leg swelling. Patient being given diuretics at [place]. Out[place] [facility] Cardiology consultation contemplated. Px noted have sticky dry cough sx, unable to expectorate in the last week. No witnessed aspiration. Worsening bilateral lower extremity edema noted. Px noted to have dyspnea, wheezing and fatigue as per records. At the Emergency Room, the patient given vancomycin, Levaquin, Zosyn and albuterol for pneumonia. MEDICAL HISTORY: As above. Px has seen Dr. Brannon in the past for heart issues as per daughter. As per daughter, nonspecific epigastric discomfort, nausea, emesis symptoms. Outpatient CT abdomen and pelvis contemplated. Decreasing hemoglobin noted the last few months as per daughter from baseline of 12s. August 2009 colonoscopy showed polyps and diverticulosis. SURGERIES: He has had neck surgery, knee surgery, hip replacement, neck surgery. HOME MEDICATIONS: Include aspirin, Proventil, Lasix, ipratropium, Lantus, Ativan, milk of mag, Zofran, oxygen, Tamiflu, Zantac, Zocor, trazadone, Coumadin. ALLERGIES: No known drug allergies. FAMILY HISTORY: Family history of dementia. PERSONAL AND SOCIAL HISTORY: Past tobacco abuse. No chronic intake of alcoholic beverages. 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 REVIEW OF SYSTEMS: As per HPI, all other ROS negative. PHYSICAL EXAMINATION: VITAL SIGNS: Blood pressure 103/60, pulse rate 105, RR 28, temperature 36.6, sats 80s on room air, later 95 on 5 liters. GENERAL: Noted to be obese, minimal respiratory distress, somewhat laconic, oriented though and coherent. SKIN: Pallor. HEAD, EYES, EARS, NOSE, AND THROAT: Pale palpebral conjunctivae. Dry mucosa. nasal cannula in place NECK: Short neck. LUNGS: Decreased breath sounds. HEART: Irregular. ABDOMEN: some distension, no exquisite tenderness EXT : min LE edema, no tenderness NE : no gross focality LABORATORY DATA: Hemoglobin was noted to be 10.5, white cell count 10, platelets 199. INR was 1.2. Sodium 140, potassium 3.5, BUN 40, creatinine 2.3, glucose 140. alkaline phosphatase 268, lipase was 60. troponin normal. ABG pH 7.44, pCO2 49, pO2 76, 92 on 4 liters. Hemoglobin A1c was 7.7 from November 2016 Chest x-ray showed CHF, focal opacities right upper lobe. EKG Afib. Gallbladder ultrasound showed sludge. CT abdomen and pelvis showed distended bladder. Hemoccult positive yellow stool noted at the ER ASSESSMENT: 1. Acute on chronic hypoxemic respiratory failure multifactorial : decompensated heart failure/ history mod as per records COPD exacerbation 2 to HCAP rule out aspiration. no sepsis, past tobacco abuse. 2. Hypertension, blood pressure on the lower side. 3. Chronic renal insufficiency. Creatinine at baseline. 4. AF, rate controlled INR subtx 5. DM2, insulin requiring suboptimal control as of recent HgA1c. 6. Biliary colic symptoms. 7. Occult GI bleed. Hemoglobin drop over the last few months Hx diverticulosis, colonic polyps as per records. 8. dementia as per records PLAN: PCU supplemental O2 Cultures. Doxycycline and Zosyn for now. nebs RTC, p.r.n. Prednisone course for poss COPD exacerbation. swallow eval Pulmonary consult RE COPD exacerbation. Cardio consult, decompensated heart failure. Hold off on diuretics for now given borderline blood pressure and kidney function. strict IOs, daily weights, CHF education ff HH, transfuse prbc if Hg less than 7 and/or symptomatic anemia anemia yeh hold ASA, coumadin for now given anemia progression and occult GI bleed GI consult RE occult GI bleed, progression of anemia Daughter agreeable to endoscopy for father if warranted to ascertain source of occult GI bleed. Basal insulin adjusted for clear liquid diet, ISS BG goal 140-180. DVT prophylaxis. SCDs while Coumadin on hold. FULL CODE PER DAUGHTER, Ms. Savanah Quiroz. Hospital Course Suggested MRSA Pneumonia Acute on chronic hypoxemic respiratory failure COPD exacerbation Sputum growing MRSA,MRSA swab positive Treated with iv abx Zosyn, vanco and po azithromycin On po steroids and nebs Appreciate pulmonary inputs Clinically much better Discussed with the Daughter Discharge today to [facility] Chronic diastolic CHF With moderate Appreciate cardiology input ARF Multifactorial Sepsis and dehydration Appreciate Nephrology input Very slow improvement OP appointment with Nephrology Creatinine is stable at 2.60 AF, rate controlled had high grade AV bolck at [facility] and reverted after stopping digoxin not on anticoagulation secondary to question of occult GI bleed and anemia workup. No anticoagulations DM2, insulin requiring on Lantus and iss will monitor whole on steroids. Neck cellulitis recent cervical surgery ans site grew MRSA Ortho consulted and appreciate inputs No surgical intervention Sensitive to clindamycin . Occult GI bleed. Hemoglobin drop over the last few months Hx diverticulosis, colonic polyps as per records. GI plans to workup if family willing once respiratory issues resolves. hb ~10 Dementia as per records No acute delirium DISPOSITION monitor in tele pt/ot when stable social service for d/c planning Discussed with the Daughter in detailed Total time spent on discharge = 40 minutes This includes examination of the patient, discharge planning, medication reconciliation, and communication with other providers. Discharge Instructions Date of Service Dec 23, 2016. Admission Reason for Admission: Respiratory Failure, Acute Discharge Discharge Diagnosis / Problem: Acute Hypoxic Respiratory failure,Atrial Fibrillation Discharge Goals Goal(s): Prevent Disease Progression Activity Recommendations Activity Level: Assistance Required Therapies: Physical Therapy, Occupational Therapy . Additional Information Patient informed of condition: Yes Advance Directives: No DNR: No Level of Care: Skilled Communicable Disease: No Prognosis: Stable Oxygen at (LPM): 2 liters/min via NC as needed Broussard Catheter: Yes (Try to discontinue in a few days.May need Urology evaluation) Instructions / Follow-Up Instructions / Follow-Up Please make an appointment with PCP in 7 days,Cardiology appointment with [facility] Current Hospital Diet Patient's current hospital diet: Diabetes Type 2 Diet Discharge Diet Recommended Diet: Diabetes Type 2 Diet Fluid Restriction: 1500 ml (6 cups) Pending Studies Studies pending at discharge: no Medical Emergencies . Who to Call and When: Medical Emergencies: If at any time you feel your situation is an emergency, please call 911 immediately. . Non-Emergent Contact Non-Emergency issues call your: Primary Care Provider . Past History Medical & Surgical History: (1) Cellulitis (2) Respiratory failure, acute (3) Diabetes (4) Atrial fibrillation (5) Hypertension (6) COPD (chronic obstructive pulmonary disease) (7) Dyslipidemia (8) Status post right knee replacement (9) History of total right hip arthroplasty . "Provider Documentation" section prepared by Yakov Liz. Core Measure Problem Core Measures: None <Electronically signed by Yakov Liz M.D.> Signed: 12/23/16 7460 Additional Copies To Mimi Juarez P.A.
[2017-01-12] MEDS ORDERED: DMD20 PO (14:22)
[2017-01-12] MEDS ORDERED: PRED10TA PO (14:22)
[2017-01-12] MEDS ORDERED: GUAI1TAB68 PO (14:35)
[2017-02-19] MEDS ORDERED: FINA5TAB PO (13:39)
[2017-02-19] MEDS ORDERED: SODI1ENE PR (13:39)
[2017-02-19] MEDS ORDERED: IPRASOL4 INH (13:39)
[2017-02-19] MEDS ORDERED: TORS10TA14 PO ×2 (13:39)
[2017-02-19] MEDS ORDERED: NVLG SC ×2 (13:39)
[2017-02-19] MEDS ORDERED: AMOX500T PO (13:39)
[2017-02-19] MEDS ORDERED: ADVIN50/60 INH (13:39)
[2017-02-19] MEDS ORDERED: LORA-741 PO (13:39)
== END 2016-12-23 17:13 | DRG 190 ==
LOC: ENRESERVDT → ENRESERVTM → EDBD 17:33 → C.EDA 17:34 → C.2T 20:02 → C.MS4W 12-22 20:00
PROVIDERS: ADMIT Internal Medicine; ATTEND Internal Medicine
DX: J44.0 Chronic obstructive pulmonary disease with (acute) lower respiratory infection (principal); J96.21 Acute and chronic respiratory failure with hypoxia; N17.0 Acute kidney failure with tubular necrosis; J15.212 Pneumonia due to Methicillin resistant Staphylococcus aureus; I50.32 Chronic diastolic (congestive) heart failure; L03.221 Cellulitis of neck; T81.4XXA Infection following a procedure, initial encounter; J44.1 Chronic obstructive pulmonary disease with (acute) exacerbation; I12.9 Hypertensive chronic kidney disease with stage 1 through stage 4 chronic kidney disease, or unspecified chronic kidney disease; I48.91 Unspecified atrial fibrillation; G47.33 Obstructive sleep apnea (adult) (pediatric); E11.9 Type 2 diabetes mellitus without complications; R79.1 Abnormal coagulation profile; F03.90 Unspecified dementia, unspecified severity, without behavioral disturbance, psychotic disturbance, mood disturbance, and anxiety; N18.3 Chronic kidney disease, stage 3 (moderate); R33.9 Retention of urine, unspecified; B95.62 Methicillin resistant Staphylococcus aureus infection as the cause of diseases classified elsewhere; Y83.1 Surgical operation with implant of artificial internal device as the cause of abnormal reaction of the patient, or of later complication, without mention of misadventure at the time of the procedure; I48.2 Chronic atrial fibrillation; N28.9 Disorder of kidney and ureter, unspecified; E88.09 Other disorders of plasma-protein metabolism, not elsewhere classified; I89.0 Lymphedema, not elsewhere classified; I35.0 Nonrheumatic aortic (valve) stenosis; Z98.1 Arthrodesis status; Z86.73 Personal history of transient ischemic attack (TIA), and cerebral infarction without residual deficits; Z83.3 Family history of diabetes mellitus; Z82.49 Family history of ischemic heart disease and other diseases of the circulatory system; Z82.0 Family history of epilepsy and other diseases of the nervous system; Z79.01 Long term (current) use of anticoagulants; Z79.82 Long term (current) use of aspirin; Z87.891 Personal history of nicotine dependence; Z99.81 Dependence on supplemental oxygen; Z79.4 Long term (current) use of insulin

== ENCOUNTER 2017-01-05 20:06 | Inpatient (IN) | payer BC, OTHER ==
[~2017-01-05] VITALS: Ht 172.7 cm; Wt 103.2 kg
[~2017-01-05 20:06] MED LIST changes: -ALBU0.08 INH; -ALBU1AER9 INH; +ALBUAER INH; +ASPI-232 PO; -DIGO0.2518 PO; +DOCU100T PO; -FRS/40 PO; +FURO-85 PO; +IPRA0.03 INH; +LCTX PO; +MELA1TAB5 PO; +MOML PO; +ONDA4TAB46 PO; +OXGN; +POLY1POW2 PO; +PRD20 PO; +TRAZ50TA35 PO; -WARF5TAB7 PO; +ZNTT/150 PO
[2017-01-05] MEDS ORDERED: FUROSEMIDE 40 MG/4 ML VIAL IV STA (20:22)
[2017-01-05 21:10] LABS: BASO % 0.3 %; BASO ABS # 0.02 K/uL (0-0.2); EOS % 2.8 %; HEMATOCRIT 35.9 % (42-52); IG% 0.3 %; LYMPH % 6.6 %; LYMPH ABS # 0.52 K/uL (1.2-3.4); MEAN CELL VOLUME 85.1 fL (80-100); MEAN CORPUSCULAR HEMOGLOBIN 27.7 pg (25-34); MEAN CORPUSCULAR HGB CONC 32.6 g/dl (32-36); MEAN PLATELET VOLUME 10.3 fL (7.4-10.4); MONO % 10.6 %; NEUT % 79.4 %; PLATELET COUNT 133 K/uL (130-400); RED BLOOD COUNT 4.22 M/uL (4.7-6.1); WHITE BLOOD COUNT 7.93 K/uL (4.8-10.8)
[2017-01-05 21:23] LABS: INR 1.1 (0.9-1.1); PARTIAL THROMBOPLASTIN RATIO 1.1
[2017-01-05 21:25] LABS: POINT OF CARE TROPONIN I 0.03 ng/ml (0-0.045)
[2017-01-05] MEDS ORDERED: NVLGI/PEN SC (21:28)
[2017-01-05] MEDS ORDERED: METO5TAB25 PO (21:28)
[2017-01-05] MEDS ORDERED: LCTX PO (21:28)
[2017-01-05] MEDS ORDERED: ZINC20OI TOP (21:28)
[2017-01-05] MEDS ORDERED: ACET-1311 PO (21:28)
[2017-01-05] MEDS ORDERED: POTA1TAB97 PO (21:28)
[2017-01-05 21:32] LABS: BUN/CREATININE RATIO 27.7 (10-20); CREATININE 2.1 mg/dl (0.60-1.40); POTASSIUM 3.9 mmol/L (3.5-5.1)
[2017-01-05 21:36] LABS: ANISOCYTOSIS PRESENT; COMPLETE YES
[2017-01-05] MEDS ORDERED: GLUCOSE 40% GEL 15 GM TUBE PO STA (21:37)
--- NOTE | 2017-01-05 21:44 | DIAGNOSTIC IMAGING REPORT ---
SINGLE VIEW CHEST CLINICAL HISTORY: Dyspnea. FINDINGS: An AP, portable, upright chest radiograph is compared to study dated 12/21/2016. The examination is degraded by portable technique and patient rotation. The heart is markedly enlarged and there is atherosclerotic calcification of the thoracic aorta. There is pulmonary vascular congestion with evidence of interstitial edema. Small pleural effusions are identified and there is bibasilar consolidation. No pneumothorax is seen. The skeletal structures are osteopenic. The bony thorax is grossly intact. IMPRESSION: 1. Cardiomegaly with evidence of congestive failure and interstitial edema. 2. Small pleural effusions and bibasilar consolidation. This likely represents atelectasis. Correlate clinically for evidence of superimposed pneumonia. Electronically signed by: Sterling Balderas M.D. 01/05/2017 9:42 PM Dictated Date/Time: 01/05/2017 9:41 PM
[2017-01-05] MEDS ORDERED: GLUCOSE 40% GEL 15 GM TUBE ONE (21:45)
[2017-01-05 22:01] LABS: CALCIUM 8.4 mg/dl (8.5-10.1)
[2017-01-05] MEDS ORDERED: BISA10SU38 PR (23:32)
--- NOTE | 2017-01-05 23:56 | History and Physical ---
History & Physical Date & Time of Service: Jan 05, 2017 at 23:56 Chief Complaint: Lower Extremity Edema, Weight gain Primary Care Physician: Antoine Garcia M.D. History of Present Illness Source: family, clinic records, hospital records, fci (chart) 81 yo Male with PMH of P. Afib, Diverticulosis, DM type 2, Odontoid neck fracture, CKD stage 3, COPD, Diastolic/Systolic CHF was recently discharged on for acute respiratory failure. He was treated with antibiotic and bronchodilators for COD exacerbation; also he was given diuretics for heart failure. Due to his kidney function with his creatine btw 2 -2.5 there was some concerned bout to over diuresis him. He was discharged with lasix 20mg daily and metolazone 5 mg twice daily. he was sent as a direct admission from [facility] for increase in his weight and b/l LE edema associated with worsening SOB with minimal exertion and at rest. Pt gained almost 10 lbs in the last few days. he also complaint of orthopnea. His provider was told by Cardiology if pt's weight did not improve with effective diuresis in facility, he is to be readmitted for more aggressive diuresis management. Pt denies any chest pain, palpitation, dizziness, fever. he said that he is breathing seems to improved after received 40mg IV Lasix in the ER. Past Medical/Surgical History Medical Problems: (1) Anticoagulant long-term use Status: Chronic (2) Atrial fibrillation Status: Chronic (3) COPD (chronic obstructive pulmonary disease) Status: Chronic (4) Diabetes Status: Chronic (5) Dyslipidemia Status: Chronic (6) Hypertension Status: Chronic Surgical Problems: (1) History of total right hip arthroplasty Permanent Comment: 03/2004 Status: Resolved (2) Status post right knee replacement Permanent Comment: 01/2004 Status: Resolved Family History Diabetes mellitus Heart disease Hypertension Social History Smoking Status: Former Smoker Alcohol Use: none Drug Use: none Marital Status: Occupational Status: retired Multi-Drug Resistant Organisms History of MDRO: Yes Type of MDRO: MRSA Allergies Coded Allergies: No Known Allergies (Unverified , 01/05/17) Home Medications Scheduled Aspirin (Aspir-81), 1 TAB PO QAM Docusate Sodium (Dok), 100 MG PO BID Furosemide (Lasix), 20 MG PO QAM Insulin Aspart (Novolog Flexpen), 10 UNITS SC TIDM Insulin Glargine (Lantus), 20 UNITS SC QPM Ipratropium [place] (Nasal) (Ipratropium [place]), 1 DOSE INH Q6H Lactobacillus Acidophilus (Lactinex), 2 TAB PO BID Melatonin (Kp Melatonin), 3 MG PO HS Metolazone (Zaroxolyn), 5 MG PO 2XWK Polyethylene Glycol 3350 (Bulk (Polyethylene Glycol 3350), 17 GM PO QAM Potassium Chloride (K-Tab), 20 MEQ PO 2XWK Ranitidine (Zantac), 1 TAB PO BID Simvastatin (Zocor), 20 MG PO HS Trazodone Hcl (Trazodone), 50 MG PO HS Zinc Oxide (Topical) (Zinc Oxide), 1 APPLN TOP DIRECTED Scheduled PRN Acetaminophen (Tylenol), 650 MG PO Q4H PRN for Pain or Fever Albuterol Sulfate (Proventil Hfa), 2 PUFFS INH Q4H PRN for Shortness of Breath Magnesium Hydroxide (Milk Of Magnesia), 30 ML PO DAILY PRN for Constipation Ondansetron Hcl (Zofran), 4 MG PO Q8 PRN for Nausea Oxygen (Oxygen), 1 LITER NA PRN PRN for Shortness of Breath Miscellaneous Medications Bisacodyl (Dulcolax), 1 SUPP ME Review of Systems Constitutional: No chills, No fever, No sweats Eyes: No eye pain, No worsening of vision ENT: No nasal symptoms, No sore throat, No unusual epistaxis Respiratory: + dyspnea at rest, + dyspnea on exertion, + shortness of breath, No cough, No sputum Cardiovascular: + edema, + orthopnea, No chest pain, No palpitations Abdomen: No nausea, No pain, No vomiting Musculoskeletal: No calf pain Genitourinary - Male: No hematuria, No urinary retention Neurologic: No numbness/tingling, No weakness Psychiatric: + anxiety, No substance abuse Endocrine: No excessive thirst Hematologic / Lymphatic: No night sweats Integumentary: No itch, No rash Physical Exam Vital Signs Date Time Temp Pulse Resp B/P Pulse Ox O2 Delivery O2 Flow Rate FiO2 01/05/17 22:39 96 20 130/65 94 Nasal Cannula 01/05/17 21:45 89 18 121/74 96 Nasal Cannula 2.0 01/05/17 21:08 96 Nasal Cannula 2.0 01/05/17 20:38 91 01/05/17 20:19 36.8 88 24 115/73 96 Nasal Cannula 2.0 General Appearance: WD/WN, no apparent distress Head: normocephalic, atraumatic Eyes: normal inspection, PERRL, EOMI ENT: normal ENT inspection, hearing grossly normal Neck: supple, no JVD Respiratory/Chest: no accessory muscle use, + crackles Cardiovascular: + irregularly irregular Abdomen/GI: normal bowel sounds, non tender Back: normal inspection, no CVA tenderness Extremities/Musculoskelatal: no calf tenderness, + swelling Neurologic/Psych: no motor/sensory deficits, alert, normal mood/affect Skin: normal color, warm/dry Diagnostics Laboratory Results Results Past 24 Hours Test 01/05/17 21:00 01/05/17 21:05 Range/Units White Blood Count 7.93 4.8-10.8 K/uL Red Blood Count 4.22 4.7-6.1 M/uL Hemoglobin 11.7 14.0-18.0 g/dL Hematocrit 35.9 42-52 % Mean Corpuscular Volume 85.1 80-100 fL Mean Corpuscular Hemoglobin 27.7 25-34 pg Mean Corpuscular Hemoglobin Concent 32.6 32-36 g/dl Platelet Count 133 130-400 K/uL Mean Platelet Volume 10.3 7.4-10.4 fL Neutrophils (%) (Auto) 79.4 % Lymphocytes (%) (Auto) 6.6 % Monocytes (%) (Auto) 10.6 % Eosinophils (%) (Auto) 2.8 % Basophils (%) (Auto) 0.3 % Neutrophils # (Auto) 6.31 1.4-6.5 K/uL Lymphocytes # (Auto) 0.52 1.2-3.4 K/uL Monocytes # (Auto) 0.84 0.11-0.59 K/uL Eosinophils # (Auto) 0.22 0-0.5 K/uL Basophils # (Auto) 0.02 0-0.2 K/uL RDW Standard Deviation 62.1 36.4-46.3 fL RDW Coefficient of Variation 20.1 11.5-14.5 % Immature Granulocyte % (Auto) 0.3 % Immature Granulocyte # (Auto) 0.02 0.00-0.02 K/uL Anisocytosis PRESENT Prothrombin Time 12.0 9.0-12.0 SECONDS Prothromb Time International Ratio 1.1 0.9-1.1 Activated Partial Thromboplast Time 29.4 21.0-31.0 SECONDS Partial Thromboplastin Ratio 1.1 Sodium Level 140 136-145 mmol/L Potassium Level 3.9 3.5-5.1 mmol/L Chloride Level 103 98-107 mmol/L Carbon Dioxide Level 31 21-32 mmol/L Anion Gap 6.0 3-11 mmol/L Blood Urea Nitrogen 58 7-18 mg/dl Creatinine 2.10 0.60-1.40 mg/dl Est Creatinine Clear Calc Drug Dose 32.9 ml/min Estimated GFR () 32.7 Estimated GFR (Non- 28.3 BUN/Creatinine Ratio 27.7 10-20 Random Glucose 48 70-99 mg/dl Calcium Level 8.4 8.5-10.1 mg/dl Bedside Troponin I 0.030 0-0.045 ng/ml YB-Zbu-B-Type Natriuretic Peptide 3570 0-1800 pg/ml Diagnostic Radiology SINGLE VIEW CHEST CLINICAL HISTORY: Dyspnea. FINDINGS: An AP, portable, upright chest radiograph is compared to study dated 12/21/2016. The examination is degraded by portable technique and patient rotation. The heart is markedly enlarged and there is atherosclerotic calcification of the thoracic aorta. There is pulmonary vascular congestion with evidence of interstitial edema. Small pleural effusions are identified and there is bibasilar consolidation. No pneumothorax is seen. The skeletal structures are osteopenic. The bony thorax is grossly intact. IMPRESSION: 1. Cardiomegaly with evidence of congestive failure and interstitial edema. 2. Small pleural effusions and bibasilar consolidation. This likely represents atelectasis. Correlate clinically for evidence of superimposed pneumonia. Electronically signed by: Sterling Balderas M.D. 01/05/2017 9:42 PM Dictated Date/Time: 01/05/2017 9:41 PM Impression Assessment and Plan Worsening SOB Acute Diastolic/Systolic CHF exacerbation CXR showed congestive heart failure and interstitial edema. Received IV lasix 40mg in the ER Will repeat CXR in am will continue lasix 40 mg IV Will closely monitor BMP Monitor I/O Will consult cardiology Echo done 0n 12/18/16 showed: * Left ventricular systolic function is mildly reduced. * Ejection Fraction = 40-45%. * The right ventricle is moderately dilated. * The right ventricular systolic function is moderately reduced. * Flattened septum is consistent with RV pressure/volume overload. * Dilated inferior vena cava with reduced collapsability with sniff indicates an elevated right atrial pressure of 15 mmHg * 2D echo imaging and doppler interrogation of the aortic valve are discordant. Moderate aortic valve stenosis is suspected. * There is mild to moderate mitral regurgitation. * There is mild tricuspid regurgitation. B/L LE edema Related to CHF venous doppler of lower extremities negative for DVT Keep legs elevated and Follow low salt diet comsider compression stocking CKD stage 3 Creatine btw 2-2.5 baseline creatine on admission 2.1 stable COPD No exacerbation continue breathing treatment Atrial Fibrillation rate controlled had high grade AV block at [facility] and reverted after stopping digoxin not on anticoagulation secondary to question of occult GI bleed and anemia workup. Continue Aspirin DM2 Type 2 Most recent hba1c 7.7 (11/25/16) on Lantus and iss Odontoid neck fracture recent cervical surgery [place] [facility] and site was infected with MRSA Stable Dementia as per records No acute delirium DVT px heparin subq (will monitor h/h) CODE STATUS FULL CODE Level of Care Telemetry Resuscitation Status FULL RESUSCITATION VTE Prophylaxis VTE Risk Assessment Done? Y/N: Yes Risk Level: Moderate
[2017-01-06] VITALS (12 sets, daily range): BP systolic 108–131; BP diastolic 63–86; PULSE 77–97; TEMP 36.3–36.9; O2SAT 94–100; BMI 37.5; BMI 37.1
[2017-01-06] MEDS ORDERED: MAGNESIUM HYDROXIDE SUSP 30 ML UDC PO PRN
[2017-01-06] MEDS ORDERED: ONDANSETRON 4 MG TAB PO PRN
[2017-01-06] MEDS ORDERED: BUTT PASTE 171 APPLN/57 GM JAR TOP SCH
[2017-01-06] MEDS ORDERED: GLUCOSE 40% GEL 15 GM TUBE PO PRN ×2 (00:15→03:00)
[2017-01-06] MEDS ORDERED: GLUCOSE 10 TABS/TUBE PO PRN ×2 (00:15→03:00)
[2017-01-06] MEDS ORDERED: DEXTROSE 50% 50 ML SYR IV PRN ×2 (00:15→03:00)
[2017-01-06] MEDS ORDERED: GLUCAGON FOR INJ 1 MG VIAL SQ PRN ×2 (00:15→03:00)
--- NOTE | 2017-01-06 02:38 | EMERGENCY ROOM VISIT NOTE ---
History Report prepared by Tracy: Kaykay Lopez Under the Supervision of: Dr. Josiah Mike M.D. First contact with patient: 20:14 Chief Complaint: EDEMA TO EXTREMITY Stated Complaint: Lower Extremity Edema, Weight gain History of Present Illness The patient is a 81 year old male who presents to the Emergency Room with complaints of worsening edema to the bilateral lower extremities beginning a few weeks prior to arrival. The patient was discharged on December 23 and since then has been experiencing worsening edema. He notes slight pain to the lower legs as well. Since discharge he has been given Lasix shots with no improvement of symptoms. He has also gained approximately 8 pounds since December 23. The patient denies shortness of breath but family states he was complaining of shortness of breath earlier today. He denies fever, chest pain, abdominal pain, vomiting, or urinary symptoms. The patient has a history of kidney troubles and CHF. The patient is currently living at [facility]. Source of History: patient Onset: few weeks [employer] Position: leg (bilateral) Symptom Intensity: severe Quality: other (edema) Timing: worsening Modifying Factors (Relieving): other (lasix) Associated Symptoms: + SOB, No abdominal pain, No chest pain, No urinary symptoms Note: Patient is experiencing slight pain to bilateral legs. Review of Systems See HPI for pertinent positives & negatives. A total of 10 systems reviewed and were otherwise negative. Past Medical & Surgical Medical Problems: (1) Anticoagulant long-term use (2) Atrial fibrillation (3) Cellulitis (4) COPD (chronic obstructive pulmonary disease) (5) Diabetes (6) Dyslipidemia (7) Hypertension (8) Respiratory failure, acute (9) Shortness of breath Surgical Problems: (1) History of total right hip arthroplasty (2) Status post right knee replacement Social History Problems: (1) Dislocated hip (2) Hip dislocation, right Family History Diabetes mellitus Heart disease Hypertension Social History Smoking Status: Former Smoker Alcohol Use: none Drug Use: none Marital Status: Housing Status: alf Occupation Status: retired Current/Historical Medications Scheduled Aspirin (Aspir-81), 1 TAB PO QAM Docusate Sodium (Dok), 100 MG PO BID Furosemide (Lasix), 20 MG PO QAM Insulin Aspart (Novolog Flexpen), 10 UNITS SC TIDM Insulin Glargine (Lantus), 20 UNITS SC QPM Ipratropium [place] (Nasal) (Ipratropium [place]), 1 DOSE INH Q6H Lactobacillus Acidophilus (Lactinex), 2 TAB PO BID Melatonin (Kp Melatonin), 3 MG PO HS Metolazone (Zaroxolyn), 5 MG PO 2XWK Polyethylene Glycol 3350 (Bulk (Polyethylene Glycol 3350), 17 GM PO QAM Potassium Chloride (K-Tab), 20 MEQ PO 2XWK Ranitidine (Zantac), 1 TAB PO BID Simvastatin (Zocor), 20 MG PO HS Trazodone Hcl (Trazodone), 50 MG PO HS Zinc Oxide (Topical) (Zinc Oxide), 1 APPLN TOP DIRECTED Scheduled PRN Acetaminophen (Tylenol), 650 MG PO Q4H PRN for Pain or Fever Albuterol Sulfate (Proventil Hfa), 2 PUFFS INH Q4H PRN for Shortness of Breath Magnesium Hydroxide (Milk Of Magnesia), 30 ML PO DAILY PRN for Constipation Ondansetron Hcl (Zofran), 4 MG PO Q8 PRN for Nausea Oxygen (Oxygen), 1 LITER NA PRN PRN for Shortness of Breath Miscellaneous Medications Bisacodyl (Dulcolax), 1 SUPP [place] Allergies Coded Allergies: No Known Allergies (Unverified , 01/05/17) Physical Exam Vital Signs Date Time Temp Pulse Resp B/P Pulse Ox O2 Delivery O2 Flow Rate FiO2 01/05/17 22:39 96 20 130/65 94 Nasal Cannula 01/05/17 21:45 89 18 121/74 96 Nasal Cannula 2.0 01/05/17 21:08 96 Nasal Cannula 2.0 01/05/17 20:38 91 01/05/17 20:19 36.8 88 24 115/73 96 Nasal Cannula 2.0 Physical Exam Constitutional: Vital signs reviewed. Eyes: Pupils are equal round reactive to light. Conjunctiva are noninjected. ENT: Pharynx is clear without erythema or exudate. Mucous membranes are moist. Neck supple without meningeal signs. Respiratory: Bilateral mild wheezing and rhonchi. Breath sounds are equal bilaterally. Cardiovascular: Regular rate and rhythm. No rubs or gallops. GI: Soft, nondistended and nontender. Bowel sounds are present. Musculoskeletal: Bilateral pitting edema to the lower extremities. Integumentary: No cyanosis. Neurological: The patient is awake and alert. No focal deficits. Psychiatric: Normal affect. Medical Decision & Procedures ER Provider Diagnostic Interpretation: X-ray results as stated below per interpretation by me and the radiologist: SINGLE VIEW CHEST CLINICAL HISTORY: Dyspnea. FINDINGS: An AP, portable, upright chest radiograph is compared to study dated 12/21/2016. The examination is degraded by portable technique and patient rotation. The heart is markedly enlarged and there is atherosclerotic calcification of the thoracic aorta. There is pulmonary vascular congestion with evidence of interstitial edema. Small pleural effusions are identified and there is bibasilar consolidation. No pneumothorax is seen. The skeletal structures are osteopenic. The bony thorax is grossly intact. IMPRESSION: 1. Cardiomegaly with evidence of congestive failure and interstitial edema. 2. Small pleural effusions and bibasilar consolidation. This likely represents atelectasis. Correlate clinically for evidence of superimposed pneumonia. Electronically signed by: Sterling Balderas M.D. 01/05/2017 9:42 PM Dictated Date/Time: 01/05/2017 9:41 PM Laboratory Results 01/05/17 21:00 Red Blood Count 4.22, Mean Corpuscular Volume 85.1, Mean Corpuscular Hemoglobin 27.7, Mean Corpuscular Hemoglobin Concent 32.6, Mean Platelet Volume 10.3, Neutrophils (%) (Auto) 79.4, Lymphocytes (%) (Auto) 6.6, Monocytes (%) (Auto) 10.6, Eosinophils (%) (Auto) 2.8, Basophils (%) (Auto) 0.3, Neutrophils # (Auto ) 6.31, Lymphocytes # (Auto) 0.52, Monocytes # (Auto) 0.84, Eosinophils # (Auto ) 0.22, Basophils # (Auto) 0.02 01/05/17 21:00 Test 01/05/17 21:00 01/05/17 21:05 01/05/17 22:36 White Blood Count 7.93 K/uL (4.8-10.8) Red Blood Count 4.22 M/uL (4.7-6.1) Hemoglobin 11.7 g/dL (14.0-18.0) Hematocrit 35.9 % (42-52) Mean Corpuscular Volume 85.1 fL (80-100) Mean Corpuscular Hemoglobin 27.7 pg (25-34) Mean Corpuscular Hemoglobin Concent 32.6 g/dl (32-36) Platelet Count 133 K/uL (130-400) Mean Platelet Volume 10.3 fL (7.4-10.4) Neutrophils (%) (Auto) 79.4 % Lymphocytes (%) (Auto) 6.6 % Monocytes (%) (Auto) 10.6 % Eosinophils (%) (Auto) 2.8 % Basophils (%) (Auto) 0.3 % Neutrophils # (Auto) 6.31 K/uL (1.4-6.5) Lymphocytes # (Auto) 0.52 K/uL (1.2-3.4) Monocytes # (Auto) 0.84 K/uL (0.11-0.59) Eosinophils # (Auto) 0.22 K/uL (0-0.5) Basophils # (Auto) 0.02 K/uL (0-0.2) RDW Standard Deviation 62.1 fL (36.4-46.3) RDW Coefficient of Variation 20.1 % (11.5-14.5) Immature Granulocyte % (Auto) 0.3 % Immature Granulocyte # (Auto) 0.02 K/uL (0.00-0.02) Anisocytosis PRESENT Prothrombin Time 12.0 SECONDS (9.0-12.0) Prothromb Time International Ratio 1.1 (0.9-1.1) Activated Partial Thromboplast Time 29.4 SECONDS (21.0-31.0) Partial Thromboplastin Ratio 1.1 Anion Gap 6.0 mmol/L (3-11) Est Creatinine Clear Calc Drug Dose 32.9 ml/min Estimated GFR () 32.7 Estimated GFR (Non- 28.3 BUN/Creatinine Ratio 27.7 (10-20) Calcium Level 8.4 mg/dl (8.5-10.1) Bedside Troponin I 0.030 ng/ml (0-0.045) BG-Afs-N-Type Natriuretic Peptide 3570 pg/ml (0-1800) Bedside Glucose 87 mg/dl (70-99) Laboratory results as reviewed by me. Medications Administered Medications (Trade) Dose Ordered Sig/Claribel Route Start Time Stop Time Status Last Admin Dose Admin Furosemide (Lasix Inj) 40 mg NOW STAT IV 01/05/17 20:22 01/05/17 20:23 DC 01/05/17 20:59 40 MG Glucose (Glucose 40% Gel) 15 gm NOW STAT PO 01/05/17 21:37 01/05/17 21:38 DC 01/05/17 21:42 15 GM ED Course 2016: The patient was evaluated in room A10. A complete history and physical exam was performed. 2021: Lasix Inj 40 mg IV. 2135: The patient's blood sugar is in the 40s. He states that he feels thirsty but otherwise is well. He thinks he ate earlier today but is unsure. He will be given oral glucose and a food tray. 2007: I discussed the test results with the patient and his family. The daughter says she thinks the patient was sent to the ED to be admitted. 2136: Glucose 40% Gel 15 gm PO. 2231: I spoke with Dr. Rice of [facility]. We discussed the patient and his results. The patient will be further evaluated by Dr. Rice - [facility]. 2257: The patient's blood sugar is now 87. He is being evaluated by the hospitalist at this time. Medical Decision This is an 81-year-old male who presents with lower extremity edema. Differential diagnosis includes CHF, dependent edema, nephrotic syndrome, hypoalbuminemia, anasarca, DVT. I did perform a limited focused review of portions of the patient's old chart on the electronic medical record. The patient was hospitalized December 18 for respiratory failure and atrial fibrillation. Bilateral lower extremity Doppler negative for DVT on December 23. The patient was discharged on Clindamycin and Prednisone. He has a history of COPD and diastolic heart failure. I did evaluate the patient as noted above. The patient has a history of CHF. He has had increasing dependent edema since he was discharged. He is on Lasix and has been receiving IV Lasix intermittently at the alf. He denies shortness of breath but his family stated that he complained of shortness breath earlier. He has had approximately 10 pounds of weight gain since he was discharged. IV access was established. The patient was placed on a continuous it support engineer. I did order and personally review the patient's 12- lead EKG and chest x-ray as described above. He has CHF on chest x-ray. I did order and review the patient's blood work as noted in the electronic medical record. BNP is elevated. His glucose is low. He was given oral glucose solution as well as something to eat and drink. He did have a meal here and his blood sugar did improve. I did treat the patient with IV Lasix. I did discuss the test results with the patient and his family. They state that he was sent here for admission as they could not help him at [place]. I did therefore discussed the case with the hospitalist and adult protective caseworker for further evaluation. Consults Time Called: 2229 Consulting Physician: Dr. Krystal Garduno [facility] Returned Call: [phone] Rice of [facility]. We discussed the patient and his results. The patient will be further evaluated by Dr. Krystal COBOS. Impression Primary Impression: CHF exacerbation Additional Impressions: Dependent edema Hypoglycemia Scribe Attestation The scribe's documentation has been prepared under my direct and personally reviewed by me in its entirety. I confirm that the note above accurately reflects all work, treatment, procedures, and medical decision making performed by me. Departure Information Dispostion Being Evaluated By Hospitalist Referrals Mimi Juarez P.A. (PCP) Problem Qualifiers Primary Impression: CHF exacerbation Congestive heart failure type: unspecified congestive heart failure type Qualified Codes: I50.9 - Heart failure, unspecified
[2017-01-06 02:51] LABS: MEAN CELL VOLUME 86.4 fL (80-100); MEAN CORPUSCULAR HEMOGLOBIN 28.1 pg (25-34); MEAN CORPUSCULAR HGB CONC 32.6 g/dl (32-36); PLATELET COUNT 112 K/uL (130-400); RED BLOOD COUNT 4.05 M/uL (4.7-6.1); WHITE BLOOD COUNT 8.12 K/uL (4.8-10.8)
[2017-01-06] MEDS: ALBUTEROL HFA 8 GM INHALER INH PRN ×2 (02:51→23:38)
[2017-01-06 03:07] LABS: BLOOD UREA NITROGEN 54 mg/dl (7-18); BUN/CREATININE RATIO 25.8 (10-20); CALCIUM 8.4 mg/dl (8.5-10.1); CARBON DIOXIDE 33 mmol/L (21-32); CHLORIDE 101 mmol/L (98-107); GLUCOSE 221 mg/dl (70-99); MAGNESIUM 2.1 mg/dl (1.8-2.4); POTASSIUM 4.2 mmol/L (3.5-5.1); SODIUM 139 mmol/L (136-145)
[2017-01-06] MEDS: ALBUT/IPRATROP 3MG/0.5MG NEB 3 ML VIAL INH SCH ×5 (04:02→19:48)
[2017-01-06] MEDS ORDERED: FUROSEMIDE INJ 20 MG in SYRINGE 0 ML IV STA (05:08)
--- NOTE | 2017-01-06 07:48 | DIAGNOSTIC IMAGING REPORT ---
CHEST ONE VIEW PORTABLE CLINICAL HISTORY: Congestive failure COMPARISON STUDY: 01/05/2017 FINDINGS: The heart remains enlarged. There are persistent bilateral pulmonary airspace opacities. Small pleural effusions are suspected.[ There is radiographic evidence of pulmonary vascular congestion. IMPRESSION: Stable findings. Persistent cardiomegaly, pulmonary vascular congestion, and bilateral pulmonary airspace opacities. Electronically signed by: Kevin Dean M.D. 01/06/2017 7:46 AM Dictated Date/Time: 01/06/2017 7:45 AM
[2017-01-06] MEDS: INSULIN ASPART 100 UNITS/ML 3 ML PEN SC SCH ×4 (08:46→21:00)
[2017-01-06] MEDS: POLYETHYLENE (MIRALAX) 17 GM PACK PO SCH (08:47)
[2017-01-06] MEDS: ASPIRIN 81 MG ECTAB PO SCH (08:47)
[2017-01-06] MEDS: LACTOBACILLUS ACIDOPHILUS (FLORANEX) TAB PO SCH ×2 (08:47→22:04)
[2017-01-06] MEDS: RANITIDINE HCL 150 MG TAB PO SCH ×2 (08:47→21:14)
[2017-01-06] MEDS: HEPARIN SOD 5000 UNIT/0.5 ML CARP SQ SCH ×2 (08:50→21:12)
[2017-01-06] MEDS ORDERED: FUROSEMIDE INJ 20 MG in SYRINGE 0 ML IV SCH (09:00)
[2017-01-06] MEDS ORDERED: FUROSEMIDE 20 MG TAB PO SCH (09:00)
[2017-01-06] MEDS ORDERED: METOLAZONE 2.5 MG TAB PO ONE (09:00)
--- NOTE | 2017-01-06 09:09 | CARDIOLOGY CONSULTATION ---
DATE OF CONSULTATION: 01/06/2017 This is a consultation for the hospitalist service. REASON FOR CONSULTATION: Heart failure. HISTORY: This is an 81-year-old gentleman who I first saw last week at the [facility] in [place]. He is a resident at [facility]. He is a poor historian. In brief, in October he fell and sustained an odontoid fracture of C2 which was treated at [facility]. He was then admitted to [facility] where he was subsequently transferred to [facility] with respiratory failure which was felt to be multifactorial. He has a history of COPD as well as chronic diastolic/systolic heart failure with moderate aortic stenosis and a history of chronic atrial fibrillation. He has a previous history of smoking. An echocardiogram completed at the hospital indicates estimated left ventricular ejection fraction of 40-45% with evidence of cor pulmonale due to pulmonary hypertension and volume overload. He was treated with antibiotics and bronchodilators for his COPD. He was also given diuretics for his heart failure, but there was concern because of some renal insufficiency and he was most likely underdiuresed. They transferred him back to [facility] and then I saw him last week in clinic and he was massively volume overloaded. He had gained 10 or 15 pounds since his discharge. In addition to his loop diuretic, I added Zaroxolyn 5 mg every other day to his medical regimen and asked for close followup the following week with our clinic. I got a call from the PA at [facility] yesterday who stated that the patient had worsened and was still volume overloaded. He was then transferred from [facility] for readmission. It appears like he diuresed about 1500 mL last night. The patient is alert and sitting in a chair. He states that last night he did not feel well because he was short of breath, but this morning he is able to eat breakfast and is comfortable. ALLERGIES: No known medical allergies. PAST MEDICAL HISTORY: Per the history of chief complaint. In addition, the patient is a diabetic and has dyslipidemia and has been treated for hypertension. I also believe that there is a component of dementia. FAMILY MEDICAL HISTORY: Noncontributory. SOCIAL HISTORY: The patient has a longstanding history of cigarette smoking but quit. He is and retired. REVIEW OF SYSTEMS: Unobtainable. PHYSICAL EXAMINATION: GENERAL: He is alert and conversant, sitting comfortably in a chair. HEENT: He is normocephalic. Pupils are equal and reactive to light. Extraocular muscles are intact bilaterally. NECK: The neck veins are flat. Carotids have good upstrokes bilaterally without bruits. Thyroid is nonpalpable. RESPIRATORY: There are rales and rhonchi throughout the lung giron. CARDIOVASCULAR: Heart has an irregular rhythm. There is an intermittent S3. GASTROINTESTINAL: Abdomen is soft, nontender, without organomegaly. EXTREMITIES: Have massive edema to the thighs bilaterally. NEUROLOGIC: Grossly intact. SKIN: Warm to touch. LYMPH NODES: Negative to palpation. IMPRESSION: 1. Acute on chronic systolic heart failure as well as cor pulmonale. 2. Pulmonary hypertension. 3. Chronic obstructive pulmonary disease. 4. Chronic renal insufficiency. 5. Diabetes mellitus. RECOMMENDATIONS: I think the patient needs good diuretic management to improve his symptoms. I will repeat an echocardiogram to evaluate his cardiac function. I think we should also consider nephrology consult to help with diuretic management and possibly a pulmonary consult to help with the patient's COPD. Thank you.
[2017-01-06] MEDS: FUROSEMIDE INJ 40 MG in SYRINGE 0 ML IV SCH ×2 (10:22→16:56)
--- NOTE | 2017-01-06 11:02 | NEPHROLOGY CONSULTATION ---
DATE OF CONSULTATION: 01/06/2017 ATTENDING OF RECORD: Dr. Liz. REASON FOR CONSULTATION: CKD with volume overload. HISTORY OF PRESENT ILLNESS: This is an 81-year-old male with significant history of an odontoid neck fracture as well as type 2 diabetes, COPD, both diastolic and systolic heart failure, and paroxysmal AFib, who was recently in the hospital with shortness of breath and volume overload. The patient was sent to [facility] on appropriate diuretics. The patient quickly gained 10 pounds and started to have worsening shortness of breath and was readmitted and started on IV diuretics. The patient is comfortable. Appetite is good. Complaining of itching on his arms and states that he is short of breath. PAST MEDICAL HISTORY: Paroxysmal AFib, COPD, diabetes, hypertension, hyperlipidemia, CKD stage IV with baseline creatinine in the low 2s, history of odontoid neck fracture requiring prolonged hospitalization in [place]. PAST SURGICAL HISTORY: Right knee replacement, right hip arthroplasty. FAMILY HISTORY: Significant for diabetes. SOCIAL HISTORY: Former smoker. No alcohol, no drugs. Currently resides at [facility]. CURRENT MEDICATIONS: Lantus 20 units at night, Zocor 20 mg at night, trazodone 50 mg at night, aspirin 81 mg daily, Zantac 150 mg p.o. b.i.d., Floranex 2 tabs p.o. b.i.d., MiraLax 17 grams daily, heparin 5000 units subcu q. 12, Lasix 40 mg IV b.i.d. REVIEW OF SYSTEMS: The patient denies any fevers or chills. No chest pain. Positive pruritus on the arms. Positive shortness of breath. Denies anorexia. Denies constipation. Denies blurry vision or dysphagia. All other review of systems otherwise negative. PHYSICAL EXAMINATION: VITAL SIGNS: Temperature 36.5, pulse 91, respiratory rate is 20, blood pressure is 115/63, satting 98% on 2 liters. GENERAL: Awake, alert, oriented x2. EYES: No scleral icterus. ENT: Moist mucous membranes. NECK: Supple. PULMONARY: Basilar rales with wheeze. CARDIAC: Irregularly irregular. ABDOMEN: Bowel sounds positive, soft, nontender. EXTREMITIES: +2 to 3 pitting edema. NEUROLOGICAL: Nonfocal. DERMATOLOGIC: No rash or ulcers noted. LABORATORY DATA: White count is 8, H\T\H 11 and 35, platelet count is 112. INR is 1.1. Sodium level is 139, potassium 4.2, chloride is 101, bicarb is 33, BUN is 54, creatinine is 2.1, glucose 208, calcium is 8.4, mag is 2.1. Troponin 0.028. ProBNP 3570. Creatinine earlier in the month was in the 2.5-2.6 range. Chest x-ray this morning shows persistent cardiomegaly, pulmonary vascular congestion, and bilateral pulmonary airspace opacities. IMPRESSION AND PLAN: 1. Chronic kidney disease stage IV with creatinine in the hospital during previous admission in the 2.5-2.6 range and comes in with worsening volume overload with a creatinine in the low 2s. Feel baseline creatinine should be in the 2.5-2.6 range and he needs appropriately diuresed to help with his breathing status. Unfortunately, creatinine may worsen, however, need to optimize lungs. One consideration would be to add albumin with the Lasix to help improve blood flow and reabsorb the third space fluid. However, albumin is truly only beneficial with the hypotensive patients. Given the fact that the blood pressure is in the 120s, would continue the Lasix solely. I greatly appreciate primary hospitalist as well as cardiology's help. The patient did diurese aggressively with the 40 of IV Lasix, 1800 mL. So the patient is responding favorably to the Lasix and okay with the creatinine trending up with a goal of having a creatinine around 2.5-2.7 and hopefully no worse and trying to maintain on an appropriate oral regimen as an outpatient, realizing that the creatinine will be worse but is once again medically necessary. Case was discussed with cardiology, Dr. Wei, who is in agreement with the plan. I appreciate consultation. RAYMOND
--- NOTE | 2017-01-06 12:48 | Progress Note ---
Internal Med Progress Note Date of Service: Jan 06, 2017. Provider Documentation: SUBJECTIVE: The patient was seen and examined Admitted with SOB ,no CP,Palpitation Feels a lot better Denies any symptoms today OBJECTIVE: Vital Signs-as noted below Exam: General-No distress at rest Eyes-normal ENT-normal Neck-Supple Lungs-Decreased breath sound bilaterally Heart-Regular,no murmur appreciated Abdomen-Benign,no masses,bowel sound present Extremities-1+ edema bilaterally Neuro-AA Pleasantly confused No focal Neuro deficit Lab data as noted below. ASSESSMENT & PLAN: Acute on Chronic Systolic CHF Worsening SOB CXR showed congestive heart failure and interstitial edema. Received IV Lasix in ER Aggressive Diuresis Appreciate cardiology input Echo done 0n 12/18/16 showed: * Left ventricular systolic function is mildly reduced. * Ejection Fraction = 40-45%. * The right ventricle is moderately dilated. * The right ventricular systolic function is moderately reduced. * Flattened septum is consistent with RV pressure/volume overload. * Dilated inferior vena cava with reduced collapsability with sniff indicates an elevated right atrial pressure of 15 mmHg * 2D echo imaging and doppler interrogation of the aortic valve are discordant. Moderate aortic valve stenosis is suspected. * There is mild to moderate mitral regurgitation. * There is mild tricuspid regurgitation. Repeat ECHO COPD No exacerbation but complicating CHF with Right sided heart failure continue breathing treatment And Diuretics May need Pulmonary involvement a swell B/L LE edema-secondary rainer CHF Venous doppler of lower extremities negative for DVT Keep legs elevated and Follow low salt diet Consider compression stocking CKD stage 3 Creatine btw 2-2.5 baseline creatine on admission 2.1 May get worse with Diuresis Appreciate Nephrology input Atrial Fibrillation rate controlled had high grade AV block at [facility] and reverted after stopping digoxin not on anticoagulation secondary to question of occult GI bleed and anemia workup. Continue Aspirin DM2 Type 2 Most recent hba1c 7.7 (11/25/16) on Lantus and iss Odontoid neck fracture recent cervical surgery at [facility] and site was infected with MRSA Stable Dementia as per records No acute delirium DVT px heparin subq (will monitor h/h) CODE STATUS FULL CODE Vital Signs: Date Time Temp Pulse Resp B/P Pulse Ox O2 Delivery O2 Flow Rate FiO2 01/06/17 11:41 36.8 77 20 120/74 95 01/06/17 09:05 36.5 91 20 115/63 98 01/06/17 07:50 92 18 98 Nasal Cannula 2.0 01/06/17 04:02 97 18 97 Nasal Cannula 2.0 01/06/17 04:00 95 Nasal Cannula 2.0 01/06/17 03:40 36.3 90 23 108/75 95 Nasal Cannula 2.0 01/06/17 00:13 36.4 87 24 120/77 98 Nasal Cannula 2.0 01/05/17 22:39 96 20 130/65 94 Nasal Cannula 01/05/17 21:45 89 18 121/74 96 Nasal Cannula 2.0 01/05/17 21:08 96 Nasal Cannula 2.0 01/05/17 20:38 91 01/05/17 20:19 36.8 88 24 115/73 96 Nasal Cannula 2.0 Lab Results: Results Past 24 Hours Test 01/05/17 21:00 01/05/17 21:05 01/05/17 21:53 01/05/17 22:36 Range/Units White Blood Count 7.93 4.8-10.8 K/uL Red Blood Count 4.22 4.7-6.1 M/uL Hemoglobin 11.7 14.0-18.0 g/dL Hematocrit 35.9 42-52 % Mean Corpuscular Volume 85.1 80-100 fL Mean Corpuscular Hemoglobin 27.7 25-34 pg Mean Corpuscular Hemoglobin Concent 32.6 32-36 g/dl Platelet Count 133 130-400 K/uL Mean Platelet Volume 10.3 7.4-10.4 fL Neutrophils (%) (Auto) 79.4 % Lymphocytes (%) (Auto) 6.6 % Monocytes (%) (Auto) 10.6 % Eosinophils (%) (Auto) 2.8 % Basophils (%) (Auto) 0.3 % Neutrophils # (Auto) 6.31 1.4-6.5 K/uL Lymphocytes # (Auto) 0.52 1.2-3.4 K/uL Monocytes # (Auto) 0.84 0.11-0.59 K/uL Eosinophils # (Auto) 0.22 0-0.5 K/uL Basophils # (Auto) 0.02 0-0.2 K/uL RDW Standard Deviation 62.1 36.4-46.3 fL RDW Coefficient of Variation 20.1 11.5-14.5 % Immature Granulocyte % (Auto) 0.3 % Immature Granulocyte # (Auto) 0.02 0.00-0.02 K/uL Anisocytosis PRESENT Prothrombin Time 12.0 9.0-12.0 SECONDS Prothromb Time International Ratio 1.1 0.9-1.1 Activated Partial Thromboplast Time 29.4 21.0-31.0 SECONDS Partial Thromboplastin Ratio 1.1 Sodium Level 140 136-145 mmol/L Potassium Level 3.9 3.5-5.1 mmol/L Chloride Level 103 98-107 mmol/L Carbon Dioxide Level 31 21-32 mmol/L Anion Gap 6.0 3-11 mmol/L Blood Urea Nitrogen 58 7-18 mg/dl Creatinine 2.10 0.60-1.40 mg/dl Est Creatinine Clear Calc Drug Dose 32.9 ml/min Estimated GFR () 32.7 Estimated GFR (Non- 28.3 BUN/Creatinine Ratio 27.7 10-20 Random Glucose 48 70-99 mg/dl Calcium Level 8.4 8.5-10.1 mg/dl Bedside Troponin I 0.030 0-0.045 ng/ml UY-[place]au-R-Type Natriuretic Peptide 3570 0-1800 pg/ml Bedside Glucose 55 87 70-99 mg/dl Test 01/06/17 02:40 01/06/17 06:23 01/06/17 09:00 01/06/17 09:18 Range/Units White Blood Count 8.12 4.8-10.8 K/uL Red Blood Count 4.05 4.7-6.1 M/uL Hemoglobin 11.4 14.0-18.0 g/dL Hematocrit 35.0 42-52 % Mean Corpuscular Volume 86.4 80-100 fL Mean Corpuscular Hemoglobin 28.1 25-34 pg Mean Corpuscular Hemoglobin Concent 32.6 32-36 g/dl RDW Standard Deviation 63.7 36.4-46.3 fL RDW Coefficient of Variation 20.1 11.5-14.5 % Platelet Count 112 130-400 K/uL Mean Platelet Volume 10.0 7.4-10.4 fL Sodium Level 139 136-145 mmol/L Potassium Level 4.2 3.5-5.1 mmol/L Chloride Level 101 98-107 mmol/L Carbon Dioxide Level 33 21-32 mmol/L Anion Gap 5.0 3-11 mmol/L Blood Urea Nitrogen 54 7-18 mg/dl Creatinine 2.10 0.60-1.40 mg/dl Est Creatinine Clear Calc Drug Dose 32.3 ml/min Estimated GFR () 32.7 Estimated GFR (Non- 28.3 BUN/Creatinine Ratio 25.8 10-20 Random Glucose 221 70-99 mg/dl Calcium Level 8.4 8.5-10.1 mg/dl Magnesium Level 2.1 1.8-2.4 mg/dl Creatine Kinase MB 2.5 2.6 0.5-3.6 ng/ml Creatine Kinase MB Ratio 0-3.0 Troponin I 0.028 0.038 0-0.045 ng/ml Bedside Glucose 208 70-99 mg/dl Test 01/06/17 11:06 Range/Units Bedside Glucose 159 70-99 mg/dl
--- NOTE | 2017-01-06 17:41 | ECHOCARDIOGRAM REPORT ---
*NOTICE TO RECEIVING REPUBLICAN AGENCY This information is strictly Confidential and protected under [place] law. [place] law prohibits you from making any further disclosure of this information unless further disclosure is expressly permitted by the written consent of the person to whom it pertains or is authorized by law. A general authorization for the release of medical or other information is not sufficient for this purpose. Hospital accepts no responsibility if the information is made available to any other person, INCLUDING THE PATIENT. Interpretation Summary * Name: CRISTINA QUIROZ Study Date: 01/06/2017 09:40 AM BP: 115/63 mmHg * Patient Location: C.2T\S\E219\S\1 HR: 91 * : 1935 (M/d/yyyy) Gender: Male Height: 68 in * Age: 81 yrs Ethnicity: CA Weight: 244 lb * Ordering Physician: Elmer Wei * Referring Physician: Mimi Juarez * Performed By: Nimco Biggs RDCS * * Reason For Study: CHF * BSA: 2.2 m2 * -- Conclusions -- * The left ventricle is grossly normal size. * Ejection Fraction = 40-45%. * Flattened septum is consistent with RV pressure/volume overload. * The right ventricle is moderate to severely dilated. * The right ventricular systolic function is moderate to severely reduced. * The left atrium is severely dilated. * The right atrium is severely dilated. * Moderate valvular aortic stenosis. * There is mild mitral regurgitation. * There is mild to moderate tricuspid regurgitation. Procedure Details * A complete two-dimensional transthoracic echocardiogram was performed (2D, M-mode, Doppler and color flow Doppler). Left Ventricle * The left ventricle is grossly normal size. * There is mild concentric left ventricular hypertrophy. * Ejection Fraction = 40-45%. * Flattened septum is consistent with RV pressure/volume overload. Right Ventricle * The right ventricle is moderate to severely dilated. * The right ventricular systolic function is moderate to severely reduced. Atria * The left atrium is severely dilated. * The right atrium is severely dilated. Mitral Valve * There is moderate mitral annular calcification. * There is mild mitral regurgitation. Tricuspid Valve * The tricuspid valve is not well visualized. * There is mild to moderate tricuspid regurgitation. Aortic Valve * The aortic valve is tricuspid. The leaflet thickness if normal. There is no aortic stenosis, and no significant insufficiency. * Moderate valvular aortic stenosis. Pericardium/Pleural * There is no pericardial effusion. Great Vessels * The inferior vena cava is moderately dilated. MMode 2D Measurements and Calculations IVSd 0.97 cm LVIDd 4.8 cm LVIDs 3.7 cm LVPWd 1.1 cm IVS/LVPW 0.88 FS 22.7 % EDV(Teich) 108.5 ml ESV(Teich) 59.0 ml EF(Teich) 45.6 % EDV(cubed) 111.8 ml ESV(cubed) 51.6 ml EF(cubed) 53.8 % LV mass(C)d 178.6 grams LV mass(C)dI 80.3 grams/m\S\2 CO(Teich) 4.8 l/min CI(Teich) 2.2 l/min/m\S\2 SV(Teich) 49.4 ml SI(Teich) 22.2 ml/m\S\2 CO(cubed) 5.8 l/min CI(cubed) 2.6 l/min/m\S\2 SV(cubed) 60.2 ml SI(cubed) 27.1 ml/m\S\2 Ao root diam 3.9 cm Ao root area 12.2 cm\S\2 ACS 1.0 cm LA dimension 4.4 cm asc Aorta Diam 3.7 cm LA/Ao 1.1 LVOT diam 2.0 cm LVOT area 3.1 cm\S\2 LVAd ap4 20.8 cm\S\2 LVLd ap4 7.0 cm EDV(MOD-sp4) 50.3 ml LVAs ap4 14.4 cm\S\2 LVLs ap4 6.3 cm ESV(MOD-sp4) 27.9 ml EF(MOD-sp4) 44.5 % LVAd ap2 19.7 cm\S\2 LVLd ap2 7.4 cm EDV(MOD-sp2) 44.7 ml LVAs ap2 14.5 cm\S\2 LVLs ap2 6.8 cm ESV(MOD-sp2) 26.5 ml EF(MOD-sp2) 40.7 % CO(MOD-sp4) 2.2 l/min CI(MOD-sp4) 0.98 l/min/m\S\2 SV(MOD-sp4) 22.4 ml SI(MOD-sp4) 10.1 ml/m\S\2 CO(MOD-sp2) 1.8 l/min CI(MOD-sp2) 0.79 l/min/m\S\2 SV(MOD-sp2) 18.2 ml SI(MOD-sp2) 8.2 ml/m\S\2 Doppler Measurements and Calculations MV E max richard 112.5 cm/sec MV dec time 0.19 sec Ao V2 max 184.6 cm/sec Ao max PG 13.6 mmHg Ao max PG (full) 11.9 mmHg Ao V2 mean 130.3 cm/sec Ao mean PG 7.5 mmHg Ao V2 VTI 31.6 cm EAMON(V,A) 1.1 cm\S\2 EAMON(V,D) 1.1 cm\S\2 LV V1 max PG 1.7 mmHg LV V1 max 65.0 cm/sec MR max richard 411.7 cm/sec MR max PG 67.8 mmHg MR mean richard 350.6 cm/sec MR mean PG 52.7 mmHg MR VTI 112.3 cm SV(Ao) 387.3 ml SI(Ao) 174.1 ml/m\S\2 PA acc slope 842.8 cm/sec\S\2 PA acc time 0.06 sec TR max richard 233.2 cm/sec PA pr(Accel) 52.1 mmHg
[2017-01-06] MEDS ORDERED: INSULIN GLARGINE SOLOSTAR 100 UNITS/ML 3 ML PEN SC SCH (21:00)
[2017-01-06] MEDS ORDERED: NON-FORMULARY MEDICATION (Melatonin (Kp Melatonin) 3 MG) PO SCH (21:00)
[2017-01-06] MEDS: SIMVASTATIN 20 MG TAB PO SCH (21:14)
[2017-01-06] MEDS: TRAZODONE HCL 50 MG TAB PO SCH (21:14)
[2017-01-07] VITALS (13 sets, daily range): BP systolic 115–139; BP diastolic 69–81; PULSE 74–96; TEMP 36.2–36.9; O2SAT 90–98; Ht 172.7 cm; Wt 103.2 kg
[2017-01-07] MEDS: FUROSEMIDE INJ 40 MG in SYRINGE 0 ML IV SCH ×2 (05:38→16:37)
[2017-01-07] MEDS: ALBUT/IPRATROP 3MG/0.5MG NEB 3 ML VIAL INH SCH ×4 (07:06→19:50)
[2017-01-07 07:52] LABS: BUN/CREATININE RATIO 30.5 (10-20); CALCIUM 8.6 mg/dl (8.5-10.1); CREATININE 1.7 mg/dl (0.60-1.40); PHOSPHORUS 3.5 mg/dl (2.5-4.9); POTASSIUM 3.4 mmol/L (3.5-5.1)
[2017-01-07] MEDS: INSULIN ASPART 100 UNITS/ML 3 ML PEN SC SCH ×4 (08:08→20:10)
[2017-01-07] MEDS: ASPIRIN 81 MG ECTAB PO SCH (08:11)
[2017-01-07] MEDS: RANITIDINE HCL 150 MG TAB PO SCH ×2 (08:11→20:54)
[2017-01-07] MEDS: LACTOBACILLUS ACIDOPHILUS (FLORANEX) TAB PO SCH ×2 (08:11→20:54)
[2017-01-07] MEDS: POLYETHYLENE (MIRALAX) 17 GM PACK PO SCH (08:12)
[2017-01-07] MEDS: HEPARIN SOD 5000 UNIT/0.5 ML CARP SQ SCH ×2 (08:13→20:57)
[2017-01-07] MEDS ORDERED: POTASSIUM CHLORIDE 10 MEQ TABCR PO ONE ×2 (10:00→16:45)
--- NOTE | 2017-01-07 10:05 | PROGRESS NOTE ---
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 He was admitted here and thus far he has lost about 10 kilograms of fluid weight. He is demented and has no complaints. OBJECTIVE: GENERAL: He is alert but confused. VITAL SIGNS: Pulse is irregular at 86, blood pressure is 140/70, temperature is 36.8. HEENT: He is normocephalic. Pupils are equal and reactive to light. Extraocular muscles are intact bilaterally. NECK: The neck veins are flat. Carotids have good upstrokes bilaterally without bruits. Thyroid is nonpalpable. RESPIRATORY: Breath sounds are clear to auscultation bilaterally. GASTROINTESTINAL: Abdomen is soft, nontender, without organomegaly. EXTREMITIES: Have edema to the mid calf bilaterally. NEUROLOGIC: Grossly intact. IMPRESSION: 1. Volume overload. 2. Chronic obstructive pulmonary disease with right heart failure. 3. Acute on chronic systolic/diastolic heart failure. 4. Renal insufficiency. RECOMMENDATIONS: I would continue the patient's diuretics until he is completely euvolemic before sending him back to the senior care. Otherwise, he is doing well and stable.
--- NOTE | 2017-01-07 15:22 | Progress Note ---
Internal Med Progress Note Date of Service: Jan 07, 2017. Provider Documentation: SUBJECTIVE: The patient was seen and examined Admitted with SOB ,no CP,Palpitation Feels much better OBJECTIVE: Vital Signs-as noted below Exam: General-No distress at rest Eyes-normal ENT-normal Neck-Supple Lungs-Decreased breath sound bilaterally Minimal crackles at the bases Heart-Regular,no murmur appreciated Abdomen-Benign,no masses,bowel sound present Extremities-1+ edema bilaterally -improving Neuro-AA Pleasantly confused No focal Neuro deficit Lab data as noted below. ASSESSMENT & PLAN: Acute on Chronic Systolic CHF Worsening SOB CXR showed congestive heart failure and interstitial edema. Received IV Lasix in ER Aggressive Diuresis Appreciate cardiology input Echo done 0n 12/18/16 showed: * Left ventricular systolic function is mildly reduced. * Ejection Fraction = 40-45%. * The right ventricle is moderately dilated. * The right ventricular systolic function is moderately reduced. * Flattened septum is consistent with RV pressure/volume overload. * Dilated inferior vena cava with reduced collapsability with sniff indicates an elevated right atrial pressure of 15 mmHg * 2D echo imaging and doppler interrogation of the aortic valve are discordant. Moderate aortic valve stenosis is suspected. * There is mild to moderate mitral regurgitation. * There is mild tricuspid regurgitation. Repeat ECHO:: * The left ventricle is grossly normal size. * Ejection Fraction = 40-45%. * Flattened septum is consistent with RV pressure/volume overload. * The right ventricle is moderate to severely dilated. * The right ventricular systolic function is moderate to severely reduced. * The left atrium is severely dilated. * The right atrium is severely dilated. * Moderate valvular aortic stenosis. * There is mild mitral regurgitation. * There is mild to moderate tricuspid regurgitation. Continue Diuresis COPD No exacerbation but complicating CHF with Right sided heart failure continue breathing treatment And Diuretics May need Pulmonary involvement a swell Will try small dose of Prednisone B/L LE edema-secondary rainer CHF Venous doppler of lower extremities negative for DVT Keep legs elevated and Follow low salt diet Consider compression stocking CKD stage 3 Creatine btw 2-2.5 baseline creatine on admission 2.1 May get worse with Diuresis May need Nephrology involvement Atrial Fibrillation rate controlled had high grade AV block at [facility] and reverted after stopping digoxin not on anticoagulation secondary to question of occult GI bleed and anemia workup. Continue Aspirin DM2 Type 2 Most recent hba1c 7.7 (11/25/16) on Lantus and iss Odontoid neck fracture recent cervical surgery at [facility] and site was infected with MRSA Stable Dementia as per records No acute delirium DVT px heparin subq (will monitor h/h) CODE STATUS FULL CODE Disposition Will need a day or two Vital Signs: Date Time Temp Pulse Resp B/P Pulse Ox O2 Delivery O2 Flow Rate FiO2 01/07/17 15:02 92 18 92 Nasal Cannula 2.0 01/07/17 12:00 95 Nasal Cannula 2.0 01/07/17 11:19 36.9 78 20 128/76 95 01/07/17 11:03 96 18 90 Room Air 01/07/17 08:00 94 Nasal Cannula 2.0 01/07/17 07:46 36.8 86 20 139/76 94 01/07/17 04:00 94 Nasal Cannula 2.0 01/07/17 03:47 36.2 94 21 115/78 94 Nasal Cannula 2.0 01/06/17 23:59 Nasal Cannula 2.0 01/06/17 23:48 36.9 93 22 119/67 94 Nasal Cannula 2.0 01/06/17 20:00 Nasal Cannula 2.0 01/06/17 19:46 84 18 94 Nasal Cannula 2.0 01/06/17 19:16 36.6 86 18 131/86 100 Nasal Cannula 01/06/17 16:05 36.6 89 18 120/73 99 Room Air 01/06/17 16:00 Nasal Cannula 2.0 01/06/17 15:38 92 18 98 Nasal Cannula 2.0 Lab Results: Results Past 24 Hours Test 01/06/17 16:03 01/06/17 20:45 01/07/17 06:11 01/07/17 06:58 Range/Units Bedside Glucose 117 126 47 70-99 mg/dl Sodium Level 140 136-145 mmol/L Potassium Level 3.4 3.5-5.1 mmol/L Chloride Level 100 98-107 mmol/L Carbon Dioxide Level 33 21-32 mmol/L Anion Gap 7.0 3-11 mmol/L Blood Urea Nitrogen 52 7-18 mg/dl Creatinine 1.70 0.60-1.40 mg/dl Est Creatinine Clear Calc Drug Dose 39.0 ml/min Estimated GFR () 42.3 Estimated GFR (Non- 36.5 BUN/Creatinine Ratio 30.5 10-20 Random Glucose 45 70-99 mg/dl Calcium Level 8.6 8.5-10.1 mg/dl Phosphorus Level 3.5 2.5-4.9 mg/dl Magnesium Level 2.0 1.8-2.4 mg/dl Test 01/07/17 07:28 01/07/17 07:54 01/07/17 11:13 Range/Units Bedside Glucose 57 138 144 70-99 mg/dl
--- NOTE | 2017-01-07 16:05 | Nephrology Progress Note ---
Nephrology Progress Note Date of Service: Jan 07, 2017. Subjective 81 yo male with ckd stage 4 with creatinine in the low 2s and presented with volume overload. responding well to iv diuretics. pt wants to go home. complaining of being cold. has a good appetite. despite aggresive diuretics, creatinine improving. denies any cramping. Objective Date Time Temp Pulse Resp B/P Pulse Ox O2 Delivery O2 Flow Rate FiO2 01/07/17 15:35 36.7 94 18 125/81 98 Nasal Cannula 2.0 01/07/17 15:02 92 18 92 Nasal Cannula 2.0 01/07/17 12:00 95 Nasal Cannula 2.0 01/07/17 11:19 36.9 78 20 128/76 95 01/07/17 11:03 96 18 90 Room Air 01/07/17 08:00 94 Nasal Cannula 2.0 01/07/17 07:46 36.8 86 20 139/76 94 01/07/17 04:00 94 Nasal Cannula 2.0 01/07/17 03:47 36.2 94 21 115/78 94 Nasal Cannula 2.0 01/06/17 23:59 Nasal Cannula 2.0 01/06/17 23:48 36.9 93 22 119/67 94 Nasal Cannula 2.0 01/06/17 20:00 Nasal Cannula 2.0 01/06/17 19:46 84 18 94 Nasal Cannula 2.0 01/06/17 19:16 36.6 86 18 131/86 100 Nasal Cannula 01/06/17 16:05 36.6 89 18 120/73 99 Room Air Physical Exam: General-aaox3 Eyes-no scleral icterus ENT-mmm Neck-supple Lungs-+rhonchi Heart-irregularly irregular Abdomen-bs+ s/nt/nd Extremities-+2 edema-improving Neuro-nonfocal Current Inpatient Medications Medications (Trade) Dose Ordered Sig/Claribel Route Start Time Stop Time Status Last Admin Dose Admin Acetaminophen (Tylenol Tab) 650 mg Q4H PRN PO 01/06/17 00:00 02/05/17 00:00 Albuterol (Ventolin Hfa Inhaler) 2 puffs Q4H PRN INH 01/06/17 00:00 02/05/17 00:00 01/06/17 23:38 2 PUFFS Aspirin (Ecotrin Tab) 81 mg QAM PO 01/06/17 09:00 02/05/17 08:59 01/07/17 08:11 81 MG Insulin Glargine (Lantus Solostar Pen) 20 unit QPM SC 01/06/17 21:00 02/05/17 20:59 01/06/17 21:12 20 UNIT Lactobacillus Acidophilus (Floranex Tab) 2 tab BID PO 01/06/17 09:00 02/05/17 08:59 01/07/17 08:11 2 TAB Magnesium Hydroxide (Milk Of Magnesia Susp) 30 ml DAILY PRN PO 01/06/17 00:00 02/05/17 00:00 Ondansetron HCl (Zofran Tab) 4 mg Q8 PRN PO 01/06/17 00:00 02/05/17 00:00 Ranitidine HCl (zANTac TAB) 150 mg BID PO 01/06/17 09:00 02/05/17 08:59 01/07/17 08:11 150 MG Simvastatin (Zocor Tab) 20 mg HS PO 01/06/17 21:00 02/05/17 20:59 01/06/17 21:14 20 MG Trazodone HCl (Desyrel Tab) 50 mg HS PO 01/06/17 21:00 02/05/17 20:59 01/06/17 21:14 50 MG Polyethylene (Miralax Powder Packet) 17 gm QAM PO 01/06/17 09:00 02/05/17 08:59 01/07/17 08:12 17 GM Non-Formulary Medication (Zinc Oxide (Topical) (Zinc Oxide)) 1 appln DIRECTED TOP 01/06/17 00:00 02/05/17 00:00 UNV Glucose (Glucose 40% Gel) 15-30 GRAMS 15 GRAMS... UD PRN PO 01/06/17 00:15 02/05/17 00:14 Glucose (Glucose Chew Tab) 4-8 Tablets 4 Tabl... UD PRN PO 01/06/17 00:15 02/05/17 00:14 Dextrose (Dextrose 50% 50ML Syringe) 25-50ML OF 50% DW IV FOR... UD PRN IV 01/06/17 00:15 02/05/17 00:14 01/07/17 07:36 25 ML Glucagon (Glucagon Inj) 1 mg UD PRN SQ 01/06/17 00:15 02/05/17 00:14 Insulin Aspart (novoLOG ASPART) SLIDING SCALE If C... ACHS SC 01/06/17 07:00 02/05/17 06:59 01/07/17 12:11 2 UNITS Heparin Sodium (Porcine) (Heparin Sq 5000 Unit/0.5ml) 5,000 unit Q12 SQ 01/06/17 09:00 02/05/17 08:59 01/07/17 08:13 5,000 UNIT Albuterol/ Ipratropium 3 ml 3 ml QIDR INH 01/06/17 08:00 02/05/17 07:59 01/07/17 15:02 3 ML Furosemide/Syringe (Lasix Inj/ Syringe) 4 ml @ 4 mls/min BID@0600,1800 IV 01/06/17 09:00 02/05/17 08:59 01/07/17 05:38 4 MLS/MIN Magnesium Chloride (Slow-Mag Tab) 64 mg BID PO 01/07/17 21:00 02/06/17 20:59 Prednisone (PredniSONE TAB) 40 mg DAILY PO 01/08/17 09:00 02/07/17 08:59 Prednisone (PredniSONE TAB) 40 mg 1600 ONCE PO 01/07/17 16:00 01/07/17 16:01 Last 24 Hours Test 01/06/17 16:03 01/06/17 20:45 01/07/17 06:11 01/07/17 06:58 Bedside Glucose 117 mg/dl 126 mg/dl 47 mg/dl Sodium Level 140 mmol/L Potassium Level 3.4 mmol/L Chloride Level 100 mmol/L Carbon Dioxide Level 33 mmol/L Anion Gap 7.0 mmol/L Blood Urea Nitrogen 52 mg/dl Creatinine 1.70 mg/dl Est Creatinine Clear Calc Drug Dose 39.0 ml/min Estimated GFR () 42.3 Estimated GFR (Non- 36.5 BUN/Creatinine Ratio 30.5 Random Glucose 45 mg/dl Calcium Level 8.6 mg/dl Phosphorus Level 3.5 mg/dl Magnesium Level 2.0 mg/dl Test 01/07/17 07:28 01/07/17 07:54 01/07/17 11:13 Bedside Glucose 57 mg/dl 138 mg/dl 144 mg/dl Assessment & Plan CKD stage 4 with creatinine in the low 2s and ok with creatinine trending up as we diurese patient since medically appropriate. however, despite the iv diuretics, creatinine is improving today compared to yesterday. continue current diuretics. leg swelling is improving. close to 10 liters negative since admission. hypokalemia-k is low and supplemented with oral k this morning. will follow k levels. mag levels are good at 2. will go ahead and give another 40 po k since continuing to respond well with the iv diuretics.
[2017-01-07] MEDS: SIMVASTATIN 20 MG TAB PO SCH (20:54)
[2017-01-07] MEDS: MAGNESIUM CHLORIDE 64MG DELAYED REL TAB PO SCH (20:55)
[2017-01-07] MEDS: TRAZODONE HCL 50 MG TAB PO SCH (20:55)
[2017-01-07] MEDS: INSULIN GLARGINE SOLOSTAR 100 UNITS/ML 3 ML PEN SC SCH (20:56)
[2017-01-07] MEDS ORDERED: INSULIN GLARGINE PER UNIT 8 UNITS in SYRINGE 0 ML SC SCH (21:00)
[2017-01-08] VITALS (14 sets, daily range): BP systolic 92–126; BP diastolic 68–89; PULSE 82–127; TEMP 36.4–36.8; O2SAT 91–98
[2017-01-08] MEDS: FUROSEMIDE INJ 40 MG in SYRINGE 0 ML IV SCH ×2 (05:31→17:11)
[2017-01-08] MEDS: ALBUT/IPRATROP 3MG/0.5MG NEB 3 ML VIAL INH SCH ×4 (07:11→19:59)
[2017-01-08] MEDS: INSULIN ASPART 100 UNITS/ML 3 ML PEN SC SCH ×4 (08:16→20:27)
[2017-01-08] MEDS: INSULIN GLARGINE SOLOSTAR 100 UNITS/ML 3 ML PEN SC SCH ×2 (08:17→20:23)
[2017-01-08] MEDS: HEPARIN SOD 5000 UNIT/0.5 ML CARP SQ SCH ×2 (08:18→20:27)
[2017-01-08] MEDS: LACTOBACILLUS ACIDOPHILUS (FLORANEX) TAB PO SCH ×2 (08:20→20:21)
[2017-01-08] MEDS: ASPIRIN 81 MG ECTAB PO SCH (08:20)
[2017-01-08] MEDS: MAGNESIUM CHLORIDE 64MG DELAYED REL TAB PO SCH ×2 (08:21→20:20)
[2017-01-08] MEDS: POLYETHYLENE (MIRALAX) 17 GM PACK PO SCH (08:21)
[2017-01-08] MEDS: RANITIDINE HCL 150 MG TAB PO SCH ×2 (08:22→20:20)
[2017-01-08 08:30] LABS: BUN/CREATININE RATIO 26.2 (10-20); CALCIUM 9.2 mg/dl (8.5-10.1); MAGNESIUM 2.1 mg/dl (1.8-2.4); PHOSPHORUS 3.9 mg/dl (2.5-4.9); POTASSIUM 4.5 mmol/L (3.5-5.1)
--- NOTE | 2017-01-08 13:23 | Nephrology Progress Note ---
Nephrology Progress Note Date of Service: Jan 08, 2017. Subjective 81 yo male with ckd stage 4 with creatinine in the low 2s and presented with volume overload. continues to diurese nicely. lungs are sounding better and legs swelling improving. Objective Date Time Temp Pulse Resp B/P Pulse Ox O2 Delivery O2 Flow Rate FiO2 01/08/17 12:00 94 Room Air 01/08/17 11:39 36.8 93 22 123/83 92 Nasal Cannula 2.0 01/08/17 11:17 84 16 94 Nasal Cannula 2.0 01/08/17 08:00 94 Room Air 01/08/17 07:44 36.5 98 22 126/85 97 Nasal Cannula 2.0 01/08/17 07:11 92 16 96 Nasal Cannula 2.0 01/08/17 04:02 Nasal Cannula 2.0 01/08/17 03:23 36.4 92 21 117/69 95 Nasal Cannula 2.0 01/08/17 00:02 Nasal Cannula 2.0 01/07/17 23:49 36.6 74 20 115/69 92 Nasal Cannula 2.0 01/07/17 20:04 Nasal Cannula 2.0 01/07/17 19:51 95 18 97 Nasal Cannula 2.0 01/07/17 19:14 36.7 94 16 124/80 98 Nasal Cannula 2.0 01/07/17 16:00 96 Nasal Cannula 2.0 01/07/17 15:35 36.7 94 18 125/81 98 Nasal Cannula 2.0 01/07/17 15:02 92 18 92 Nasal Cannula 2.0 Physical Exam: General-aaox3 Eyes-no scleral icterus ENT-mmm Neck-supple Lungs-more clear Heart-irregularly irregular Abdomen-bs+ s/nt/nd Extremities-+1 edema-improving Neuro-nonfocal Current Inpatient Medications Medications (Trade) Dose Ordered Sig/Claribel Route Start Time Stop Time Status Last Admin Dose Admin Acetaminophen (Tylenol Tab) 650 mg Q4H PRN PO 01/06/17 00:00 02/05/17 00:00 Albuterol (Ventolin Hfa Inhaler) 2 puffs Q4H PRN INH 01/06/17 00:00 02/05/17 00:00 01/06/17 23:38 2 PUFFS Aspirin (Ecotrin Tab) 81 mg QAM PO 01/06/17 09:00 02/05/17 08:59 01/08/17 08:20 81 MG Lactobacillus Acidophilus (Floranex Tab) 2 tab BID PO 01/06/17 09:00 02/05/17 08:59 01/08/17 08:20 2 TAB Magnesium Hydroxide (Milk Of Magnesia Susp) 30 ml DAILY PRN PO 01/06/17 00:00 02/05/17 00:00 Ondansetron HCl (Zofran Tab) 4 mg Q8 PRN PO 01/06/17 00:00 02/05/17 00:00 Ranitidine HCl (zANTac TAB) 150 mg BID PO 01/06/17 09:00 02/05/17 08:59 01/08/17 08:22 150 MG Simvastatin (Zocor Tab) 20 mg HS PO 01/06/17 21:00 02/05/17 20:59 01/07/17 20:54 20 MG Trazodone HCl (Desyrel Tab) 50 mg HS PO 01/06/17 21:00 02/05/17 20:59 01/07/17 20:55 50 MG Polyethylene (Miralax Powder Packet) 17 gm QAM PO 01/06/17 09:00 02/05/17 08:59 01/08/17 08:21 17 GM Non-Formulary Medication (Zinc Oxide (Topical) (Zinc Oxide)) 1 appln DIRECTED TOP 01/06/17 00:00 02/05/17 00:00 UNV Glucose (Glucose 40% Gel) 15-30 GRAMS 15 GRAMS... UD PRN PO 01/06/17 00:15 02/05/17 00:14 Glucose (Glucose Chew Tab) 4-8 Tablets 4 Tabl... UD PRN PO 01/06/17 00:15 02/05/17 00:14 Dextrose (Dextrose 50% 50ML Syringe) 25-50ML OF 50% DW IV FOR... UD PRN IV 01/06/17 00:15 02/05/17 00:14 01/07/17 07:36 25 ML Glucagon (Glucagon Inj) 1 mg UD PRN SQ 01/06/17 00:15 02/05/17 00:14 Insulin Aspart (novoLOG ASPART) SLIDING SCALE If C... ACHS SC 01/06/17 07:00 02/05/17 06:59 01/08/17 11:21 6 UNITS Heparin Sodium (Porcine) (Heparin Sq 5000 Unit/0.5ml) 5,000 unit Q12 SQ 01/06/17 09:00 02/05/17 08:59 01/08/17 08:18 5,000 UNIT Albuterol/ Ipratropium 3 ml 3 ml QIDR INH 01/06/17 08:00 02/05/17 07:59 01/08/17 11:16 3 ML Furosemide/Syringe (Lasix Inj/ Syringe) 4 ml @ 4 mls/min BID@0600,1800 IV 01/06/17 09:00 02/05/17 08:59 01/08/17 05:31 4 MLS/MIN Magnesium Chloride (Slow-Mag Tab) 64 mg BID PO 01/07/17 21:00 02/06/17 20:59 01/08/17 08:21 64 MG Prednisone (PredniSONE TAB) 40 mg DAILY PO 01/08/17 09:00 02/07/17 08:59 01/08/17 08:21 40 MG Insulin Glargine (Lantus Solostar Pen) 8 unit BID SC 01/07/17 21:00 02/06/17 20:59 01/08/17 08:17 8 UNIT Last 24 Hours Test 01/07/17 16:33 01/07/17 20:09 01/08/17 06:34 01/08/17 06:53 Bedside Glucose 188 mg/dl 163 mg/dl 197 mg/dl Sodium Level 136 mmol/L Potassium Level 4.5 mmol/L Chloride Level 95 mmol/L Carbon Dioxide Level 33 mmol/L Anion Gap 8.0 mmol/L Blood Urea Nitrogen 52 mg/dl Creatinine 2.00 mg/dl Est Creatinine Clear Calc Drug Dose 33.1 ml/min Estimated GFR () 34.7 Estimated GFR (Non- 30.0 BUN/Creatinine Ratio 26.2 Random Glucose 205 mg/dl Calcium Level 9.2 mg/dl Phosphorus Level 3.9 mg/dl Magnesium Level 2.1 mg/dl Test 01/08/17 11:13 Bedside Glucose 395 mg/dl Assessment & Plan CKD stage 4 with creatinine in the low 2s and initially improved from 2.1 to 1.7 but now trending back up and is 2. pt still fluid overloaded and ok with creatinine continuing to trend up. would continue current diuretics and responding well to them. negative 10 liters since admission. lungs sound much better and leg swelling also improving. continue current diuretics.
--- NOTE | 2017-01-08 13:50 | Cardiology Follow-Up ---
Subjective General Date of Service: Jan 08, 2017. Chief Complaint: follow up SOB, edema Pt evaluation today including: conversation w/ patient, physical exam History of Present Illness The patient is a 81 year old male seen in follow up. Patient states edema is improving. Allergies Coded Allergies: No Known Allergies (Unverified , 01/05/17) Social History Smoking Status: Former Smoker Hx Tobacco Use In Past Year?: No Hx Alcohol Use - Type And Amou: No Hx Substance Use - Type And Am: No Problem List Medical Problems: (1) Cellulitis of right leg Status: Acute (2) CHF exacerbation Status: Acute (3) Dependent edema Status: Acute (4) Fall Status: Acute (5) Hypoglycemia Status: Acute (6) Odontoid fracture Status: Acute (7) Pneumonia Status: Acute Physical Exam Vital Signs Last Vital Signs Documentation Date Time Temp Pulse Resp B/P Pulse Ox O2 Delivery O2 Flow Rate FiO2 01/08/17 12:00 94 Room Air 01/08/17 11:39 36.8 93 22 123/83 2.0 Physical Exam Head: normocephalic Lungs: Auscultation: pertinent finding (midly decreased BS at the bases) Cardiovascular: Heart Auscultation: RRR, II/ KELSEY Extremities: pertinent finding (trace to 1+ LE edema) Assessment and Plan Assessment and Plan Impression: 1. Acute on chronic systolic diastolic HF, with biventricular systolic dysfunction. 2. Moderate 3.Underlying COPD. 4. Dementia 5. CKD Plan: Continue furosemide 40 mg IV BID and mackenzie catheter. Upon discharge consider torsemide instead of furosemide. Laboratory Results Last 24 Hours Test 01/07/17 16:33 01/07/17 20:09 01/08/17 06:34 01/08/17 06:53 Bedside Glucose 188 mg/dl 163 mg/dl 197 mg/dl Sodium Level 136 mmol/L Potassium Level 4.5 mmol/L Chloride Level 95 mmol/L Carbon Dioxide Level 33 mmol/L Anion Gap 8.0 mmol/L Blood Urea Nitrogen 52 mg/dl Creatinine 2.00 mg/dl Est Creatinine Clear Calc Drug Dose 33.1 ml/min Estimated GFR () 34.7 Estimated GFR (Non- 30.0 BUN/Creatinine Ratio 26.2 Random Glucose 205 mg/dl Calcium Level 9.2 mg/dl Phosphorus Level 3.9 mg/dl Magnesium Level 2.1 mg/dl Test 01/08/17 11:13 Bedside Glucose 395 mg/dl
--- NOTE | 2017-01-08 14:25 | DIAGNOSTIC IMAGING REPORT ---
CHEST 2 VIEWS ROUTINE CLINICAL HISTORY: Congestive failure COMPARISON STUDY: 01/06/2017 FINDINGS: The heart remains enlarged. There is continued radiographic evidence of pulmonary vascular congestion. There are bilateral pulmonary airspace opacities most pronounced the left lung base and right upper lung zone. Small pleural effusions are suspected.[ IMPRESSION: 1. Persistent cardiomegaly, pulmonary vascular congestion, small pleural effusions, and bilateral pulmonary airspace opacities Electronically signed by: Kevin Dean M.D. 01/08/2017 2:22 PM Dictated Date/Time: 01/08/2017 2:22 PM
--- NOTE | 2017-01-08 14:27 | Progress Note ---
Internal Med Progress Note Date of Service: Jan 08, 2017. Provider Documentation: SUBJECTIVE: The patient was seen and examined Admitted with SOB ,no CP,Palpitation Feels much better but has audible wheezing OBJECTIVE: Vital Signs-as noted below Exam: General-Minimal distress at rest Eyes-normal ENT-normal Neck-Supple Lungs-Decreased breath sound bilaterally Minimal crackles at the bases and wheezing elsewhere Heart-Regular,no murmur appreciated Abdomen-Benign,no masses,bowel sound present Extremities-1+ edema bilaterally -improving Neuro-AA Pleasantly confused No focal Neuro deficit Lab data as noted below. ASSESSMENT & PLAN: Acute on Chronic Systolic CHF Worsening SOB CXR showed congestive heart failure and interstitial edema. Received IV Lasix in ER Aggressive Diuresis Appreciate cardiology input Echo done 0n 12/18/16 showed: * Left ventricular systolic function is mildly reduced. * Ejection Fraction = 40-45%. * The right ventricle is moderately dilated. * The right ventricular systolic function is moderately reduced. * Flattened septum is consistent with RV pressure/volume overload. * Dilated inferior vena cava with reduced collapsability with sniff indicates an elevated right atrial pressure of 15 mmHg * 2D echo imaging and doppler interrogation of the aortic valve are discordant. Moderate aortic valve stenosis is suspected. * There is mild to moderate mitral regurgitation. * There is mild tricuspid regurgitation. Repeat ECHO:: * The left ventricle is grossly normal size. * Ejection Fraction = 40-45%. * Flattened septum is consistent with RV pressure/volume overload. * The right ventricle is moderate to severely dilated. * The right ventricular systolic function is moderate to severely reduced. * The left atrium is severely dilated. * The right atrium is severely dilated. * Moderate valvular aortic stenosis. * There is mild mitral regurgitation. * There is mild to moderate tricuspid regurgitation. Continue Diuresis-lost about 10KGs Renal function is minimally worse will continue Lasix for now COPD No exacerbation but complicating CHF with Right sided heart failure continue breathing treatment And Diuretics May need Pulmonary involvement a swell Will try small dose of Prednisone Clinically a little better B/L LE edema-secondary rainer CHF Venous doppler of lower extremities negative for DVT Keep legs elevated and Follow low salt diet Consider compression stocking CKD stage 3 Creatine btw 2-2.5 baseline creatine on admission 2.1 May get worse with Diuresis Appreciate Nephrology input Atrial Fibrillation rate controlled had high grade AV [place] [facility] reverted after stopping digoxin not on anticoagulation secondary to question of occult GI bleed and anemia workup. 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 Stable Dementia as per records No acute delirium DVT px heparin subq (will monitor h/h) CODE STATUS FULL CODE Disposition Likely discharge on Wednesday Vital Signs: Date Time Temp Pulse Resp B/P Pulse Ox O2 Delivery O2 Flow Rate FiO2 01/08/17 12:00 94 Room Air 01/08/17 11:39 36.8 93 22 123/83 92 Nasal Cannula 2.0 01/08/17 11:17 84 16 94 Nasal Cannula 2.0 01/08/17 08:00 94 Room Air 01/08/17 07:44 36.5 98 22 126/85 97 Nasal Cannula 2.0 01/08/17 07:11 92 16 96 Nasal Cannula 2.0 01/08/17 04:02 Nasal Cannula 2.0 01/08/17 03:23 36.4 92 21 117/69 95 Nasal Cannula 2.0 01/08/17 00:02 Nasal Cannula 2.0 01/07/17 23:49 36.6 74 20 115/69 92 Nasal Cannula 2.0 01/07/17 20:04 Nasal Cannula 2.0 01/07/17 19:51 95 18 97 Nasal Cannula 2.0 01/07/17 19:14 36.7 94 16 124/80 98 Nasal Cannula 2.0 01/07/17 16:00 96 Nasal Cannula 2.0 01/07/17 15:35 36.7 94 18 125/81 98 Nasal Cannula 2.0 01/07/17 15:02 92 18 92 Nasal Cannula 2.0 Lab Results: Results Past 24 Hours Test 01/07/17 16:33 01/07/17 20:09 01/08/17 06:34 01/08/17 06:53 Range/Units Bedside Glucose 188 163 197 70-99 mg/dl Sodium Level 136 136-145 mmol/L Potassium Level 4.5 3.5-5.1 mmol/L Chloride Level 95 98-107 mmol/L Carbon Dioxide Level 33 21-32 mmol/L Anion Gap 8.0 3-11 mmol/L Blood Urea Nitrogen 52 7-18 mg/dl Creatinine 2.00 0.60-1.40 mg/dl Est Creatinine Clear Calc Drug Dose 33.1 ml/min Estimated GFR () 34.7 Estimated GFR (Non- 30.0 BUN/Creatinine Ratio 26.2 10-20 Random Glucose 205 70-99 mg/dl Calcium Level 9.2 8.5-10.1 mg/dl Phosphorus Level 3.9 2.5-4.9 mg/dl Magnesium Level 2.1 1.8-2.4 mg/dl Test 01/08/17 11:13 Range/Units Bedside Glucose 395 70-99 mg/dl
[2017-01-08] MEDS: SIMVASTATIN 20 MG TAB PO SCH (20:20)
[2017-01-08] MEDS: TRAZODONE HCL 50 MG TAB PO SCH (20:22)
[2017-01-09] VITALS (11 sets, daily range): BP systolic 118–144; BP diastolic 77–95; PULSE 79–100; TEMP 36.3–36.8; O2SAT 92–99
[2017-01-09] MEDS: FUROSEMIDE INJ 40 MG in SYRINGE 0 ML IV SCH (06:16)
[2017-01-09 07:06] LABS: BUN/CREATININE RATIO 27.5 (10-20); CREATININE 2.3 mg/dl (0.60-1.40); POTASSIUM 4.2 mmol/L (3.5-5.1)
[2017-01-09] MEDS: ALBUT/IPRATROP 3MG/0.5MG NEB 3 ML VIAL INH SCH ×4 (07:30→19:57)
[2017-01-09] MEDS: ASPIRIN 81 MG ECTAB PO SCH (07:57)
[2017-01-09] MEDS: MAGNESIUM CHLORIDE 64MG DELAYED REL TAB PO SCH ×2 (07:57→21:11)
[2017-01-09] MEDS: POLYETHYLENE (MIRALAX) 17 GM PACK PO SCH (07:58)
[2017-01-09] MEDS: LACTOBACILLUS ACIDOPHILUS (FLORANEX) TAB PO SCH ×2 (07:58→21:11)
[2017-01-09] MEDS: RANITIDINE HCL 150 MG TAB PO SCH ×2 (07:59→21:10)
[2017-01-09] MEDS: INSULIN ASPART 100 UNITS/ML 3 ML PEN SC SCH ×4 (08:04→21:15)
[2017-01-09] MEDS: HEPARIN SOD 5000 UNIT/0.5 ML CARP SQ SCH ×2 (08:05→21:16)
[2017-01-09] MEDS: INSULIN GLARGINE SOLOSTAR 100 UNITS/ML 3 ML PEN SC SCH ×2 (08:05→21:14)
--- NOTE | 2017-01-09 08:41 | Nephrology Progress Note ---
Nephrology Progress Note Date of Service: Jan 09, 2017. Subjective 81 yo male with ckd stage 4 with creatinine in the low 2s and presented with volume overload. continues to diurese nicely. pt excited about the possibility of being discharged soon. edema is much better and breathing better. appetite is good. chronically cold. Objective Date Time Temp Pulse Resp B/P Pulse Ox O2 Delivery O2 Flow Rate FiO2 01/09/17 07:52 36.8 92 18 144/95 97 Nasal Cannula 2.0 01/09/17 07:30 95 18 97 Nasal Cannula 2.0 01/09/17 04:00 Nasal Cannula 2.0 01/09/17 02:51 36.5 97 19 118/77 94 Nasal Cannula 2.0 01/09/17 00:01 Nasal Cannula 2.0 01/08/17 23:12 36.4 92 20 108/73 94 Nasal Cannula 2.0 01/08/17 20:00 96 Nasal Cannula 2.0 01/08/17 19:59 82 18 98 Nasal Cannula 2.0 01/08/17 19:26 36.4 94 20 92/68 96 Nasal Cannula 2.0 01/08/17 16:00 94 Room Air 01/08/17 15:38 36.6 127 20 126/89 91 Nasal Cannula 2.0 01/08/17 15:24 86 16 94 Nasal Cannula 2.0 01/08/17 12:00 94 Room Air 01/08/17 11:39 36.8 93 22 123/83 92 Nasal Cannula 2.0 01/08/17 11:17 84 16 94 Nasal Cannula 2.0 Physical Exam: General-aaox3 Eyes-no scleral icterus ENT-mmm Neck-supple Lungs-clear Heart-irregularly irregular Abdomen-bs+ s/nt/nd Extremities-mild edema Neuro-nonfocal Current Inpatient Medications Medications (Trade) Dose Ordered Sig/Claribel Route Start Time Stop Time Status Last Admin Dose Admin Acetaminophen (Tylenol Tab) 650 mg Q4H PRN PO 01/06/17 00:00 02/05/17 00:00 Albuterol (Ventolin Hfa Inhaler) 2 puffs Q4H PRN INH 01/06/17 00:00 02/05/17 00:00 01/06/17 23:38 2 PUFFS Aspirin (Ecotrin Tab) 81 mg QAM PO 01/06/17 09:00 02/05/17 08:59 01/09/17 07:57 81 MG Lactobacillus Acidophilus (Floranex Tab) 2 tab BID PO 01/06/17 09:00 02/05/17 08:59 01/09/17 07:58 2 TAB Magnesium Hydroxide (Milk Of Magnesia Susp) 30 ml DAILY PRN PO 01/06/17 00:00 02/05/17 00:00 Ondansetron HCl (Zofran Tab) 4 mg Q8 PRN PO 01/06/17 00:00 02/05/17 00:00 Ranitidine HCl (zANTac TAB) 150 mg BID PO 01/06/17 09:00 02/05/17 08:59 01/09/17 07:59 150 MG Simvastatin (Zocor Tab) 20 mg HS PO 01/06/17 21:00 02/05/17 20:59 01/08/17 20:20 20 MG Trazodone HCl (Desyrel Tab) 50 mg HS PO 01/06/17 21:00 02/05/17 20:59 01/08/17 20:22 50 MG Polyethylene (Miralax Powder Packet) 17 gm QAM PO 01/06/17 09:00 02/05/17 08:59 01/09/17 07:58 17 GM Non-Formulary Medication (Zinc Oxide (Topical) (Zinc Oxide)) 1 appln DIRECTED TOP 01/06/17 00:00 02/05/17 00:00 UNV Glucose (Glucose 40% Gel) 15-30 GRAMS 15 GRAMS... UD PRN PO 01/06/17 00:15 02/05/17 00:14 Glucose (Glucose Chew Tab) 4-8 Tablets 4 Tabl... UD PRN PO 01/06/17 00:15 02/05/17 00:14 Dextrose (Dextrose 50% 50ML Syringe) 25-50ML OF 50% DW IV FOR... UD PRN IV 01/06/17 00:15 02/05/17 00:14 01/07/17 07:36 25 ML Glucagon (Glucagon Inj) 1 mg UD PRN SQ 01/06/17 00:15 02/05/17 00:14 Insulin Aspart (novoLOG ASPART) SLIDING SCALE If C... ACHS SC 01/06/17 07:00 02/05/17 06:59 01/09/17 08:04 5 UNITS Heparin Sodium (Porcine) (Heparin Sq 5000 Unit/0.5ml) 5,000 unit Q12 SQ 01/06/17 09:00 02/05/17 08:59 01/09/17 08:05 5,000 UNIT Albuterol/ Ipratropium 3 ml 3 ml QIDR INH 01/06/17 08:00 02/05/17 07:59 01/09/17 07:30 3 ML Furosemide/Syringe (Lasix Inj/ Syringe) 4 ml @ 4 mls/min BID@0600,1800 IV 01/06/17 09:00 02/05/17 08:59 01/09/17 06:16 4 MLS/MIN Magnesium Chloride (Slow-Mag Tab) 64 mg BID PO 01/07/17 21:00 02/06/17 20:59 01/09/17 07:57 64 MG Prednisone (PredniSONE TAB) 40 mg DAILY PO 01/08/17 09:00 02/07/17 08:59 01/09/17 07:58 40 MG Insulin Glargine (Lantus Solostar Pen) 8 unit BID SC 01/07/17 21:00 02/06/17 20:59 01/09/17 08:05 8 UNIT Last 24 Hours Test 01/08/17 11:13 01/08/17 16:19 01/08/17 20:22 01/09/17 06:05 Bedside Glucose 395 mg/dl 274 mg/dl 231 mg/dl Sodium Level 135 mmol/L Potassium Level 4.2 mmol/L Chloride Level 94 mmol/L Carbon Dioxide Level 34 mmol/L Anion Gap 7.0 mmol/L Blood Urea Nitrogen 63 mg/dl Creatinine 2.30 mg/dl Est Creatinine Clear Calc Drug Dose 28.3 ml/min Estimated GFR () 29.3 Estimated GFR (Non- 25.3 BUN/Creatinine Ratio 27.5 Random Glucose 156 mg/dl Calcium Level 9.0 mg/dl Test 01/09/17 06:37 Bedside Glucose 152 mg/dl Assessment & Plan CKD stage 4 with creatinine in the low 2s and creatinine has trended up to 2.3. volume status much improved. have reduced the lasix dose from bid to daily. would remove the mackenzie as well.
--- NOTE | 2017-01-09 10:47 | Cardiology Follow-Up ---
Subjective General Date of Service: Jan 09, 2017. Chief Complaint: follow up SOB, edema Pt evaluation today including: conversation w/ patient, physical exam History of Present Illness The patient is a 81 year old male seen in follow-up. Patient feels improved. Edema has been toward improvement. Telemetry reveals chronic atrial fibrillation. Allergies Coded Allergies: No Known Allergies (Unverified , 01/05/17) Social History Smoking Status: Former Smoker Hx Tobacco Use In Past Year?: No Hx Alcohol Use - Type And Amou: No Hx Substance Use - Type And Am: No Problem List Medical Problems: (1) Cellulitis of right leg Status: Acute (2) CHF exacerbation Status: Acute (3) Dependent edema Status: Acute (4) Fall Status: Acute (5) Hypoglycemia Status: Acute (6) Odontoid fracture Status: Acute (7) Pneumonia Status: Acute Physical Exam Vital Signs Last Vital Signs Documentation Date Time Temp Pulse Resp B/P Pulse Ox O2 Delivery O2 Flow Rate FiO2 01/09/17 08:00 Nasal Cannula 2.0 01/09/17 07:52 36.8 92 18 144/95 97 Physical Exam Head: normocephalic Lungs: Auscultation: pertinent finding (midly decreased BS at the bases) Cardiovascular: Heart Auscultation: RRR, II/ KELSEY Extremities: pertinent finding (trace to 1+ LE edema) Assessment and Plan Assessment and Plan Impression: 1. Acute on chronic systolic diastolic HF, with biventricular systolic dysfunction. 2. Moderate 3.Underlying COPD. 4. Dementia 5. CKD 6. Chronic atrial fibrillation, previously deemed to not be a Coumadin candidate. Plan: Nephrology input noted and appreciated. Reduce furosemide to 40 mg IV daily. Discontinue Broussard catheter. Will likely transition patient to torsemide at discharge with dose of either 10 mg by mouth daily or 20 mg by mouth daily. Continue subcutaneous heparin for DVT prophylaxis. Laboratory Results Last 24 Hours Test 01/08/17 11:13 01/08/17 16:19 01/08/17 20:22 01/09/17 06:05 Bedside Glucose 395 mg/dl 274 mg/dl 231 mg/dl Sodium Level 135 mmol/L Potassium Level 4.2 mmol/L Chloride Level 94 mmol/L Carbon Dioxide Level 34 mmol/L Anion Gap 7.0 mmol/L Blood Urea Nitrogen 63 mg/dl Creatinine 2.30 mg/dl Est Creatinine Clear Calc Drug Dose 28.3 ml/min Estimated GFR () 29.3 Estimated GFR (Non- 25.3 BUN/Creatinine Ratio 27.5 Random Glucose 156 mg/dl Calcium Level 9.0 mg/dl Test 01/09/17 06:37 Bedside Glucose 152 mg/dl
--- NOTE | 2017-01-09 10:50 | Progress Note ---
Internal Med Progress Note Date of Service: Jan 09, 2017. Provider Documentation: SUBJECTIVE: The patient was seen and examined Admitted with SOB ,no CP,Palpitation Denies any complaints Wants to be discharged OBJECTIVE: Vital Signs-as noted below Exam: General-Minimal distress at rest Eyes-normal ENT-normal Neck-Supple Lungs-Decreased breath sound bilaterally No more wheezing and or crackled Heart-Regular,no murmur appreciated Abdomen-Benign,no masses,bowel sound present Extremities-1+ edema bilaterally -much improved Neuro-AA Pleasantly confused No focal Neuro deficit Lab data as noted below. ASSESSMENT & PLAN: Acute on Chronic Systolic CHF Worsening SOB on admission CXR showed congestive heart failure and interstitial edema. Received IV Lasix in ER Aggressive Diuresis Appreciate cardiology input Echo done 0n 12/18/16 showed: * Left ventricular systolic function is mildly reduced. * Ejection Fraction = 40-45%. * The right ventricle is moderately dilated. * The right ventricular systolic function is moderately reduced. * Flattened septum is consistent with RV pressure/volume overload. * Dilated inferior vena cava with reduced collapsability with sniff indicates an elevated right atrial pressure of 15 mmHg * 2D echo imaging and doppler interrogation of the aortic valve are discordant. Moderate aortic valve stenosis is suspected. * There is mild to moderate mitral regurgitation. * There is mild tricuspid regurgitation. Repeat ECHO:: * The left ventricle is grossly normal size. * Ejection Fraction = 40-45%. * Flattened septum is consistent with RV pressure/volume overload. * The right ventricle is moderate to severely dilated. * The right ventricular systolic function is moderate to severely reduced. * The left atrium is severely dilated. * The right atrium is severely dilated. * Moderate valvular aortic stenosis. * There is mild mitral regurgitation. * There is mild to moderate tricuspid regurgitation. Continue Diuresis-lost about 10KGs Renal function is minimally worse will continue Lasix for now Diuresed a lot ,Ready to be discharged Discharge on Torsemide COPD No exacerbation but complicating CHF with Right sided heart failure continue breathing treatment And Diuretics May need Pulmonary involvement a swell Will try small dose of Prednisone Clinically much better today B/L LE edema-secondary rainer CHF Venous doppler of lower extremities negative for DVT Keep legs elevated and Follow low salt diet Consider compression stocking CKD stage 3 Creatine btw 2-2.5 baseline creatine on admission 2.1 May get worse with Diuresis Appreciate Nephrology input Cleared to be discharged Atrial Fibrillation rate controlled had high grade AV block at [facility] and reverted after stopping digoxin not on anticoagulation secondary to question of occult GI bleed and anemia workup. Continue Aspirin DM2 Type 2 Most recent hba1c 7.7 (11/25/16) on Lantus and iss Odontoid neck fracture recent cervical surgery at [facility] and site was infected with MRSA Stable Dementia as per records No acute delirium DVT px heparin subq (will monitor h/h) CODE STATUS FULL CODE Disposition Likely discharge in a day or two Vital Signs: Date Time Temp Pulse Resp B/P Pulse Ox O2 Delivery O2 Flow Rate FiO2 01/09/17 08:00 Nasal Cannula 2.0 01/09/17 07:52 36.8 92 18 144/95 97 Nasal Cannula 2.0 01/09/17 07:30 95 18 97 Nasal Cannula 2.0 01/09/17 04:00 Nasal Cannula 2.0 01/09/17 02:51 36.5 97 19 118/77 94 Nasal Cannula 2.0 01/09/17 00:01 Nasal Cannula 2.0 01/08/17 23:12 36.4 92 20 108/73 94 Nasal Cannula 2.0 01/08/17 20:00 96 Nasal Cannula 2.0 01/08/17 19:59 82 18 98 Nasal Cannula 2.0 01/08/17 19:26 36.4 94 20 92/68 96 Nasal Cannula 2.0 01/08/17 16:00 94 Room Air 01/08/17 15:38 36.6 127 20 126/89 91 Nasal Cannula 2.0 01/08/17 15:24 86 16 94 Nasal Cannula 2.0 01/08/17 12:00 94 Room Air 01/08/17 11:39 36.8 93 22 123/83 92 Nasal Cannula 2.0 01/08/17 11:17 84 16 94 Nasal Cannula 2.0 Lab Results: Results Past 24 Hours Test 01/08/17 11:13 01/08/17 16:19 01/08/17 20:22 01/09/17 06:05 Range/Units Bedside Glucose 395 274 231 70-99 mg/dl Sodium Level 135 136-145 mmol/L Potassium Level 4.2 3.5-5.1 mmol/L Chloride Level 94 98-107 mmol/L Carbon Dioxide Level 34 21-32 mmol/L Anion Gap 7.0 3-11 mmol/L Blood Urea Nitrogen 63 7-18 mg/dl Creatinine 2.30 0.60-1.40 mg/dl Est Creatinine Clear Calc Drug Dose 28.3 ml/min Estimated GFR () 29.3 Estimated GFR (Non- 25.3 BUN/Creatinine Ratio 27.5 10-20 Random Glucose 156 70-99 mg/dl Calcium Level 9.0 8.5-10.1 mg/dl Test 01/09/17 06:37 Range/Units Bedside Glucose 152 70-99 mg/dl
[2017-01-09] MEDS: SIMVASTATIN 20 MG TAB PO SCH (21:11)
[2017-01-09] MEDS: TRAZODONE HCL 50 MG TAB PO SCH (21:11)
[2017-01-10] VITALS (8 sets, daily range): BP systolic 120–131; BP diastolic 73–86; PULSE 75–103; TEMP 36.3–36.6; O2SAT 90–98
[2017-01-10] MEDS: ACETAMINOPHEN 325 MG TAB PO PRN ×2 (02:53→12:06)
[2017-01-10 07:00] LABS: BUN/CREATININE RATIO 33.1 (10-20); CALCIUM 8.9 mg/dl (8.5-10.1); CREATININE 2.2 mg/dl (0.60-1.40); POTASSIUM 4.1 mmol/L (3.5-5.1)
[2017-01-10] MEDS: ALBUT/IPRATROP 3MG/0.5MG NEB 3 ML VIAL INH SCH ×4 (07:37→19:13)
[2017-01-10] MEDS ORDERED: FUROSEMIDE INJ 40 MG in SYRINGE 0 ML IV SCH (08:00)
[2017-01-10] MEDS: POLYETHYLENE (MIRALAX) 17 GM PACK PO SCH (08:00)
[2017-01-10] MEDS: LACTOBACILLUS ACIDOPHILUS (FLORANEX) TAB PO SCH ×2 (09:28→20:06)
[2017-01-10] MEDS: ASPIRIN 81 MG ECTAB PO SCH (09:28)
[2017-01-10] MEDS: MAGNESIUM CHLORIDE 64MG DELAYED REL TAB PO SCH ×2 (09:29→20:06)
[2017-01-10] MEDS: RANITIDINE HCL 150 MG TAB PO SCH ×2 (09:29→20:06)
[2017-01-10] MEDS: INSULIN ASPART 100 UNITS/ML 3 ML PEN SC SCH ×4 (09:35→21:01)
[2017-01-10] MEDS: INSULIN GLARGINE SOLOSTAR 100 UNITS/ML 3 ML PEN SC SCH ×2 (09:39→21:02)
[2017-01-10] MEDS: HEPARIN SOD 5000 UNIT/0.5 ML CARP SQ SCH ×2 (09:43→20:09)
--- NOTE | 2017-01-10 11:51 | Cardiology Progress Note ---
Cardiology Progress Note Date of Service Jan 10, 2017. Cardiology Progress Note DC IV furosemide today. Transition to oral torsemide 10 mg PO daily am of 01/11. Anticipated transfer back to [facility].
--- NOTE | 2017-01-10 14:12 | Progress Note ---
Internal Med Progress Note Date of Service: Jan 10, 2017. Provider Documentation: SUBJECTIVE: The patient was seen and examined Admitted with SOB ,no CP,Palpitation Clinically much better Wants to be discharged OBJECTIVE: Vital Signs-as noted below Exam: General-Minimal distress at rest Eyes-normal ENT-normal Neck-Supple Lungs-Decreased breath sound bilaterally No more wheezing and or crackled Heart-Regular,no murmur appreciated Abdomen-Benign,no masses,bowel sound present Extremities-1+ edema bilaterally -much improved Neuro-AA Pleasantly confused No focal Neuro deficit Lab data as noted below. ASSESSMENT & PLAN: Acute on Chronic Systolic CHF Worsening SOB on admission CXR showed congestive heart failure and interstitial edema. Received IV Lasix in ER Aggressive Diuresis Appreciate cardiology input Echo done 0n 12/18/16 showed: * Left ventricular systolic function is mildly reduced. * Ejection Fraction = 40-45%. * The right ventricle is moderately dilated. * The right ventricular systolic function is moderately reduced. * Flattened septum is consistent with RV pressure/volume overload. * Dilated inferior vena cava with reduced collapsability with sniff indicates an elevated right atrial pressure of 15 mmHg * 2D echo imaging and doppler interrogation of the aortic valve are discordant. Moderate aortic valve stenosis is suspected. * There is mild to moderate mitral regurgitation. * There is mild tricuspid regurgitation. Repeat ECHO:: * The left ventricle is grossly normal size. * Ejection Fraction = 40-45%. * Flattened septum is consistent with RV pressure/volume overload. * The right ventricle is moderate to severely dilated. * The right ventricular systolic function is moderate to severely reduced. * The left atrium is severely dilated. * The right atrium is severely dilated. * Moderate valvular aortic stenosis. * There is mild mitral regurgitation. * There is mild to moderate tricuspid regurgitation. Continue Diuresis-lost about 10KGs Renal function is minimally worse will continue Lasix for now Diuresed a lot ,Ready to be discharged Discharge on Torsemide tomorrow COPD No exacerbation but complicating CHF with Right sided heart failure continue breathing treatment And Diuretics May need Pulmonary involvement a swell Will try small dose of Prednisone Clinically much better today Taper Prednisone B/L LE edema-secondary rainer CHF Venous doppler of lower extremities negative for DVT Keep legs elevated and Follow low salt diet Consider compression stocking Much improved CKD stage 3 Creatine btw 2-2.5 baseline creatine on admission 2.1 May get worse with Diuresis Appreciate Nephrology input Cleared to be discharged Atrial Fibrillation had high grade AV block at [facility] and reverted after stopping digoxin not on anticoagulation secondary to question of occult GI bleed and anemia workup. Continue Aspirin Rate is controlled DM2 Type 2 Most recent hba1c 7.7 (11/25/16) on Lantus and iss Blood sugar remains stable Odontoid neck fracture recent cervical surgery at [facility] and site was infected with MRSA Stable Dementia as per records No acute delirium DVT px heparin subq (will monitor h/h) CODE STATUS FULL CODE Disposition Likely discharge tomorrow Vital Signs: Date Time Temp Pulse Resp B/P Pulse Ox O2 Delivery O2 Flow Rate FiO2 01/10/17 11:32 75 18 95 Nasal Cannula 1.0 01/10/17 08:00 Nasal Cannula 2.0 01/10/17 07:37 82 18 98 Nasal Cannula 2.0 01/10/17 06:46 36.5 89 20 124/83 96 Nasal Cannula 2.0 01/10/17 00:20 Nasal Cannula 2.0 01/09/17 22:41 36.3 100 18 119/79 95 Nasal Cannula 2.0 01/09/17 19:57 90 18 92 Nasal Cannula 2.0 01/09/17 16:08 82 18 99 Nasal Cannula 3.0 01/09/17 16:00 Nasal Cannula 3.0 01/09/17 14:57 36.8 97 20 135/88 94 3.0 Lab Results: Results Past 24 Hours Test 01/09/17 18:39 01/09/17 20:36 01/10/17 05:51 01/10/17 07:30 Range/Units Bedside Glucose 290 236 143 70-99 mg/dl Sodium Level 132 136-145 mmol/L Potassium Level 4.1 3.5-5.1 mmol/L Chloride Level 94 98-107 mmol/L Carbon Dioxide Level 31 21-32 mmol/L Anion Gap 7.0 3-11 mmol/L Blood Urea Nitrogen 73 7-18 mg/dl Creatinine 2.20 0.60-1.40 mg/dl Est Creatinine Clear Calc Drug Dose 29.6 ml/min Estimated GFR () 31.0 Estimated GFR (Non- 26.7 BUN/Creatinine Ratio 33.1 10-20 Random Glucose 141 70-99 mg/dl Calcium Level 8.9 8.5-10.1 mg/dl Test 01/10/17 11:42 Range/Units Bedside Glucose 248 70-99 mg/dl
[2017-01-10] MEDS: SIMVASTATIN 20 MG TAB PO SCH (20:07)
[2017-01-10] MEDS: TRAZODONE HCL 50 MG TAB PO SCH (20:07)
[2017-01-11] VITALS (9 sets, daily range): BP systolic 114–119; BP diastolic 75–82; PULSE 79–118; TEMP 36.3–36.6; O2SAT 92–98
[2017-01-11 06:41] LABS: HEMATOCRIT 35.4 % (42-52); MEAN CELL VOLUME 83.7 fL (80-100); MEAN CORPUSCULAR HEMOGLOBIN 27.4 pg (25-34); MEAN CORPUSCULAR HGB CONC 32.8 g/dl (32-36); MEAN PLATELET VOLUME 9.8 fL (7.4-10.4); PLATELET COUNT 121 K/uL (130-400); RED BLOOD COUNT 4.23 M/uL (4.7-6.1); WHITE BLOOD COUNT 5.89 K/uL (4.8-10.8)
[2017-01-11 07:15] LABS: BUN/CREATININE RATIO 31.4 (10-20); CALCIUM 8.8 mg/dl (8.5-10.1); CREATININE 2.3 mg/dl (0.60-1.40); MAGNESIUM 2.4 mg/dl (1.8-2.4); POTASSIUM 3.9 mmol/L (3.5-5.1)
[2017-01-11] MEDS: POLYETHYLENE (MIRALAX) 17 GM PACK PO SCH (08:00)
[2017-01-11] MEDS: RANITIDINE HCL 150 MG TAB PO SCH ×2 (08:19→21:08)
[2017-01-11] MEDS: LACTOBACILLUS ACIDOPHILUS (FLORANEX) TAB PO SCH ×2 (08:19→21:09)
[2017-01-11] MEDS: MAGNESIUM CHLORIDE 64MG DELAYED REL TAB PO SCH ×2 (08:19→21:09)
[2017-01-11] MEDS: ASPIRIN 81 MG ECTAB PO SCH (08:19)
[2017-01-11] MEDS: ALBUT/IPRATROP 3MG/0.5MG NEB 3 ML VIAL INH SCH ×3 (08:20→19:06)
[2017-01-11] MEDS: TORSEMIDE 20 MG TAB PO SCH (08:20)
[2017-01-11] MEDS: INSULIN GLARGINE SOLOSTAR 100 UNITS/ML 3 ML PEN SC SCH ×2 (08:44→21:06)
[2017-01-11] MEDS: INSULIN ASPART 100 UNITS/ML 3 ML PEN SC SCH ×4 (08:45→21:06)
[2017-01-11] MEDS: HEPARIN SOD 5000 UNIT/0.5 ML CARP SQ SCH ×2 (08:46→21:07)
--- NOTE | 2017-01-11 08:53 | Cardiology Follow-Up ---
Subjective General Date of Service: Jan 11, 2017. Chief Complaint: follow up SOB, edema Pt evaluation today including: conversation w/ patient, physical exam, chart review, lab review, review of studies, review of inpatient medication list History of Present Illness Patient feeling well this AM. Anxious for discharge, possibly today. Denies SOB. States edema has improved. No chest pain. No dizziness, syncope or near syncope. He offers no complaints this AM. Allergies Coded Allergies: No Known Allergies (Unverified , 01/05/17) Social History Smoking Status: Former Smoker Hx Tobacco Use In Past Year?: No Hx Alcohol Use - Type And Amou: No Hx Substance Use - Type And Am: No Problem List Medical Problems: (1) Cellulitis of right leg Status: Acute (2) CHF exacerbation Status: Acute (3) Dependent edema Status: Acute (4) Fall Status: Acute (5) Hypoglycemia Status: Acute (6) Odontoid fracture Status: Acute (7) Pneumonia Status: Acute Review of Systems Respiratory: No cough, No dyspnea at rest, No hemoptysis, No shortness of breath, No sputum, No wheezing Cardiac: + edema, No PND, No chest pain, No orthopnea, No palpitations Physical Exam Vital Signs Last Vital Signs Documentation Date Time Temp Pulse Resp B/P Pulse Ox O2 Delivery O2 Flow Rate FiO2 01/11/17 07:36 79 18 94 01/11/17 07:21 36.3 114/77 01/11/17 00:00 Nasal Cannula 2.0 Physical Exam Constitutional: General Apperance: overweight Level of Distress: NAD, chronically ill Head: normocephalic Eyes: Pupils: PERRLA Neck: supple Lungs: Auscultation: pertinent finding (midly decreased BS at the bases) Cardiovascular: Heart Auscultation: II/ KELSEY, irregular rate rhythm Abdomen: Bowel Sounds: normal Inspection & Palpation: soft, non-distended Extremities: pertinent finding (trace to 1+ LE edema. Chronic stasis changes) Assessment and Plan Assessment and Plan Impression: 1. Acute on chronic systolic diastolic HF, with biventricular systolic dysfunction, clinically improving. 2. Moderate 3. COPD, prior tobacco abuse 4. Dementia 5. CKD 6. Chronic atrial fibrillation, previously deemed to not be a Coumadin candidate. Plan: Torsemide 10 mg daily on discharge. Additional tab as needed for increased weight/edema/SOB. Continue all other cardiac meds as prescribed currently. Will need BMP in several days as outpatient on current diuretic dose to monitor renal function/electrolytes. Close cardiology f/u in 1-2 weeks recommended in [facility]. Will assist in scheduling. Discussed with Dr. Wei/Dr. Garg CARDIOLOGY ATTENDING ADDENDUM: The patient was seen and personally examined. Agree with Ning Montague PA-C's findings and plans as documented above with additions as noted below. Pt feeling better. Marked diuresis noted during this hospital stay. Discharge to [facility] on Torsemide 10 mg daily. Laboratory Results Last 24 Hours Test 01/10/17 11:42 01/10/17 16:52 01/10/17 20:47 01/11/17 06:06 Bedside Glucose 248 mg/dl 289 mg/dl 301 mg/dl White Blood Count 5.89 K/uL Red Blood Count 4.23 M/uL Hemoglobin 11.6 g/dL Hematocrit 35.4 % Mean Corpuscular Volume 83.7 fL Mean Corpuscular Hemoglobin 27.4 pg Mean Corpuscular Hemoglobin Concent 32.8 g/dl RDW Standard Deviation 58.6 fL RDW Coefficient of Variation 19.2 % Platelet Count 121 K/uL Mean Platelet Volume 9.8 fL Sodium Level 133 mmol/L Potassium Level 3.9 mmol/L Chloride Level 94 mmol/L Carbon Dioxide Level 32 mmol/L Anion Gap 7.0 mmol/L Blood Urea Nitrogen 72 mg/dl Creatinine 2.30 mg/dl Est Creatinine Clear Calc Drug Dose 28.3 ml/min Estimated GFR () 29.3 Estimated GFR (Non- 25.3 BUN/Creatinine Ratio 31.4 Random Glucose 159 mg/dl Calcium Level 8.8 mg/dl Magnesium Level 2.4 mg/dl Test 01/11/17 07:23 Bedside Glucose 155 mg/dl
--- NOTE | 2017-01-11 12:09 | Progress Note ---
Internal Med Progress Note Date of Service: Jan 11, 2017. Provider Documentation: SUBJECTIVE: The patient was seen and examined Admitted with SOB ,no CP,Palpitation Denies any symptoms Clinically much better OBJECTIVE: Vital Signs-as noted below Exam: General-Minimal distress at rest Eyes-normal ENT-normal Neck-Supple Lungs-Decreased breath sound bilaterally No more wheezing and or crackled Heart-Regular,no murmur appreciated Abdomen-Benign,no masses,bowel sound present Extremities-1+ edema bilaterally -much improved Neuro-AA Pleasantly confused No focal Neuro deficit Lab data as noted below. ASSESSMENT & PLAN: Acute on Chronic Systolic CHF ::lost about 12 Kgs during this hospitalization Worsening SOB on admission CXR showed congestive heart failure and interstitial edema. Received IV Lasix in ER Aggressive Diuresis Appreciate cardiology input Echo done 0n 12/18/16 showed: * Left ventricular systolic function is mildly reduced. * Ejection Fraction = 40-45%. * The right ventricle is moderately dilated. * The right ventricular systolic function is moderately reduced. * Flattened septum is consistent with RV pressure/volume overload. * Dilated inferior vena cava with reduced collapsability with sniff indicates an elevated right atrial pressure of 15 mmHg * 2D echo imaging and doppler interrogation of the aortic valve are discordant. Moderate aortic valve stenosis is suspected. * There is mild to moderate mitral regurgitation. * There is mild tricuspid regurgitation. Repeat ECHO:: * The left ventricle is grossly normal size. * Ejection Fraction = 40-45%. * Flattened septum is consistent with RV pressure/volume overload. * The right ventricle is moderate to severely dilated. * The right ventricular systolic function is moderate to severely reduced. * The left atrium is severely dilated. * The right atrium is severely dilated. * Moderate valvular aortic stenosis. * There is mild mitral regurgitation. * There is mild to moderate tricuspid regurgitation. Continue Diuresis-lost about 10KGs Renal function is minimally worse will continue Lasix for now Diuresed a lot ,Ready to be discharged Clinically a lot better today Discharge on Torsemide today Cardiology follow up as an OP COPD No exacerbation but complicating CHF with Right sided heart failure continue breathing treatment And Diuretics May need Pulmonary involvement a swell Will try small dose of Prednisone Clinically much better today Quick Taper Prednisone No acute issue B/L LE edema-secondary rainer CHF Venous doppler of lower extremities negative for DVT Keep legs elevated and Follow low salt diet Much improved CKD stage 3 Creatine btw 2-2.5 baseline creatine on admission 2.1 May get worse with Diuresis Appreciate Nephrology input Cleared to be discharged -Creatinine 2.30 at his baseline Atrial Fibrillation had high grade AV block at [facility] and reverted after stopping digoxin not on anticoagulation secondary to question of occult GI bleed and anemia workup. Continue Aspirin Rate is controlled DM2 Type 2 Most recent hba1c 7.7 (11/25/16) on Lantus and iss Blood sugar remains stable Odontoid neck fracture recent cervical surgery at [facility] and site was infected with MRSA Stable Dementia as per records No acute delirium DVT px heparin subq (will monitor h/h) CODE STATUS FULL CODE Disposition Likely discharge tomorrow Vital Signs: Date Time Temp Pulse Resp B/P Pulse Ox O2 Delivery O2 Flow Rate FiO2 01/11/17 08:30 94 Nasal Cannula 3.0 01/11/17 07:36 79 18 94 01/11/17 07:21 36.3 80 20 114/77 92 01/11/17 00:00 Nasal Cannula 2.0 01/10/17 23:22 36.6 84 16 131/86 90 Room Air 01/10/17 20:00 Nasal Cannula 2.0 01/10/17 19:13 80 18 97 Nasal Cannula 1.5 01/10/17 16:10 36.3 103 18 120/73 93 Room Air 01/10/17 16:00 Nasal Cannula 2.0 01/10/17 14:34 80 18 97 Nasal Cannula 1.0 01/10/17 13:57 95 Lab Results: Results Past 24 Hours Test 01/10/17 16:52 01/10/17 20:47 01/11/17 06:06 01/11/17 07:23 Range/Units Bedside Glucose 289 301 155 70-99 mg/dl White Blood Count 5.89 4.8-10.8 K/uL Red Blood Count 4.23 4.7-6.1 M/uL Hemoglobin 11.6 14.0-18.0 g/dL Hematocrit 35.4 42-52 % Mean Corpuscular Volume 83.7 80-100 fL Mean Corpuscular Hemoglobin 27.4 25-34 pg Mean Corpuscular Hemoglobin Concent 32.8 32-36 g/dl RDW Standard Deviation 58.6 36.4-46.3 fL RDW Coefficient of Variation 19.2 11.5-14.5 % Platelet Count 121 130-400 K/uL Mean Platelet Volume 9.8 7.4-10.4 fL Sodium Level 133 136-145 mmol/L Potassium Level 3.9 3.5-5.1 mmol/L Chloride Level 94 98-107 mmol/L Carbon Dioxide Level 32 21-32 mmol/L Anion Gap 7.0 3-11 mmol/L Blood Urea Nitrogen 72 7-18 mg/dl Creatinine 2.30 0.60-1.40 mg/dl Est Creatinine Clear Calc Drug Dose 28.3 ml/min Estimated GFR () 29.3 Estimated GFR (Non- 25.3 BUN/Creatinine Ratio 31.4 10-20 Random Glucose 159 70-99 mg/dl Calcium Level 8.8 8.5-10.1 mg/dl Magnesium Level 2.4 1.8-2.4 mg/dl
[2017-01-11] MEDS: TRAZODONE HCL 50 MG TAB PO SCH (21:08)
[2017-01-11] MEDS: SIMVASTATIN 20 MG TAB PO SCH (21:10)
[2017-01-12 00:28] VITALS: O2SAT 92
[2017-01-12 07:14] LABS: BUN/CREATININE RATIO 31.4 (10-20); CALCIUM 9.1 mg/dl (8.5-10.1); CREATININE 2.4 mg/dl (0.60-1.40)
[2017-01-12 07:23] VITALS: BP 131/90; PULSE 85; TEMP 36.4; O2SAT 97
[2017-01-12 07:44] VITALS: PULSE 88; O2SAT 98
[2017-01-12] MEDS: INSULIN ASPART 100 UNITS/ML 3 ML PEN SC SCH ×3 (09:05→17:23)
[2017-01-12] MEDS: INSULIN GLARGINE SOLOSTAR 100 UNITS/ML 3 ML PEN SC SCH (09:05)
[2017-01-12] MEDS: HEPARIN SOD 5000 UNIT/0.5 ML CARP SQ SCH (09:06)
[2017-01-12] MEDS: IPRATROPIUM BROMIDE/ALBUTEROL respimat INH INH SCH ×3 (09:10→17:06)
[2017-01-12] MEDS: POLYETHYLENE (MIRALAX) 17 GM PACK PO SCH (09:10)
[2017-01-12] MEDS: TORSEMIDE 20 MG TAB PO SCH (09:11)
[2017-01-12] MEDS: LACTOBACILLUS ACIDOPHILUS (FLORANEX) TAB PO SCH (09:11)
[2017-01-12] MEDS: ASPIRIN 81 MG ECTAB PO SCH (09:11)
[2017-01-12] MEDS: RANITIDINE HCL 150 MG TAB PO SCH (09:12)
[2017-01-12] MEDS: MAGNESIUM CHLORIDE 64MG DELAYED REL TAB PO SCH (09:12)
--- NOTE | 2017-01-12 09:37 | Cardiology Follow-Up ---
Subjective General Date of Service: Jan 12, 2017. Chief Complaint: follow up SOB, edema Pt evaluation today including: conversation w/ patient, physical exam, chart review, lab review, review of studies, review of inpatient medication list History of Present Illness Patient feels well. Offers no complaints. Wants to be discharged. Denies chest pain or SOB. States edema is "good". Much improved from admission an states back to baseline. No orthopnea, PND. Allergies Coded Allergies: No Known Allergies (Unverified , 01/05/17) Social History Smoking Status: Former Smoker Hx Tobacco Use In Past Year?: No Hx Alcohol Use - Type And Amou: No Hx Substance Use - Type And Am: No Problem List Medical Problems: (1) Cellulitis of right leg Status: Acute (2) CHF exacerbation Status: Acute (3) Dependent edema Status: Acute (4) Fall Status: Acute (5) Hypoglycemia Status: Acute (6) Odontoid fracture Status: Acute (7) Pneumonia Status: Acute Review of Systems Respiratory: No dyspnea at rest, No hemoptysis, No shortness of breath, No wheezing Cardiac: No PND, No chest pain, No claudication, No edema, No orthopnea, No palpitations Physical Exam Vital Signs Last Vital Signs Documentation Date Time Temp Pulse Resp B/P Pulse Ox O2 Delivery O2 Flow Rate FiO2 01/12/17 07:44 88 12 98 Nasal Cannula 2.0 01/12/17 07:23 36.4 131/90 Physical Exam Constitutional: General Apperance: overweight Level of Distress: NAD, chronically ill Head: normocephalic Eyes: Pupils: PERRLA Neck: supple Lungs: Auscultation: pertinent finding (midly decreased BS at the bases) Cardiovascular: Heart Auscultation: II/ KELSEY, irregular rate rhythm Abdomen: Bowel Sounds: normal Inspection & Palpation: soft, non-distended Extremities: pertinent finding ( 1+ LE edema. Chronic stasis changes) Assessment and Plan Assessment and Plan Impression: 1. Acute on chronic systolic diastolic HF, with biventricular systolic dysfunction, clinically improving. 2. Moderate 3. COPD, prior tobacco abuse 4. Dementia 5. CKD, mild increase in creatinine noted 6. Chronic atrial fibrillation, previously deemed to not be a Coumadin candidate. Plan: Torsemide 10 mg daily on discharge. Additional tab as needed for increased weight/edema/SOB. Continue all other cardiac meds as prescribed currently. Will need BMP in several days as outpatient on current diuretic dose to monitor renal function/electrolytes. Concerned if diuretic dose reduced, worsening fluid status would occur as outpatient. Close cardiology f/u in 1-2 weeks recommended in [facility]. Will assist in scheduling. Discussed with Dr. Wei CARDIOLOGY ATTENDING ADDENDUM: The patient was seen and personally examined. Agree with Ning Montague PA-C's findings and plans as documented above. Laboratory Results Last 24 Hours Test 01/11/17 16:25 01/11/17 20:21 01/12/17 06:30 01/12/17 07:34 Bedside Glucose 194 mg/dl 270 mg/dl 138 mg/dl Sodium Level 133 mmol/L Potassium Level 4.0 mmol/L Chloride Level 95 mmol/L Carbon Dioxide Level 31 mmol/L Anion Gap 7.0 mmol/L Blood Urea Nitrogen 75 mg/dl Creatinine 2.40 mg/dl Est Creatinine Clear Calc Drug Dose 27.2 ml/min Estimated GFR () 27.9 Estimated GFR (Non- 24.0 BUN/Creatinine Ratio 31.4 Random Glucose 153 mg/dl Calcium Level 9.1 mg/dl
--- NOTE | 2017-01-12 14:07 | Progress Note ---
Medicine Progress Note Date & Time of Visit: Jan 12, 2017 at 13:55. Subjective Pt was seen and examined sitting in chair with no distress Pt said that he feels much better he said that he is able to go to the bathroom with no sob denies any chest pain, palpitation, dizziness Objective Last 8 Hrs Date Time Temp Pulse Resp B/P Pulse Ox O2 Delivery O2 Flow Rate FiO2 01/12/17 08:00 Nasal Cannula 2.0 01/12/17 07:44 88 12 98 Nasal Cannula 2.0 01/12/17 07:23 36.4 85 20 131/90 97 Nasal Cannula 2.0 Physical Exam: General- no acute distress Head- atraumatic Eyes- PERRL, EOMI ENT- oropharynx clear Neck- supple, no JVD Lungs- poor air entry Heart- regular rhythm; no murmur Abdomen- normal bowel sounds, soft Extremities- no calf tenderness Neuro- alert, oriented x 3; PERRL, EOMI Skin- warm & dry Laboratory Results: Last 24 Hours Test 01/11/17 16:25 01/11/17 20:21 01/12/17 06:30 01/12/17 07:34 Bedside Glucose 194 mg/dl 270 mg/dl 138 mg/dl Sodium Level 133 mmol/L Potassium Level 4.0 mmol/L Chloride Level 95 mmol/L Carbon Dioxide Level 31 mmol/L Anion Gap 7.0 mmol/L Blood Urea Nitrogen 75 mg/dl Creatinine 2.40 mg/dl Est Creatinine Clear Calc Drug Dose 27.2 ml/min Estimated GFR () 27.9 Estimated GFR (Non- 24.0 BUN/Creatinine Ratio 31.4 Random Glucose 153 mg/dl Calcium Level 9.1 mg/dl Test 01/12/17 11:22 Bedside Glucose 269 mg/dl Assessment & Plan Acute on Chronic Systolic CHF Worsening SOB on admission CXR showed congestive heart failure and interstitial edema. Received IV Lasix in ER Aggressive Diuresis Appreciate cardiology input Repeat ECHO on 01/06/17 * The left ventricle is grossly normal size. * Ejection Fraction = 40-45%. * Flattened septum is consistent with RV pressure/volume overload. * The right ventricle is moderate to severely dilated. * The right ventricular systolic function is moderate to severely reduced. * The left atrium is severely dilated. * The right atrium is severely dilated. * Moderate valvular aortic stenosis. * There is mild mitral regurgitation. * There is mild to moderate tricuspid regurgitation. Continue Diuresis-lost about 10KGs Continue torsemide 10 mg dailty Clinically a lot better today Discharge on Torsemide today Cardiology follow up as an OP COPD No exacerbation but complicating CHF with Right sided heart failure continue breathing treatment And Diuretics May need Pulmonary involvement a swell Will try small dose of Prednisone Clinically much better today Quick Taper Prednisone No acute issue B/L LE edema-secondary rainer CHF Venous doppler of lower extremities negative for DVT Keep legs elevated and Follow low salt diet Much improved CKD stage 4 Creatine btw 2-2.5 baseline creatine on admission 2.1 May get worse with Diuresis Appreciate Nephrology input Cleared to be discharged -Creatinine 2.40 at his baseline Check BMP in a couple days to monitor renal function Atrial Fibrillation had high grade AV block at [facility] and reverted after stopping digoxin not on anticoagulation secondary to question of occult GI bleed and anemia workup. Continue Aspirin Rate is controlled DM2 Type 2 Most recent hba1c 7.7 (11/25/16) on Lantus and iss Blood sugar remains stable Odontoid neck fracture recent cervical surgery at [facility] [place] and site was infected with MRSA Stable Dementia as per records No acute delirium DVT px heparin subq (will monitor h/h) CODE STATUS FULL CODE Disposition Will discharge today to [facility] Consultants: Cardiology Nephrology Current Inpatient Medications: Current Inpatient Medications Medications (Trade) Dose Ordered Sig/Claribel Route Start Time Stop Time Status Last Admin Dose Admin Acetaminophen (Tylenol Tab) 650 mg Q4H PRN PO 01/06/17 00:00 02/05/17 00:00 01/10/17 12:06 650 MG Albuterol (Ventolin Hfa Inhaler) 2 puffs Q4H PRN INH 01/06/17 00:00 02/05/17 00:00 01/06/17 23:38 2 PUFFS Aspirin (Ecotrin Tab) 81 mg QAM PO 01/06/17 09:00 02/05/17 08:59 01/12/17 09:11 81 MG Lactobacillus Acidophilus (Floranex Tab) 2 tab BID PO 01/06/17 09:00 02/05/17 08:59 01/12/17 09:11 2 TAB Magnesium Hydroxide (Milk Of Magnesia Susp) 30 ml DAILY PRN PO 01/06/17 00:00 02/05/17 00:00 Ondansetron HCl (Zofran Tab) 4 mg Q8 PRN PO 01/06/17 00:00 02/05/17 00:00 Ranitidine HCl (zANTac TAB) 150 mg BID PO 01/06/17 09:00 02/05/17 08:59 01/12/17 09:12 150 MG Simvastatin (Zocor Tab) 20 mg HS PO 01/06/17 21:00 02/05/17 20:59 01/11/17 21:10 20 MG Trazodone HCl (Desyrel Tab) 50 mg HS PO 01/06/17 21:00 02/05/17 20:59 01/11/17 21:08 50 MG Polyethylene (Miralax Powder Packet) 17 gm QAM PO 01/06/17 09:00 02/05/17 08:59 01/09/17 07:58 17 GM Non-Formulary Medication (Zinc Oxide (Topical) (Zinc Oxide)) 1 appln DIRECTED TOP 01/06/17 00:00 02/05/17 00:00 UNV Glucose (Glucose 40% Gel) 15-30 GRAMS 15 GRAMS... UD PRN PO 01/06/17 00:15 02/05/17 00:14 Glucose (Glucose Chew Tab) 4-8 Tablets 4 Tabl... UD PRN PO 01/06/17 00:15 02/05/17 00:14 Dextrose (Dextrose 50% 50ML Syringe) 25-50ML OF 50% DW IV FOR... UD PRN IV 01/06/17 00:15 02/05/17 00:14 01/07/17 07:36 25 ML Glucagon (Glucagon Inj) 1 mg UD PRN SQ 01/06/17 00:15 02/05/17 00:14 Insulin Aspart (novoLOG ASPART) SLIDING SCALE If C... ACHS SC 01/06/17 07:00 02/05/17 06:59 01/12/17 12:52 8 UNITS Heparin Sodium (Porcine) (Heparin Sq 5000 Unit/0.5ml) 5,000 unit Q12 SQ 01/06/17 09:00 02/05/17 08:59 01/12/17 09:06 5,000 UNIT Magnesium Chloride (Slow-Mag Tab) 64 mg BID PO 01/07/17 21:00 02/06/17 20:59 01/12/17 09:12 64 MG Prednisone (PredniSONE TAB) 40 mg DAILY PO 01/08/17 09:00 02/07/17 08:59 01/12/17 09:12 40 MG Insulin Glargine (Lantus Solostar Pen) 8 unit BID SC 01/07/17 21:00 02/06/17 20:59 01/12/17 09:05 8 UNIT Torsemide (Demadex Tab) 10 mg QAM PO 01/11/17 09:00 02/10/17 08:59 01/12/17 09:11 10 MG Albuterol/ Ipratropium (Combivent Respimat Inh) 1 puffs QID INH 01/12/17 08:00 02/11/17 07:59 01/12/17 12:04 1 PUFFS
[2017-01-12] MEDS ORDERED: DMD20 PO (14:22)
[2017-01-12] MEDS ORDERED: PRED10TA PO (14:22)
--- NOTE | 2017-01-12 14:28 | Discharge Instructions ---
Discharge Instructions Date of Service Jan 12, 2017. Admission Reason for Admission: Shortness Of Breath Discharge Discharge Diagnosis / Problem: Acute on chronic systolic heart failure, B/L LE edema, CKD stage 4 Discharge Goals Goal(s): Decrease discomfort, Improve function, Improve disease control Activity Recommendations Activity Limitations: resume your previous activity . Instructions / Follow-Up Instructions / Follow-Up Discharge to [facility] Close cardiology f/u in 1-2 weeks recommended in [facility] Check BMP in 3 to 5 days to monitor renal function and electrolytes Follow a low salt diet Complete prednisone taper dose Monitor blood Sugar Current Hospital Diet Patient's current hospital diet: AHA Diet (Heart Healthy), Low Sodium Diet (2gm Na), Diabetes Type 2 Diet Discharge Diet Recommended Diet: AHA Diet (Heart Healthy), Low Sodium Diet (2gm Na), Diabetes Type 2 Diet Pending Studies Studies pending at discharge: no Medical Emergencies . Who to Call and When: Medical Emergencies: If at any time you feel your situation is an emergency, please call 911 immediately. . Non-Emergent Contact Non-Emergency issues call your: Primary Care Provider . . "Provider Documentation" section prepared by Bi Rice. . VTE Core Measure Inpt VTE Proph given/why not?: Unfractionated heparin SQ
[2017-01-12] MEDS ORDERED: GUAI1TAB68 PO (14:35)
[2017-01-12 14:36] VITALS: BP 131/90; PULSE 88; TEMP 36.4; O2SAT 98
[2017-01-12 14:43] VITALS: BP 127/81; PULSE 84; TEMP 36.6; O2SAT 96
[2017-01-12] MEDS ORDERED: GUAIFENESIN 200 MG TAB PO PRN (14:45)
--- NOTE | 2017-01-15 08:18 | Discharge Summary ---
Discharge Summary Date of Service Jan 15, 2017. Discharge Summary Admission Date: Jan 06, 2017 at 02:53 Discharge Date: Jan 12, 2017 Discharge Disposition: [facility] facility Principal Diagnosis: Acute on Chronic Systolic CHF Secondary Diagnoses/Problems: B/L LE edema-secondary to CHF CKD stage 4 Odontoid neck fracture Afib DM Type 2 Dyslipidemia Consultations: Cardiology Nephrology Medication Reconciliation New Medications: Guaifenesin (Organ-I Nr) 200 Mg Tab 1 TAB PO Q6H PRN for Cough for 7 Days Prednisone Tab (Prednisone) 10 Mg Tab 10 MG PO UD for 5 Days, TAB take 2 tab for 3 days, then 1 tab for 2 days. Torsemide (Torsemide) 20 Mg Tab 10 MG PO QAM for 30 Days, #15 TAB Continued Medications: Acetaminophen (Tylenol) 325 Mg Tab 650 MG PO Q4H PRN for Pain or Fever, TAB MAX OF 3 GRAMS/24 HOURS. Albuterol Sulfate (Proventil Hfa) 108 Mcg/Act Aer 2 PUFFS INH Q4H PRN for Shortness of Breath Aspirin (Aspir-81) 81 Mg Tab 1 TAB PO QAM for 30 Days, #30 TAB 5 Refills Bisacodyl (Dulcolax) 10 Mg Sup 1 SUPP MI, SUP Docusate Sodium (Dok) 100 Mg Tab 100 MG PO BID Insulin Aspart (Novolog Flexpen) 100 Units/Ml Inj 10 UNITS SC TIDM HOLD IF PT EATS <25% OF MEAL. Insulin Glargine (Lantus) 100 Unit/Ml Inj 20 UNITS SC QPM, VIAL Ipratropium Eola (Nasal) (Ipratropium Eola) 0.03 % Spr 1 DOSE INH Q6H Lactobacillus Acidophilus (Lactinex) Tab 2 TAB PO BID, TAB Magnesium Hydroxide (Milk Of Magnesia) 30 Ml Susp 30 ML PO DAILY PRN for Constipation, ML Melatonin (Kp Melatonin) 3 Mg Tab 3 MG PO HS for 30 Days, #30 TAB 2 Refills Ondansetron Hcl (Zofran) 4 Mg Tab 4 MG PO Q8 PRN for Nausea, TAB Oxygen (Oxygen) Gas 1 LITER NA PRN PRN for Shortness of Breath Polyethylene Glycol 3350 (Bulk (Polyethylene Glycol 3350) 1 Pow Pow 17 GM PO QAM for 30 Days, #527 GM 11 Refills Potassium Chloride (K-Tab) 20 Meq Tab 20 MEQ PO 2XWK TAKES WED & SAT. Ranitidine (Zantac) 150 Mg Tab 1 TAB PO BID for 30 Days, #60 TAB 3 Refills Simvastatin (Zocor) 20 Mg Tab 20 MG PO HS, TAB Trazodone Hcl (Trazodone) 50 Mg Tab 50 MG PO HS, TAB Zinc Oxide (Topical) (Zinc Oxide) 20 % Oin 1 APPLN TOP DIRECTED STARTED 12/23/16, APPLY TO BUTTOCKS AFTER SOILING FOR 21 DAYS. Discontinued Medications: Furosemide (Lasix) 20 Mg Tab 20 MG PO QAM for 90 Days, #90 TAB 1 Refill Metolazone (Zaroxolyn) 5 Mg Tab 5 MG PO 2XWK, TAB TAKES WED & SAT Admission Information HPI (per Admitting provider): 81 yo Male with PMH of P. Afib, Diverticulosis, DM type 2, Odontoid neck fracture, CKD stage 3, COPD, Diastolic/Systolic CHF was recently discharged on for acute respiratory failure. He was treated with antibiotic and bronchodilators for COD exacerbation; also he was given diuretics for heart failure. Due to his kidney function with his creatine btw 2 -2.5 there was some concerned bout to over diuresis him. He was discharged with lasix 20mg daily and metolazone 5 mg twice daily. he was sent as a direct admission from [facility] for increase in his weight and b/l LE edema associated with worsening SOB with minimal exertion and at rest. Pt gained almost 10 lbs in the last few days. he also complaint of orthopnea. His provider was told by Cardiology if pt's weight did not improve with effective diuresis in facility, he is to be readmitted for more aggressive diuresis management. Pt denies any chest pain, palpitation, dizziness, fever. he said that he is breathing seems to improved after received 40mg IV Lasix in the ER. Physical Exam (per Admitting): General Appearance: WD/WN, no apparent distress Head: normocephalic, atraumatic Eyes: normal inspection, PERRL, EOMI ENT: normal ENT inspection, hearing grossly normal Neck: supple, no JVD Respiratory/Chest: no accessory muscle use, + crackles Cardiovascular: + irregularly irregular Abdomen/GI: normal bowel sounds, non tender Back: normal inspection, no CVA tenderness Extremities/Musculoskelatal: no calf tenderness, + swelling Neurologic/Psych: no motor/sensory deficits, alert, normal mood/affect Skin: normal color, warm/dry Hospital Course Acute on Chronic Systolic CHF Worsening SOB on admission CXR showed congestive heart failure and interstitial edema. Received IV Lasix in ER Aggressive Diuresis Appreciate cardiology input Repeat ECHO on 01/06/17 * The left ventricle is grossly normal size. * Ejection Fraction = 40-45%. * Flattened septum is consistent with RV pressure/volume overload. * The right ventricle is moderate to severely dilated. * The right ventricular systolic function is moderate to severely reduced. * The left atrium is severely dilated. * The right atrium is severely dilated. * Moderate valvular aortic stenosis. * There is mild mitral regurgitation. * There is mild to moderate tricuspid regurgitation. Continue Diuresis-lost about 10KGs Continue torsemide 10 mg dailty Clinically a lot better today Discharge on Torsemide today Cardiology follow up as an OP COPD No exacerbation but complicating CHF with Right sided heart failure continue breathing treatment And Diuretics May need Pulmonary involvement a swell Will try small dose of Prednisone Clinically much better today Quick Taper Prednisone No acute issue B/L LE edema-secondary to CHF Venous doppler of lower extremities negative for DVT Keep legs elevated and Follow low salt diet Much improved CKD stage 4 Creatine btw 2-2.5 baseline creatine on admission 2.1 May get worse with Diuresis Appreciate Nephrology input Cleared to be discharged -Creatinine 2.40 at his baseline Check BMP in a couple days to monitor renal function Atrial Fibrillation had high grade AV block at [facility] [place] and reverted after stopping digoxin not on anticoagulation secondary to question of occult GI bleed and anemia workup. Continue Aspirin Rate is controlled DM2 Type 2 Most recent hba1c 7.7 (11/25/16) on Lantus and iss Blood sugar remains stable Odontoid neck fracture recent cervical surgery at [facility] [place] and site was infected with MRSA Stable Dementia as per records No acute delirium DVT px heparin subq (will monitor h/h) CODE STATUS FULL CODE Disposition Will discharge today to [facility] Total time spent on discharge = 35 min This includes examination of the patient, discharge planning, medication reconciliation, and communication with other providers. Discharge Instructions Discharge Instructions Date of Service Jan 12, 2017. Admission Reason for Admission: Shortness Of Breath Discharge Discharge Diagnosis / Problem: Acute on chronic systolic heart failure, B/L LE edema, CKD stage 4 Discharge Goals Goal(s): Decrease discomfort, Improve function, Improve disease control Activity Recommendations Activity Limitations: resume your previous activity . Instructions / Follow-Up Instructions / Follow-Up Discharge to [facility] Close cardiology f/u in 1-2 weeks recommended in [facility] Check BMP in 3 to 5 days to monitor renal function and electrolytes Follow a low salt diet Complete prednisone taper dose Monitor blood Sugar Current Hospital Diet Patient's current hospital diet: AHA Diet (Heart Healthy), Low Sodium Diet (2gm Na), Diabetes Type 2 Diet Discharge Diet Recommended Diet: AHA Diet (Heart Healthy), Low Sodium Diet (2gm Na), Diabetes Type 2 Diet Pending Studies Studies pending at discharge: no Medical Emergencies . Who to Call and When: Medical Emergencies: If at any time you feel your situation is an emergency, please call 911 immediately. . Non-Emergent Contact Non-Emergency issues call your: Primary Care Provider . . "Provider Documentation" section prepared by Bi Rice. . VTE Core Measure Inpt VTE Proph given/why not?: Unfractionated heparin SQ Additional Copies To Antoine Garcia M.D., [facility]
[2017-02-19] MEDS ORDERED: FINA5TAB PO (13:39)
[2017-02-19] MEDS ORDERED: AMOX500T PO (13:39)
[2017-02-19] MEDS ORDERED: NVLG SC ×2 (13:39)
[2017-02-19] MEDS ORDERED: SODI1ENE PR (13:39)
[2017-02-19] MEDS ORDERED: ADVIN50/60 INH (13:39)
[2017-02-19] MEDS ORDERED: TORS10TA14 PO ×2 (13:39)
[2017-02-19] MEDS ORDERED: LORA-741 PO (13:39)
[2017-02-19] MEDS ORDERED: IPRASOL4 INH (13:39)
== END 2017-01-12 17:45 | DRG 291 ==
LOC: ENRESERVTM → ENRESERVDT → EDBD 20:06 → C.EDA 20:07 → UNDOADMIN 23:13 → C.2T 23:13 → EDBEDREQ 23:24 → C.2T 01-06 02:53 → C.4E 01-09 12:40
PROVIDERS: ADMIT Internal Medicine; ATTEND Internal Medicine
DX: I13.0 Hypertensive heart and chronic kidney disease with heart failure and stage 1 through stage 4 chronic kidney disease, or unspecified chronic kidney disease (principal); I50.43 Acute on chronic combined systolic (congestive) and diastolic (congestive) heart failure; N18.4 Chronic kidney disease, stage 4 (severe); L03.115 Cellulitis of right lower limb; I48.91 Unspecified atrial fibrillation; J44.9 Chronic obstructive pulmonary disease, unspecified; E11.649 Type 2 diabetes mellitus with hypoglycemia without coma; I35.0 Nonrheumatic aortic (valve) stenosis; E11.21 Type 2 diabetes mellitus with diabetic nephropathy; E87.6 Hypokalemia; F03.90 Unspecified dementia, unspecified severity, without behavioral disturbance, psychotic disturbance, mood disturbance, and anxiety; E78.5 Hyperlipidemia, unspecified; Z96.641 Presence of right artificial hip joint; Z96.651 Presence of right artificial knee joint; Z83.3 Family history of diabetes mellitus; Z87.891 Personal history of nicotine dependence; Z79.01 Long term (current) use of anticoagulants; Z86.14 Personal history of Methicillin resistant Staphylococcus aureus infection